=== PATIENT | male | born 1950 | race Caucasian/White ===

== ENCOUNTER → 2018-06-17 08:08 | Outpatient (CLI) | payer MEDICARE, OTHER, SELFPAY ==
[2018-06-17 11:18] LABS: ALB/GLOB Ratio 0.9 RATIO (0.9-2.4); AST(SGOT) 18 U/L (15-37); Alanine Aminotransfer ALT/SGPT 30 U/L (16-61); Albumin, Serum 3.5 g/dL (3.2-5.0); Alkaline Phosphatase 92 U/L (45-117); Anion Gap 6 (5-15); BUN 21 mg/dL (7-18); BUN/Creat Ratio 18.9 RATIO (10-20); Calcium,Total 8.8 mg/dL (8.5-10.1); Chloride 105 mmol/L (98-107); Cholesterol 167 mg/dL (200); Creatinine, Serum 1.11 mg/dL (0.70-1.30); EST Glomerular Filtration Rate 70 mL/min (>60); Est Glom Filt Rate - Afr Amer 85 mL/min (>60); Globulin 3.7 g/dL (2.2-4.2); Glucose 108 mg/dL (74-106); High Density Lipoprotein 43 mg/dL; Potassium 4.5 mmol/L (3.5-5.1); Protein, Total 7.2 g/dL (6.4-8.2); Sodium Level 140 mmol/L (136-145); Triglycerides 164 mg/dL; Very Low Density Lipoprotein 33 mg/dL (5-40)
[2018-06-17 11:19] LABS: Hemoglobin A1c 6.1 % (4.2-6.3)
--- OUTSIDE RECORDS SUMMARY | 2018-08-11 19:01 | XMS RPT_ITS ---
:1950 Author Organization OHIP Care Team Providers Name Role Phone CIRO MENDEZ Attending Unavailable CIRO CAMPOS Attending Unavailable BRYAN QUEEN Attending Unavailable BRYAN QUEEN Referring Unavailable BRYAN QUEEN Primary Care Unavailable PROBLEMS PROBLEMS DATE TYPE CONDITION / CODE ATTENDING STATUS SOURCE 06/17/2018 Unknown E78.5 - BRYAN QUEEN Active [place] Hyperlipidemia, Community unspecified / Hospital E78.5(ICD-10) Repository 06/17/2018 Unknown E11.65 - Type 2 BRYAN QUEEN Active [place] diabetes mellitus [facility] with hyperglycemia Hospital / E11.65(ICD-10) Repository 10/24/2017 Admitting Unknown / Paul MENDEZ [facility] diagnosis UNK(Unknown) CIRO o[facility]ta [facility] Repository PROCEDURES PROCEDURES No Procedure Records FoundRESULTS RESULTS COMPREHENSIVE METABOLIC Collected: 06/17/2018 Status: F Source: LEIGH PROFIL 8:54 AM [facility] HOSPITAL REPOSITORY TYPE CODE TESTS RESULT OUT OF RANGE REFERENCE UNITS LAB L501.0100 74-106 mg/dL High GLU 108 Result Comment: Fasting Glucose result from 100 to 125 mg/dL suggests IMPAIRED HOMEOSTASIS per A.D.A. criteria. Please note revised GLUCOSE reference range effective 2017. LAB L501.1000 7-18 mg/dL High BUN 21 LAB L501.1100 0.70-1.30 mg/dL Normal CREAT,SERUM 1.11 Result Comment: The validity of the calculated GFR AND GFRAA in patients over 70 years has not been determined. Clinical correlation is essential. LAB L501.1110 >60 mL/min Normal EST GFR 70 Result Comment: Non- GFR Calc LAB L501.1115 >60 mL/min Normal EST GFR - AA 85 Result Comment: GFR Calc LAB L501.1300 10-20 RATIO Normal BUN/CRE 18.9 LAB L501.1500 6.4-8.2 g/dL T Normal PROT 7.2 LAB L501.1800 3.2-5.0 g/dL Normal ALB 3.5 LAB L501.1950 2.2-4.2 g/dL Normal GLOB 3.7 LAB L501.2000 0.9-2.4 RATIO Normal A/G 0.9 LAB L501.2200 8.5-10.1 mg/dL CA Normal 8.8 LAB L501.4100 15-37 U/L Normal AST 18 LAB L501.4305 45-117 U/L Normal ALK P 92 LAB L501.4405 16-61 U/L Normal ALT 30 LAB L501.4600 0.20-1.00 mg/dL T Normal BILI 0.30 LAB L501.5300 136-145 mmol/L NA Normal 140 LAB L501.5600 3.5-5.1 mmol/L K Normal 4.5 LAB L501.5900 98-107 mmol/L CL Normal 105 LAB L501.6100 21.0-32.0 mmol/L Normal CO2 29.0 LAB L501.6200 5-15 Normal GAP 6 Performed By: #### L500.4050, L500.4100 #### [facility] [address] [place], [address] LIPID PROFILE Collected: 06/17/2018 Status: F Source: [place]IGHT 8:54 AM [facility] REPOSITORY TYPE CODE TESTS RESULT OUT OF RANGE REFERENCE UNITS LAB L501.4900 200 mg/dL Normal CHOL 167 Result Comment: <200 mg/dL Desirable 200-240 mg/dL Borderline >240 mg/dL High Risk LAB L501.5000 mg/dL Normal TRIG 164 Result Comment: The drugs N-Acetylcysteine and Metamizole may falsely depress this assay. Serum Triglycerides Reference Interval Normal <150 mg/dL Borderline high 150 - 199 mg/dL High 200 - 499 mg/dL Very High > or = 500 mg/dL LAB L501.6400 mg/dL Normal HDL 43 Result Comment: The drugs N-Acetylcysteine and Metamizole may falsely depress this assay. Reference Range HDL <40 mg/dL Low HDL Cholesterol HDL >or= 60 mg/dL High HDL Cholesterol LAB L501.6500 0-130 mg/dL Normal LDL 91 LAB L501.6600 5-40 mg/dL Normal VLDL 33 Performed By: #### L500.4050, L500.4100 #### [facility] [address] [facility] [place], [address] HEMOGLOBIN A1C Collected: 06/17/2018 Status: F Source: AL[place]IGHT 8:54 AM [facility] REPOSITORY TYPE CODE TESTS RESULT OUT OF RANGE REFERENCE UNITS LAB L501.9985 4.2-6.3 % Normal HGB A1C 6.1 Performed By: #### L501.9985 #### [facility] [address] [place], [address] PSA Collected: 11/01/2017 Status: F Source: [facility] 11:27 AM HOSPITAL REPOSITORY TYPE CODE TESTS RESULT OUT OF RANGE REFERENCE UNITS LAB L304.0155 0.0-4.1 ng/mL Normal PSA < 0.1 Result Comment: Limitations: Elevations may also be associated with urethral instrumentation including catheterization of the bladder, TUR, prostatic needle biopsy, urinary retention, or prostatic infarct. Because PSA is also present in para-urethral and anal glands, as well as in breast tissue or with breast cancer, low levels of PSA can also be detected in sera from women. PSA may still be detectable even after radical prostatectomy. Performed By: #### L304.0155 #### [facility] [address] [place] [address] CMP Collected: 10/24/2017 Status: F Source: [facility] 9:48 AM HOSPITAL REPOSITORY TYPE CODE TESTS RESULT OUT OF RANGE REFERENCE UNITS LAB L100.0060 82-115 mg/dL Low GLUCOSE 56 LAB L100.0110 8-23 mg/dL BUN Normal 23 LAB L100.0131 0.70-1.20 mg/dL Normal CREATININE 1.17 LAB L100.0140 8.8-10.2 mg/dL CALCIUM Normal 9.7 LAB L100.0150 135-145 mmol/L SODIUM Normal 141 LAB L100.0160 3.5-5.0 mmol/L Normal POTASSIUM 4.4 LAB L100.0170 98-107 mmol/L CHLORIDE Normal 100 LAB L100.0180 22-29 mmol/L TCO2 Normal 26 LAB L100.0185 15-22 mmol/L ANION Normal GAP 19.4 LAB L100.0200 6.4-8.3 g/dL TOTAL Normal PROTEIN 7.3 LAB L100.0210 3.5-5.2 g/dL ALBUMIN Normal 4.1 LAB L100.0220 0.2-1.2 mg/dL TOTAL Normal BILIRUBIN 0.4 LAB L100.0240 5-40 U/L AST Normal 25 LAB L100.0250 5-41 U/L ALT Normal 31 LAB L100.0260 40-130 U/L ALK. Normal PHOS 89 LAB L100.0262 1.5-4.5 g/dL Normal GLOBULIN,CALC 3.2 LAB L100.0264 1.1-2.5 A:G Normal RATIO 1.28 LAB L100.0274 eGFR Normal nonAFR Kary > 60 ml/Min/1.73m 2 LAB L100.0275 eGFR if Normal AFR KARY > 60 ml/min/1.73m 2 Result Comment: eGFR >= 60 Indicates normal kidney function. * eGFR IS AN ESTIMATE * (AFR KARY = ) (non-AFR AM = NON-) MDRD calculation used in the eGFR should not be used to dose medications. For further limitations of the eGFR please refer to the Physician Website or the National Kidney Disease Education Program website (www.nkdep.nih.gov). Performed By: #### L100.0005, L100.0040 #### [facility] [address] [place] [address] LIPID PANEL Collected: 10/24/2017 Status: F Source: [facility] 9:48 AM HOSPITAL REPOSITORY TYPE CODE TESTS RESULT OUT OF REFERENCE UNITS RANGE LAB L100.0280 130-200 mg/dL CHOLESTEROL Normal 166 LAB L100.0290 mg/dL TRIGLYCERIDE Normal 124 Result Comment: TRIG: DESIRABLE: <150 mg/dL LAB L100.0300 mg/dL Normal HDL 47 Result Comment: HDL: POOR (MEN) BELOW 40 mg/dL POOR (WOMEN) BELOW 50 mg/dL BETTER 50-59 mg/dL BEST 60 mg/dL and above LAB L100.0310 6-40 mg/dL Normal VLDL 25 LAB L100.0320 mg/dL Normal LDL 94 Result Comment: LDL: OPTIMAL FOR PEOPLE AT VERY HIGH RISK <70 OPTIMAL <100 NEAR OPTIMAL 100-129 BORDERLINE HIGH 130-159 HIGH 160-189 VERY HIGH >=190 NOTE: CHANGES MADE TO RECOMMENDED GOALS OF APRIL 2009. Source: 2008 NCEP ATP III, ADA Guidelines LAB L100.0330 Normal LDL/HDL RATIO 2.0 Performed By: #### L100.0005, L100.0040 #### [facility] [address] [place] [address] HGBA1C Collected: 10/24/2017 Status: F Source: [facility] 9:48 AM HOSPITAL REPOSITORY TYPE CODE TESTS RESULT OUT OF RANGE REFERENCE UNITS LAB L200.2000 4.3-6.1 % High HgbA1C 6.2 Result Comment: Estimated Average Glucose: HgbA1C % mg/dL 4.0 68 5.0 97 6.0 125 7.0 154 8.0 183 9.0 212 10.0 240 Source: [place] [employer] web site, 2017. Performed By: #### L200.2000 #### [facility] [address] [place] [address] ALLERGIES ALLERGIES No Allergies Records FoundENCOUNTERS ENCOUNTERS ADMIT/DISCHARGE ACCOUNT ADMITTING ENCOUNTER LOCATION SOURCE NUMBER CLASS 06/17/2018 [id number] Ambulatory [facility]oo [address] [place] [address] Hospital ing:LAB Repository 11/01/2017 [id number] Ambulatory UNIBuilding:L Tracy [address] [facility] Repository 10/24/2017 [id number] Ambulatory UNIBuilding:[address] Repository PAYERS PAYERS ENCOUNTER GUARANTOR PAYER SUBSCRIBER SOURCE 06/17/2018 IRISH NICOLAS26 Insurance:MEDICARE PSYCHIATRICDOB: [facility] [id number]: Repository [id number]: [phone] [id number] [phone] () Date:2018-06-17 06/17/2018 Secondary IRISH D [place] Insurance:[facility] system[facility] NICOLASDOB: [facility] Number: [id number] [id number] Repository Date:[id number], [place] [address]DE: 06/17/2018 Tertiary NOT GIVENUNK [place] Insurance:SELF PAY [facility] Number: Effective Repository Date:2018-06-17 11/01/2017 IRISH D Primary IRISH D [facility]26 Insurance:MEDICAREPol [facility] [address] Number: Repository [place], [place] [id number]: ([phone]) Date:2015-02-15 [phone] () 11/01/2017 Secondary [facility] Insurance:AARP CLAIMS [facility] Repository Number: [id number] Date: 10/24/2017 IRISH D Primary IRISH D [facility]1088 Insurance:MEDICAREPol [facility] [address] icy Number: [facility]ository [facility] [place] [id number]: [phone]) Date:2015-02-15 [phone] () 10/24/2017 Secondary [facility] Insurance:AAR CLAIMS [facility] Repository Number: [id number] Date:
== END ==
DX: E11.65 Type 2 diabetes mellitus with hyperglycemia (principal); E78.5 Hyperlipidemia, unspecified
CPT/HCPCS: 36415; 80053; 80061; 83036

== ENCOUNTER → 2019-08-06 09:14 | Outpatient (CLI) | payer MEDICARE, SELFPAY ==
[2019-08-06 11:16] LABS: Microalbumin,Random Urine 57.3 mg/L (NO RANGE EST.); Microalbumin:Creatinine Ratio 38.2 mg/g CRE (<30 mg/g CRE)
[2019-08-06 11:24] LABS: Hemoglobin A1c 6.6 % (4.2-6.3)
[2019-08-06 11:25] LABS: ALB/GLOB Ratio 0.9 RATIO (0.9-2.4); AST(SGOT) 16 U/L (15-37); Alanine Aminotransfer ALT/SGPT 30 U/L (16-61); Albumin, Serum 3.6 g/dL (3.2-5.0); Alkaline Phosphatase 92 U/L (45-117); Anion Gap 4 (5-15); BUN 19 mg/dL (7-18); BUN/Creat Ratio 14.3 RATIO (10-20); Calcium,Total 9.2 mg/dL (8.5-10.1); Chloride 106 mmol/L (98-107); Cholesterol 143 mg/dL (200); Creatinine, Serum 1.33 mg/dL (0.70-1.30); EST Glomerular Filtration Rate 57 mL/min (>60); Est Glom Filt Rate - Afr Amer 69 mL/min (>60); Glucose 91 mg/dL (74-106); High Density Lipoprotein 39 mg/dL; Potassium 4.1 mmol/L (3.5-5.1); Protein, Total 7.6 g/dL (6.4-8.2); Sodium Level 139 mmol/L (136-145); Triglycerides 153 mg/dL; Very Low Density Lipoprotein 31 mg/dL (5-40)
== END ==
PROVIDERS: PCP Family Medicine; Referring Provider Family Medicine; Visit Provider Family Medicine
DX: E11.9 Type 2 diabetes mellitus without complications (principal); I10 Essential (primary) hypertension; K21.9 Gastro-esophageal reflux disease without esophagitis
CPT/HCPCS: 36415; 80053; 80061; 82043; 82570; 83036

== ENCOUNTER → 2020-08-18 08:28 | Outpatient (CLI) | payer MEDICARE, SELFPAY ==
[2020-08-18 09:11] LABS: Absolute Lymphocyte Count 1.28 X10^3/uL (0.83-4.51); Absolute Neutrophil Count 5.2 X10^3/uL (2.0-7.7); Basophil# 0.05 X10^3/uL; Basophil% 0.7 % (0-1); Eosinophil# 0.22 X10^3/uL; Eosinophils% 2.9 % (0-5); Hematocrit 36.9 % (40-54); Lymphocyte # 1.28 X10^3/ul (4.0); Lymphocyte % 17.1 % (19-41); Mean Corp Hgb Conc 32.5 g/dL (32-36); Mean Corpuscular Hgb 28.8 pg (27.0-32.0); Mean Corpuscular Volume 88.7 fL (80-94); Mean Platelet Vol. 9.6 fl (6.2-12.0); Monocyte# 0.63 X10^3/uL; Monocyte% 8.4 % (0-10); NRBC Flagged by Analyzer 0 % (0-5); Neutrophil # 5.24 X10^3/uL (2.7-7.7); Neutrophil % 70.2 % (47-70); Platelet Count 256 K/mm3 (150-450); RBC Distribution Width CV 13.5 % (11.6-14.6); RBC Distribution Width SD 43.8 fl (35.1-43.9); Red Blood Count 4.16 M/mm3 (4.6-6.2); White Blood Count 7.5 K/mm3 (4.4-11.0)
[2020-08-18 09:40] LABS: AST(SGOT) 22 U/L (15-37); Alanine Aminotransfer ALT/SGPT 31 U/L (16-61); Albumin, Serum 3.8 g/dL (3.2-5.0); Alkaline Phosphatase 100 U/L (45-117); Anion Gap 6 (5-15); BUN 26 mg/dL (7-18); BUN/Creat Ratio 16.8 RATIO (10-20); Calcium,Total 9.5 mg/dL (8.5-10.1); Chloride 102 mmol/L (98-107); Cholesterol 157 mg/dL (200); Creatinine, Serum 1.55 mg/dL (0.70-1.30); EST Glomerular Filtration Rate 47 mL/min (>60); Est Glom Filt Rate - Afr Amer 57 mL/min (>60); Globulin 3.8 g/dL (2.2-4.2); Glucose 117 mg/dL (74-106); High Density Lipoprotein 43 mg/dL; Potassium 4.5 mmol/L (3.5-5.1); Protein, Total 7.6 g/dL (6.4-8.2); Sodium Level 137 mmol/L (136-145); Triglycerides 153 mg/dL; Very Low Density Lipoprotein 31 mg/dL (5-40)
[2020-08-18 10:27] LABS: Microalbumin:Creatinine Ratio 51.7 mg/g CRE (<30 mg/g CRE)
== END ==
PROVIDERS: PCP Family Medicine; Visit Provider Family Medicine
DX: E11.9 Type 2 diabetes mellitus without complications (principal); I10 Essential (primary) hypertension; K21.9 Gastro-esophageal reflux disease without esophagitis
CPT/HCPCS: 36415; 80053; 80061; 82043; 82570; 85025

== ENCOUNTER 2021-04-21 13:43 | Outpatient (CLI) | payer MEDICARE, SELFPAY ==
[2021-04-21 13:55] VITALS: BP 149/56; PULSE 101; RESP 28; TEMP 38.3; O2SAT 88
--- NOTE | 2021-04-21 14:09 | NURSING ---
Pt noted to be tachypneic on arrival to unit with O2 sat ranging from 88-89%. Pt observed for approx 10min with sat up to 90% briefly and back to 88-89%. Yuko Banuelos contacted to update on vital signs. Pt no longer appropriate for infusion and transferred to ED for further evaluation. Pt's Rachael present on unit and agreeable to ED visit.
== END 2021-04-21 14:15 | disposition home or self-care (01) ==
LOC: MS3OUT 13:43 → MS3 13:45
PROVIDERS: PCP Family Medicine; Referring Provider Nurse Practitioner Adult Health; Visit Provider Nurse Practitioner Adult Health
DX: Z23 Encounter for immunization (principal); U07.1 COVID-19
CPT/HCPCS: Q0244

== ENCOUNTER 2021-04-21 14:25 | Inpatient (IN) | payer MEDICARE, SELFPAY ==
[2021-04-21] VITALS (15 sets, daily range): BP systolic 103–130; BP diastolic 53–91; PULSE 77–167; RESP 16–45; TEMP 36.1–37.7; O2SAT 85–97; BMI 42.5; BMI 41.9
--- NOTE | 2021-04-21 14:45 | NURSING ---
NO OLD EKGS
--- NOTE | 2021-04-21 15:03 | EKG12_ITS ---
Test Reason : SOB Blood Pressure : / mmHG Vent. Rate : 130 BPM Atrial Rate : 337 BPM P-R Int : 000 ms QRS Dur : 136 ms QT Int : 348 ms P-R-T Axes : 000 010 -42 degrees QTc Int : 512 ms Atrial flutter with variable A-V block Right bundle branch block T wave abnormality, consider inferolateral ischemia Abnormal ECG Confirmed by KRIS HOFF, ANDIE ([id number]), pictures editor ISABELLA PONCE ([id number]) on 04/27/2021 9:45:26 A M Referred By: BERNY Confirmed By:CAROLYNN PONCE MD
[2021-04-21 15:21] LABS: Absolute Lymphocyte Count 0.63 X10^3/uL (0.83-4.51); Absolute Neutrophil Count 3.9 X10^3/uL (2.0-7.7); Basophil# 0.01 X10^3/uL; Basophil% 0.2 % (0-1); Hemoglobin 12.5 g/dL (13.0-16.5); Lymphocyte # 0.63 X10^3/ul (0.83-4.51); Mean Corp Hgb Conc 32.1 g/dL (32-36); Mean Corpuscular Hgb 28.2 pg (27.0-32.0); Mean Corpuscular Volume 87.8 fL (80-94); Mean Platelet Vol. 9.8 fl (6.2-12.0); Monocyte# 0.28 X10^3/uL; Monocyte% 5.8 % (0-10); NRBC Flagged by Analyzer 0 % (0-5); Neutrophil # 3.86 X10^3/uL (2.7-7.7); Neutrophil % 79.8 % (47-70); POSITIVE MORPHOLOGY YES; Platelet Count 204 K/mm3 (150-450); RBC Distribution Width CV 14.5 % (11.6-14.6); RBC Distribution Width SD 46.6 fl (35.1-43.9); Red Blood Count 4.44 M/mm3 (4.6-6.2); White Blood Count 4.8 K/mm3 (4.4-11.0)
[2021-04-21 15:23] LABS: Differential Indicated SCAN CRITERIA MET
[2021-04-21 15:24] LABS: Partial Thromboplast Time 33.1 Seconds (24.1-36.2); Prothrombin Time (Protime)PT. 12.7 SECONDS (11.7-14.9)
[2021-04-21 15:28] LABS: Erythrocyte Sedimentation Rate 15 mm/hr (0-20)
[2021-04-21 15:39] LABS: Anion Gap 10 (5-15); BUN 47 mg/dL (7-18); BUN/Creat Ratio 16.4 RATIO (10-20); Calcium,Total 8.3 mg/dL (8.5-10.1); Chloride 99 mmol/L (98-107); Creatinine, Serum 2.86 mg/dL (0.70-1.30); EST Glomerular Filtration Rate 23 mL/min (>60); Est Glom Filt Rate - Afr Amer 28 mL/min (>60); Estimated Creatinine Clearance 24.46 ml/min; Glucose 250 mg/dL (74-106); LDH 603 U/L (87-241); Lactic Acid 2.8 mmol/L (0.4-1.9); Potassium 5.4 mmol/L (3.5-5.1); Sodium Level 134 mmol/L (136-145); Troponin-I HS 66 pg/mL (3.0-78.0)
[2021-04-21 15:42] LABS: D-Dimer Quantitative (DVT/PE) 1.34 FEU/ug/m (0.27-0.49)
[2021-04-21] MEDS: Metoprolol Tartrate 5 MG/5 ML Vial IV (15:42)
[2021-04-21 15:44] LABS: Differential Comment SCANNED
[2021-04-21 15:53] LABS: BNP,B-Type NATRIURETIC PEPTIDE 253.4 pg/mL (0-100)
--- NOTE | 2021-04-21 16:42 | ED.VIS.DYS ---
HPI History of Present Illness Chief Complaint: Shortness of Breath Informant: patient Narrative Narrative: Patient is a 71-year-old male that was recently diagnosed with COVID-19 infection presenting with hypoxia. Patient had showed up to the infusion center today for monoclonal antibody infusion. His oxygen there was around 88% on room air. He does not wear home oxygen. He was sent to the emergency room for further evaluation. Patient denies any palpitation but was found to be tachycardic. He notes he is been having worsening shortness of breath of the past 3 days. He denies any swelling of his legs. He is continued to have fevers up to 102?F. He denies any other complaints at this time. He has not had his Covid vaccine. [facility] Medical History Diabetes High cholesterol Hypertension Home Medications aspirin 81 mg chewable tablet 81 mg PO DAILY 04/20/21 [History Last Taken Unknown] atorvastatin 20 mg tablet 20 mg PO DAILY 04/20/21 [History Last Taken Unknown] calcium carbonate 600 mg(1,500 mg)-vitamin D3 800 unit chewable tablet 1 tab PO DAILY 04/20/21 [History Last Taken Unknown] glimepiride 4 mg tablet 4 mg PO DAILY 04/20/21 [History Last Taken Unknown] lisinopril 40 mg tablet 40 mg PO DAILY 04/20/21 [History Last Taken Unknown] loratadine 10 mg tablet 10 mg PO DAILY 04/20/21 [History Last Taken Unknown] metformin 500 mg tablet 1,000 mg PO BID 04/20/21 [History Last Taken Unknown] nlymlxoq-uyg-jryic acid 300 mcg-lycopene 600 mcg-lutein 300 mcg tablet 1 tab PO DAILY 04/20/21 [History Last Taken Unknown] pantoprazole 20 mg tablet,delayed release 20 mg PO DAILY 04/20/21 [History Last Taken Unknown] pioglitazone 45 mg tablet 45 mg PO DAILY 04/20/21 [History Last Taken Unknown] Allergy/AdvReac Type Severity Reaction Status Date / Time No Known Allergies Allergy Unverified 04/20/21 13:19 Social History Smoking Status: Never smoker ROS ROS ED Constitutional Constitutional ED: Reports chills and fever(s) Eyes Eyes: Denies change in vision ENT ENT ED: Reports rhinorrhea; Denies ear pain Cardiovascular Cardiovascular: Denies chest pain, palpitations or racing heartbeat Respiratory/Chest Respiratory/Chest: Reports cough, dyspnea, dyspnea on exertion and sputum Gastrointestinal Gastrointestinal: Denies abdominal pain, nausea or vomiting Genitourinary Genitourinary ED: Denies dysuria Musculoskeletal Musculoskeletal: Reports myalgias; Denies arthralgias Integumentary Denies rash Neurologic Neurologic: Denies weakness Psychiatric Psychiatric: Denies anxiety or depression EXAM Physical Exam Const Vital Signs: 04/21/21 14:26 04/21/21 14:29 04/21/21 14:43 Temperature 97.3 F L 97.3 F L Temperature Source Temporal Temporal Pulse Rate 77 167 H 167 H Respiratory Rate 20 H 45 H 45 H Blood Pressure 130/74 H 129/91 H 129/91 H Blood Pressure Mean 92 103 103 Pulse Ox 85 97 97 Oxygen Delivery Method Nasal Cannula Nasal Cannula Oxygen Flow Rate (L/min) 2 2 04/21/21 15:48 04/21/21 16:00 Temperature Temperature Source Pulse Rate 83 81 Respiratory Rate 18 19 H Blood Pressure 103/58 L 114/58 L Blood Pressure Mean 73 76 Pulse Ox 95 95 Oxygen Delivery Method Room Air Room Air Oxygen Flow Rate (L/min) Positive well nourished, well developed and obese General Appearance ED: well developed Nutritional Appearance: obese HEENT Reports moist mucous membranes atraumatic Eyes PERRL and EOMs intact bilaterally Neck supple and no JVD Resp Resp Narrative: Fine crackles in all lung larkin appreciated Auscultation: diminished lung sounds Cardio no murmurs Rate: tachycardic Rhythm: abnormal rhythm GI non-tender and non-distended Palpation: soft Back/Spine normal to inspection Extremity normal to inspection Neuro CN's II-XII intact bilaterally Sensorium / Orientation: alert Motor Exam: Negative for general weakness Psych mental status grossly normal Skin Lesions: no lesions Rashes: no rashes MDM MDM MDM Narrative Medical decision making narrative: Patient evaluated for worsening hypoxia in the setting of COVID-19 infection. He was diagnosed COVID-19 over the weekend. Patient arrives in the ER and is found to be in atrial flutter with rapid ventricular response. He is hemodynamically stable and does not require immediate cardioversion. He is given 5 mg IV metoprolol and has rate control. I suspect his triggers is hypoxia. Patient is requiring submental oxygen is 85% on room air. He does have a lactic acidosis of 2.8 and I suspect this is secondary to his hypoxia. He does have an PIPE with a creatinine of 2.86. His baseline from earlier this year appears to be 1.55. Initially had ordered a CTA for evaluation of PE in the setting of hypoxia however this is canceled due to his acute renal insufficiency. Patient be placed on a heparin drip for anticoagulation associated with his atrial flutter as well as for possible PE. Chest x-ray still pending. He is admitted to the hospital service. He does have a mild elevation of his high sensitive troponin at 66 however I believe this is strain/rate related. Lab Data Attestation: I reviewed the patient's lab results. Labs: Laboratory Results - last 24 hr 04/21/21 04/21/21 04/21/21 14:42 14:42 14:42 WBC 4.8 RBC 4.44 L Hgb 12.5 L Hct 39.0 L MCV 87.8 MCH 28.2 MCHC 32.1 RDW Std Deviation 46.6 H RDW Coeff of Damion 14.5 Plt Count 204 MPV 9.8 Immature Gran % (Auto) 1.200 H Neut % (Auto) 79.8 H Lymph % (Auto) 13.0 L Hoke % (Auto) 5.8 Eos % (Auto) 0.0 Baso % (Auto) 0.2 Absolute Neuts (auto) 3.9 Absolute Lymphs (auto) 0.63 L Nucleated RBC % 0 Differential Comment SCANNED ESR 15 PT INR APTT D-Dimer Quant (PE/DVT) Sodium 134 L Potassium 5.4 H Chloride 99 Carbon Dioxide 25.0 Anion Gap 10 BUN 47 H Creatinine 2.86 H Estim Creat Clear Calc 24.46 Est GFR (MDRD) Af Amer 28 L Est GFR (MDRD) Non-Af 23 L BUN/Creatinine Ratio 16.4 Glucose 250 H Lactic Acid 2.8 H* Calcium 8.3 L Lactate Dehydrogenase 603 H Troponin I High Sens 66 C-React Prot Ext Range 72.70 H B-Natriuretic Peptide 04/21/21 04/21/21 14:42 15:10 WBC RBC Hgb Hct MCV MCH MCHC RDW Std Deviation RDW Coeff of Damion Plt Count MPV Immature Gran % (Auto) Neut % (Auto) Lymph % (Auto) Hoke % (Auto) Eos % (Auto) Baso % (Auto) Absolute Neuts (auto) Absolute Lymphs (auto) Nucleated RBC % Differential Comment ESR PT 12.7 INR 1.0 APTT 33.1 D-Dimer Quant (PE/DVT) 1.34 H* Sodium Potassium Chloride Carbon Dioxide Anion Gap BUN Creatinine Estim Creat Clear Calc Est GFR (MDRD) Af Amer Est GFR (MDRD) Non-Af BUN/Creatinine Ratio Glucose Lactic Acid Calcium Lactate Dehydrogenase Troponin I High Sens C-React Prot Ext Range B-Natriuretic Peptide 253.4 H Rhythm Strip Rhythm Strip: A-fib Rate: 130 Ectopy: None EKG Initial EKG: Attestation: I personally reviewed and interpreted this EKG as follows: Interpretation: Atrial Flutter Comments: Atrial flutter with very variable AV block at a rate of 130 Normal axis Right bundle branch block QRS 136 QTc 512 T wave inversions in inferior as well as precordial leads however I suspect this is strain related Discharge Plan Triage Chief Complaint: Shortness of Breath ED Provider: Aida Lara Dx/Rx/DC Orders Clinical Impression: Acute hypoxemic respiratory failure due to COVID-19, Atrial flutter with rapid ventricular response, Acute kidney insufficiency Prescriptions: No Action Caltrate 600 plus D 600 mg (1,500 mg)-800 unit tablet,chewable 1 tab PO DAILY RF: 0 Centrum Silver Men 300-600-300 mcg tablet 1 tab PO DAILY RF: 0 atorvastatin [Lipitor] 20 mg tablet 20 mg PO DAILY RF: 0 metformin 500 mg tablet 1,000 mg PO BID RF: 0 pioglitazone [Actos] 45 mg tablet 45 mg PO DAILY RF: 0 glimepiride 4 mg tablet 4 mg PO DAILY RF: 0 pantoprazole 20 mg tablet,delayed release (DR/EC) 20 mg PO DAILY RF: 0 loratadine [Allergy Relief (loratadine)] 10 mg tablet 10 mg PO DAILY RF: 0 aspirin [Neto Chewable Aspirin] 81 mg tablet,chewable 81 mg PO DAILY RF: 0 lisinopril 40 mg tablet 40 mg PO DAILY RF: 0 Primary Care Provider: Krissy Jean Baptiste Referrals: Krissy Jean Baptiste MD [Primary Care Provider] - Disposition Disposition: Acute Care [facility]
--- NOTE | 2021-04-21 16:43 | PCM.HP.STD ---
HPI - General General Date of Admission: 04/21/21 Date of Service: 04/21/21 Chief Complaint: COVID +, Dyspnea, Hypoxic, sent from infusion center HPI Narrative The patient is a 71 y/o M w/ PMHx: Chronic anemia, Morbid Obesity, HTN, HLD, Diabetes mellitus type II, FARSHAD on CPAP qHS who presents to the [facility] ED on 04/21/21 with history of unvaccinated Covid status with initial onset of Covid type symptoms starting 04/14/2021 eventually testing positive on 04/20/2021 with planned outpatient monoclonal antibody infusion on day of ED presentation however he upon evaluation was noted to be 85% on room air therefore immediately referred to the ED for evaluation. Patient reported symptoms including fever, chills, headache, mildly loose stools with abdominal cramping, cough and dyspnea as well as body aches, fatigue and malaise. Work-up in the ED included T101, heart rate 149/56, respiratory rate 28, 88% on room air however did decrease to 85% with activity, improved to 97% on 2 L nasal cannula, CBC with WBC 4.8, hemoglobin 12.5, platelet 204 with lymphopenia, coags with D-dimer 1.34 otherwise not marked appearing, CMP with sodium 134, potassium 5.4, BUN/creatinine 47/2.89, glucose 250, lactic acid 2.8, LDH 603, CRP 72.70, BNP 253.4, high-sensitivity cardiac troponin 66, chest x-ray with bilateral pulmonary infiltrates consistent with COVID-19 pneumonia. In the ED patient ministered 6 mg p.o. dexamethasone, normal saline as well as initiated on a heparin drip. [facility] Medical History (Updated 04/21/21 @ 19:[address] Viridiana Gilbert MD) Diabetes High cholesterol History of prostate cancer Hypertension Morbid obesity FARSHAD (obstructive sleep apnea) Home Medications aspirin 81 mg chewable tablet 81 mg PO DAILY 04/20/21 [History Last Taken 04/21/21] atorvastatin 20 mg tablet 20 mg PO DAILY 04/20/21 [History Last Taken 04/21/21] calcium carbonate 600 mg(1,500 mg)-vitamin D3 800 unit chewable tablet 1 tab PO DAILY 04/20/21 [History Last Taken 04/20/21] glimepiride 4 mg tablet 4 mg PO BID 04/20/21 [History Last Taken 04/21/21] lisinopril 40 mg tablet 40 mg PO DAILY 04/20/21 [History Last Taken 04/20/21] loratadine 10 mg tablet 10 mg PO DAILY 04/20/21 [History Last Taken 04/20/21] hwabauqo-eiu-cldkp acid 300 mcg-lycopene 600 mcg-lutein 300 mcg tablet 1 tab PO DAILY 04/20/21 [History Last Taken 04/21/21] pantoprazole 20 mg tablet,delayed release 20 mg PO DAILY 04/20/21 [History Last Taken 04/20/21] pioglitazone 45 mg tablet 45 mg PO DAILY 04/20/21 [History Last Taken 04/21/21] metformin 1,000 mg PO BID 04/21/21 [History Last Taken 04/21/21] Allergy/AdvReac Type Severity Reaction Status Date / Time No Known Allergies Allergy Unverified 04/20/21 13:19 Family History (Updated 04/21/21 @ 19:[address] Viridiana Gilbert MD) Mother CVA (cerebral vascular accident) Diabetes Heart disease Father CVA (cerebral vascular accident) Diabetes Heart disease Surgical History (Updated 04/21/21 @ 19:[address] Viridiana Gilbert MD) S/P cholecystectomy S/P parathyroidectomy S/P prostatectomy Social History (Updated 04/21/21 @ 19:[address] Viridiana Gilbert MD) household members: none Smoking Status: Never smoker alcohol intake: never substance use type: does not use ROS ROS Narrative Admission Review of Systems: CONSTITUTIONAL: No weight loss, + fever, chills, weakness or fatigue. HEENT: Eyes: No visual loss, blurred vision, double vision or yellow sclerae. Ears, Nose, Throat: No hearing loss, sneezing, congestion, runny nose or sore throat. SKIN: No rash or itching, lesions, wounds. CARDIOVASCULAR: No chest pain, chest pressure or chest discomfort, palpitations, edema, orthopnea, syncopal events. RESPIRATORY: + shortness of breath, cough without marked sputum, No wheezing, hemoptysis. GASTROINTESTINAL: + anorexia, nausea without vomiting, diarrhea, abdominal pain, No melena, BRBPR. GENITOURINARY: No dysuria, frequency, urgency or retention. NEUROLOGICAL: + headache, No dizziness, syncope, paralysis, ataxia, numbness or tingling in the extremities, focal weakness, change in bowel or bladder control, seizure. MUSCULOSKELETAL: + muscle, back pain, joint pain or stiffness. HEMATOLOGIC: No anemia, bleeding or bruising. LYMPHATICS: No enlarged nodes. No history of splenectomy. PSYCHIATRIC: No history of depression or anxiety. ENDOCRINOLOGIC: + reports of sweating, cold or heat intolerance. No polyuria or polydipsia. ALLERGIES: No history of asthma, hives, eczema or rhinitis. Vital Signs Vital Signs Vital Signs: 04/21/21 14:26 04/21/21 14:29 04/21/21 14:43 Temperature 97.3 F L 97.3 F L Temperature Source Temporal Temporal Pulse Rate 77 167 H 167 H Respiratory Rate 20 H 45 H 45 H Blood Pressure 130/74 H 129/91 H 129/91 H Blood Pressure Mean 92 103 103 Pulse Ox 85 97 97 Oxygen Delivery Method Nasal Cannula Nasal Cannula Oxygen Flow Rate (L/min) 2 2 04/21/21 15:48 04/21/21 16:00 04/21/21 16:29 Temperature 96.9 F L Temperature Source Temporal Pulse Rate 83 81 83 Respiratory Rate 18 19 H 19 H Blood Pressure 103/58 L 114/58 L 114/53 L Blood Pressure Mean 73 76 73 Pulse Ox 95 95 95 Oxygen Delivery Method Room Air Room Air Room Air Oxygen Flow Rate (L/min) Weight Weight: 296 lb Body Mass Index (BMI) 42.5 Physical Exam Narrative Physical Examination: General: Awake, alert, oriented x 3 and cooperative, seated upright in the ED bed in no apparent distress, fatigued and ill-appearing. Skin: Normal color, normal turgor, no icterus, no cyanosis. HEENT: AT/NC, EOMI, PERRLA, dry MM, no carotid bruits or JVD noted. Lungs: Diffusely diminished, greater bases, mildly decreased effort, mildly increased respiratory rate, no rales, ronchi or wheezing. Heart: Irregular irregular; no gallop, rub audible. Abdomen: Soft, morbidly obese, NTTP, difficulty discerning distention given habitus, distant mildly hyperactive BS, no obvious evidence of HSM; however, habitus makes examination difficult. Extremities: No cyanosis, clubbing, or edema. Neurological: Patient awake, alert, oriented as noted, cognitive function intact; pupils equally reactive to light and accommodation, cranial nerves II-XII grossly normal, moving all 4 extremities, no focal deficits, strength severely globally secondary to acute presentation. Psychiatric: Affect appears fatigued, ill-appearing, no acute evidence of depressive or anxiety feelings. Results Lab / Micro Data Result Diagrams: 04/21/21 14:42 04/21/21 14:42 Labs: Laboratory Results - last 24 hr 04/21/21 14:42: WBC 4.8, RBC 4.44 L, Hgb 12.5 L, Hct 39.0 L, MCV 87.8, MCH 28.2, MCHC 32.1, RDW Std Deviation 46.6 H, RDW Coeff of Damion 14.5, Plt Count 204, MPV 9.8, Immature Gran % (Auto) 1.200 H, Neut % (Auto) 79.8 H, Lymph % (Auto) 13.0 L, [place] % (Auto) 5.8, Eos % (Auto) 0.0, Baso % (Auto) 0.2, Absolute Neuts (auto) 3.9, Absolute Lymphs (auto) 0.63 L, Nucleated RBC % 0, Differential Comment SCANNED, ESR 15 04/21/21 14:42: Sodium 134 L, Potassium 5.4 H, Chloride 99, Carbon Dioxide 25.0, Anion Gap 10, BUN 47 H, Creatinine 2.86 H, Estim Creat Clear Calc 24.46, Est GFR (MDRD) Af Amer 28 L, Est GFR (MDRD) Non-Af 23 L, BUN/Creatinine Ratio 16.4, Glucose 250 H, Calcium 8.3 L, Lactate Dehydrogenase 603 H, Troponin I High Sens 66, C-React Prot Ext Range 72.70 H 04/21/21 14:42: Lactic Acid 2.8 H* 04/21/21 14:42: B-Natriuretic Peptide 253.4 H 04/21/21 15:10: PT 12.7, INR 1.0, APTT 33.1, D-Dimer Quant (PE/DVT) 1.34 H* Assessment & Plan Assessment/Plan (1) Pneumonia due to COVID-19 virus: (2) Hypoxia: PLAN: The patient is a 71 y/o M w/ PMHx: Chronic anemia, Morbid Obesity, HTN, HLD, Diabetes mellitus type II, FARSHAD on CPAP qHS who presents to the [facility] ED on 04/21/21 with history of unvaccinated Covid status with initial onset of Covid type symptoms starting 04/14/2021 eventually testing positive on 04/20/2021 with planned outpatient monoclonal antibody infusion on day of ED presentation however he upon evaluation was noted to be 85% on room air therefore immediately referred to the ED for evaluation. 1. Acute Hypoxia secondary to Bilateral Pneumonia secondary to Acute Viral Syndrome, COVID-19 with associated lactic acidosis likely secondary to hypoxemia: Acute Severe Sepsis secondary to Acute Pneumonia secondary to Acute Viral Syndrome, COVID-19: Will admit to the COVID unit, will maintain on oxygen with wean as tolerated to room air, PRN albuterol, HOB, IS parameters w/ pending sputum cultures, respiratory viral panel and urine antigens, will obtain procalcitonin, Ferritin, continue supportive care including q 2 hour turning including prone given no prone bed availability and judicious hydration, closely monitor for worsening status for ARDS and multiorgan failure, will initiate and continue IV decadron x 10 doses, not candidate for remedesivir given PIPE. Pending BL LE Duplex US given elevated D-dimer, unable to obtain CTPA given PIPE as noted, continued on heparin drip. 2. New onset, Paroxsymal atrial flutter: EKG in ED w/ atrial flutter w/ RVR, noted rate 130-160s in the ED worse with exertion. Patient administered lopressor 5 mg IV x 1 in ED. Will admit to PCU, maintain on telemetry, obtain cardiac enzyme serial set, obtain magnesium level, obtain ECHO, obtain TSH level. CHADs scoring appropriate for anticoagulation start, will continue heparin drip at this time. Will start metoprolol oral regimen BID given success with IV lopressor. 3. Acute kidney injury on CKD stage III, unclear subtype: Secondary to acute presentation as noted #1. Admission BUN/Cr 47/2.86, prior baseline creatinine noted to be 1.55. Will hydrate judiciously given #1, hold nephrotoxic medications and repeat chemistry in AM. If no improvement would plan FeNa and renal ultrasound assessment. 4. Diabetes mellitus type II: Hold oral home regimen, ADA diet, accu checks w/ ISS. 5. Hypertension: Holding lisinopril given PIPE as noted, starting metoprolol as noted above with hold parameters as needed, PRN hydralazine. 6. Hyperlipidemia: Continue home statin regimen. 7. Morbid Obesity: Weight loss and lifestyle changes encouraged. 8. Chronic normocytic anemia: Admission hemoglobin 12.5, prior similar, continue to trend. 9. FARSHAD: CPAP nightly. 10. DVT prophylaxis: SCDs, continue heparin drip as noted above. 11. CODE status: Patient HCPOA and living will is not in place. Given acute presentation with bilateral Covid pneumonia with hypoxia, discussed CODE status at length including difference between FULL code, DNR-CCA and DNR-CC status. Following discussions about the differences in these status, requested Full Code status. Amenable to airvo and BIPAP if needed. Advanced Care Planning Face to Face Time: 16 minutes. Charges/Coding Visit Charges Inpatient E&M: 11509 Init Hosp L3 Procedures Hospitalists Procedures: 51137 Advncd Care Plan 30 Min
--- NOTE | 2021-04-21 16:50 | RAD_ITS ---
STUDY: X-RAY CHEST REASON FOR EXAM: Male, 71 years old. Hypoxia. Code 285% on room air. Tested COVID positive yesterday. Symptoms began April 14. Patient was to have antibody infusion today. TECHNIQUE: Single AP portable view of the chest. COMPARISON: None. FINDINGS: The lungs are hypoexpanded. There is patchy infiltrates at the left lung base. There is density along the horizontal fissure right lung base. There is no demonstrated pleural abnormality. Normal size heart. Normal mediastinum and bill. Normal visualized pulmonary arteries. Normal visualized aortic arch and descending thoracic aorta. There are diffuse degenerative changes of the visualized thoracic spine. Normal visualized ribs, clavicles, and shoulders. There is no demonstrated abnormality of the visualized soft tissue structures of the upper abdomen. RAD/Chest 1 View (Portable) IMPRESSION: Bibasilar pulmonary infiltrates consistent with but not diagnostic of COVID 19 pneumonia. Electronically Signed: Cesar Orta DO at 17:19 EDT Tel [phone], Service support ,
--- NOTE | 2021-04-21 16:53 | NURSING ---
DR HENNING FOR DR MISHRA
--- NOTE | 2021-04-21 16:59 | NURSING ---
PCU WHITE HYPOXIA, COVID 19, NEW ONSET AFIB
[2021-04-21] MEDS: dexAMETHasone 4 MG Tablet 6 MG PO (17:05)
[2021-04-21] MEDS: Heparin Injection (Vial) 5,000 UNIT/ML VIAL 10500 UNIT IV (17:05)
[2021-04-21] MEDS: 0.9% Normal Saline 1,000 ML 150 ML IV (17:07)
[2021-04-21] MEDS: HEPARIN/D5w 25,000 UNITS 25,000 UNITS/250 ML IV.SOLN. 17 UNITS IV (17:08)
--- NOTE | 2021-04-21 17:32 | ECHOD_ITS ---
Reason For Study: PAF Procedure This was a 2D Doppler, Color Flow transthoracic echocardiogram. Exam performed portable in patient room. The exam was abbreviated due to the COVID 19 protocol. Left Ventricle Normal LV size. Left ventricular systolic function is normal. The estimated ejection fraction is 55 %. No regional wall motion abnormalities noted. Right Ventricle Normal RV size. Normal systolic function. Atria Normal left atrium. Normal right atrium. Mitral Valve Normal mitral valve. Tricuspid Valve Normal tricuspid valve. Aortic Valve Trisinus/trileaflet aortic valve. Great Vessels Normal aortic root. The pulmonary artery is normal size. Normal inferior vena cava. Pericardium/Pleural No pericardial effusion. MMode/2D Measurements & Calculations LVIDd: 4.2 cm IVSd: 1.1 cm Ao root diam: 3.7 cm LVIDs: 2.1 cm LVPWd: 1.1 cm FS: 49.1 % LA dimension(2D): 3.2 cm Doppler Measurements & Calculations MV E max mauro: 97.0 cm/sec Ao V2 max: 120.8 cm/sec LV V1 max: 96.4 cm/sec Ao max P.8 mmHg LV V1 max P.7 mmHg ECHO/Echo Complete Interpretation Summary Normal LV size. Left ventricular systolic function is normal. The estimated ejection fraction is 55 %. Structurally normal valves. Ordering Physician: Viridiana Gilbert Referring Physician: Krissy Jean Baptiste Performed By: Chelsie Carmichael RDCS
[2021-04-21 17:55] LABS: Ferritin 906 ng/mL (26-388); Procalcitonin 0.25 ng/mL (0.00-0.09)
[2021-04-21] MEDS: 0.9% Normal Saline 1,000 ML 125 ML IV (18:00)
[2021-04-21 18:48] LABS: Troponin-I HS 71 pg/mL (3.0-78.0)
[2021-04-21] MEDS: Metoprolol Tartrate 25 MG Tablet PO (18:56)
[2021-04-21 19:14] LABS: Reflex Lactate? Y
[2021-04-21 19:37] LABS: Lactic Acid 3.1 mmol/L (0.4-1.9)
--- NOTE | 2021-04-21 19:56 | PCS.PANDOC ---
PANDEMIC DOCUMENTATION INITIATED: Date: 03/02/2021 Time: 190
[2021-04-21 21:01] LABS: Troponin-I HS 59 pg/mL (3.0-78.0)
[2021-04-21] MEDS: Insulin Lispro 100 UNIT/ML INSULN.PEN SC (21:39)
[2021-04-21 22:50] LABS: Bedside Glucose 226 mg/dL (70-110)
[2021-04-21 23:36] LABS: Partial Thromboplast Time > 250.0 Seconds (24.1-36.2)
[2021-04-22] VITALS (17 sets, daily range): BP systolic 110–156; BP diastolic 68–107; PULSE 66–133; RESP 16–32; TEMP 36.6–37.2; O2SAT 90–98
[2021-04-22] MEDS: 0.9% Normal Saline 1,000 ML 125 ML IV (02:15)
[2021-04-22] MEDS: Insulin Lispro 100 UNIT/ML INSULN.PEN SC ×4 (06:46→22:18)
[2021-04-22 07:01] LABS: Bedside Glucose 217 mg/dL (70-110)
[2021-04-22 07:32] LABS: Absolute Neutrophil Count 3.2 X10^3/uL (2.0-7.7); Basophil# 0.03 X10^3/uL; Basophil% 0.7 % (0-1); Hematocrit 39.8 % (40-54); Hemoglobin 12.1 g/dL (13.0-16.5); Lymphocyte % 17.9 % (19-41); Mean Corp Hgb Conc 30.4 g/dL (32-36); Mean Corpuscular Hgb 27.8 pg (27.0-32.0); Mean Corpuscular Volume 91.5 fL (80-94); Mean Platelet Vol. 9.6 fl (6.2-12.0); Monocyte# 0.33 X10^3/uL; Monocyte% 7.4 % (0-10); NRBC Flagged by Analyzer 0 % (0-5); Neutrophil # 3.23 X10^3/uL (2.7-7.7); POSITIVE MORPHOLOGY YES; Platelet Count 184 K/mm3 (150-450); RBC Distribution Width CV 14.7 % (11.6-14.6); RBC Distribution Width SD 49.7 fl (35.1-43.9); Red Blood Count 4.35 M/mm3 (4.6-6.2); White Blood Count 4.5 K/mm3 (4.4-11.0)
[2021-04-22 08:06] LABS: Differential Indicated SCAN CRITERIA MET
[2021-04-22 08:18] LABS: Hypochromasia RARE; Platelet Estimate ADEQUATE (ADEQ)
[2021-04-22 08:22] LABS: ALB/GLOB Ratio 0.5 RATIO (0.9-2.4); AST(SGOT) 127 U/L (15-37); Alanine Aminotransfer ALT/SGPT 89 U/L (16-61); Albumin, Serum 2.5 g/dL (3.2-5.0); Alkaline Phosphatase 72 U/L (45-117); Anion Gap 6 (5-15); BUN 52 mg/dL (7-18); BUN/Creat Ratio 25.6 RATIO (10-20); Chloride 108 mmol/L (98-107); Cholesterol 96 mg/dL (200); Creatinine, Serum 2.03 mg/dL (0.70-1.30); EST Glomerular Filtration Rate 35 mL/min (>60); Est Glom Filt Rate - Afr Amer 42 mL/min (>60); Estimated Creatinine Clearance 34.46 ml/min; Globulin 4.9 g/dL (2.2-4.2); Glucose 235 mg/dL (74-106); High Density Lipoprotein 49 mg/dL; Potassium 5.7 mmol/L (3.5-5.1); Protein, Total 7.4 g/dL (6.4-8.2); Sodium Level 134 mmol/L (136-145); Thyroid Stim Hormone (TSH) 0.66 uIU/mL (0.358-3.74); Triglycerides 104 mg/dL; Very Low Density Lipoprotein 21 mg/dL (5-40)
[2021-04-22 08:33] LABS: Partial Thromboplast Time 198.9 Seconds (24.1-36.2)
[2021-04-22] MEDS: Pantoprazole Sodium 20 MG Tablet PO (08:57)
[2021-04-22] MEDS: dexAMETHasone 4 MG/ML Vial 6 MG IV (08:57)
[2021-04-22] MEDS: Metoprolol Tartrate 25 MG Tablet PO ×2 (08:57→19:00)
[2021-04-22] MEDS: Aspirin 81 MG TAB.CHEW PO (08:58)
[2021-04-22] MEDS: Loratadine 10 MG Tablet PO (08:58)
[2021-04-22] MEDS: Atorvastatin Calcium 20 MG Tablet PO (08:58)
--- NOTE | 2021-04-22 09:08 | CASEMGMT ---
SURENDRA GRANT assessment: Initial transition planning/care coordination assessment. RN RUDY introduced self and role at [facility], pt voices understanding and consents to assessment. Pt is currently on 9L nc and speaks in full sentences. Pt is A/O x4 and answers all questions appropriately. Pt states also tested positive and is at home with no concerns. Pt states tested positive at [facility] clinic on 04/20/21. Pt states no concerns getting resources once home and states they do not currently have a pulse ox at home. Pt states he is not vaccinated for COVID. Care providers, pharmacy, and demographics verified. Presentation: Pt was sent over from OP infusion(where he was to get monoclonal antibodies) d/t pulse ox of 85% Admitting dx: Hypoxia, COVID, new onset flutter PCP: [facility] Specialists: Pt states no current specialists. Preferred Pharmacy: [facility] Insurance: [facility] Prescription Benefit: [employer] Living Will/HPOA: Pt states does not have LW/HPOA. LNOK: Rachael Elizabeth, Living Arrangements: Pt states lives with in 1 story home and states no concerns at home. Pt is independent with ADL's. Transportation: Pt states drives self and states no transportation concerns. DME/HHC: Pt states has a cpap at home thru [employer] and would like [employer] for DME company,if qualifies for home oxygen. Pt will need order for O2 bleed in for cpap if qualifies for continuous home oxygen. Pt states no need for any further DME. Pt states no hx of HHC or SNF. Pt states no concerns with going home at time of discharge. Pt is retired. Pt states does not smoke cigarettes or drink ETOH. Pt voices no further concerns/needs. CM to follow for home oxygen testing and any further discharge planning/needs. Advised pt to ask for CM if any further questions/concerns/needs arise, voices understanding. Pt Goal: Home Plan: Home, pending home oxygen qualification. [place] SURENDRA GRANT
--- NOTE | 2021-04-22 10:20 | PN.HOSP_ITS ---
Subjective Subjective Patient is a 71-year-old gentleman with multiple comorbidities unvaccinated against COVID-19 who presented with progressive shortness of breath. Patient symptoms started almost a week prior to his admission. His Covid diagnosis was on 04/20/2021. He did receive monoclonal antibody therapy as outpatient however due to progressive and worsening symptoms he presented to the emergency department Objective Data Objective Data Vital Signs: Vital Signs Temp Pulse Resp BP Pulse Ox 98.3 F 114 H 28 H 115/68 93 04/22/21 09:02 04/22/21 09:02 04/22/21 09:02 04/22/21 09:02 04/22/21 09:02 Oxygen Flow Rate (L/min) 9 Oxygen Delivery Method Nasal Cannula Weight: 133 kg Body Mass Index (BMI) 41.9 Intake & Output: Intake and Output for Last 24 Hours 04/20/21 04/21/21 04/22/21 23:59 23:59 23:59 Intake Total 864.73 / 864.73 2066.43 / 2066.43 Balance 864.73 / 864.73 2066.43 / 2065.43 Lab / Micro Data Result Diagrams: 04/22/21 06:58 04/22/21 06:58 Labs: Laboratory Results - last 24 hr 04/21/21 14:42: WBC 4.8, RBC 4.44 L, Hgb 12.5 L, Hct 39.0 L, MCV 87.8, MCH 28.2, MCHC 32.1, RDW Std Deviation 46.6 H, RDW Coeff of Damion 14.5, Plt Count 204, MPV 9.8, Immature Gran % (Auto) 1.200 H, Neut % (Auto) 79.8 H, Lymph % (Auto) 13.0 L , [place] % (Auto) 5.8, Eos % (Auto) 0.0, Baso % (Auto) 0.2, Absolute Neuts (auto) 3.9, Absolute Lymphs (auto) 0.63 L, Nucleated RBC % 0, Differential Comment SCANNED, ESR 15 04/21/21 14:42: Sodium 134 L, Potassium 5.4 H, Chloride 99, Carbon Dioxide 25.0, Anion Gap 10, BUN 47 H, Creatinine 2.86 H, Estim Creat Clear Calc 24.46, Est GFR (MDRD) Af Amer 28 L, Est GFR (MDRD) Non-Af 23 L, BUN/Creatinine Ratio 16.4, Glucose 250 H, Calcium 8.3 L, Lactate Dehydrogenase 603 H, Troponin I High Sens 66, C-React Prot Ext Range 72.70 H 04/21/21 14:42: Lactic Acid 2.8 H* 04/21/21 14:42: B-Natriuretic Peptide 253.4 H 04/21/21 14:42: Ferritin 906 H, C-React Prot Ext Range 72.20 H 04/21/21 14:42: Procalcitonin 0.25 H 04/21/21 15:10: PT 12.7, INR 1.0, APTT 33.1, D-Dimer Quant (PE/DVT) 1.34 H* 04/21/21 18:19: Troponin I High Sens 71 04/21/21 18:19: Lactic Acid 3.1 H* 04/21/21 20:30: Troponin I High Sens 59 04/21/21 21:30: POC Glucose 226 H 04/21/21 22:50: APTT > 250.0 H* 04/22/21 06:45: POC Glucose 217 H 04/22/21 06:58: WBC 4.5, RBC 4.35 L, Hgb 12.1 L, Hct 39.8 L, MCV 91.5, MCH 27.8, MCHC 30.4 L D, RDW Std Deviation 49.7 H, RDW Coeff of [place]ion 14.7 H, Plt Count 184, MPV 9.6, Immature Gran % (Auto) 2.000 H, Neut % (Auto) 72.0 H, Lymph % (Auto) 17.9 L, [place] % (Auto) 7.4, Eos % (Auto) 0.0, Baso % (Auto) 0.7, Absolute Neuts (auto) 3.2, Absolute Lymphs (auto) 0.80 L, Nucleated RBC % 0, Platelet Estimate ADEQUATE, Hypochromasia RARE 04/22/21 06:58: Sodium 134 L, Potassium 5.7 H, Chloride 108 H, Carbon Dioxide 20.0 L, Anion Gap 6, BUN 52 H, Creatinine 2.03 H, Estim Creat Clear Calc 34.46, Est GFR (MDRD) Af Amer 42 L, Est GFR (MDRD) Non-Af 35 L, BUN/Creatinine Ratio 25.6 H, Glucose 235 H, Calcium 8.0 L, Total Bilirubin 0.40, AST 127 H, ALT 89 H, Alkaline Phosphatase 72, Total Protein 7.4, Albumin 2.5 L, Globulin 4.9 H, Al bumin/Globulin Ratio 0.5 L, Triglycerides 104, Cholesterol 96, LDL Cholesterol 26, VLDL Cholesterol 21, HDL Cholesterol 49, TSH 0.66 04/22/21 06:58: APTT 198.9 H* Micro: Microbiology 04/21/21 19:51 Mucosa - Nasopharyngeal Respiratory Panel (PCR) - Final 04/21/21 19:05 Urine, Clean Catch Legionella Antigen - Final Radiography Diagnostic Testing: Radiology Impression Chest X-Ray 04/21/21 16:50 IMPRESSION: Bibasilar pulmonary infiltrates consistent with but not diagnostic of COVID 19 pneumonia. Electronically Signed: Cesar Orta DO at 17:19 EDT Tel [phone], Service support , Rhythm Strip Rhythm Strip: A-fib Rate: 130 Ectopy: None Physical Exam Narrative GENERAL: cooperative but appears ill looking HEENT: Atraumatic; EYES; Anicteric, Normal Conjunctiva NECK; supple, normal thyroid, RESPIRATORY: Diminished to auscultation CARDIOVASCULAR: Regular S1 S2, GI: soft, normoactive bowel sounds, : No Renal angle tenderness; EXTREMITIES: No edema, no clubbing, MUSCULOSKELETAL: no muscle waisting NEURO: Awake; no lateralizing signs. SKIN: No Rash PSYCH; Flat affect Assessment & Plan Assessment/Plan (1) Pneumonia due to COVID-19 virus: (2) Hypoxia: PLAN: Patient is a 71-year-old gentleman with multiple comorbidities unva ccinated against COVID-19 who presented with progressive shortness of breath. Patient symptoms started almost a week prior to his admission. His Covid diagnosis was on 04/20/2021. He did receive monoclonal antibody therapy as outpatient however due to progressive and worsening symptoms he presented to the emergency department 1. Acute hypoxic respiratory failure ?Secondary to SARS-CoV-2 pneumonia checks x-ray obtained on admission demonstrated bibasilar infiltrate consistent with COVID-19 pneumonia. Patient admitted to monitored bed started on supplemental oxygen in addition to Decadron. Patient was not started on remdesivir due to his impaired kidney function 2. Hyperkalemia ?Secondary to impaired kidney function. An order was given for Kayexalate repeat potassium ordered 3. Dyslipidemia -Patient is on statin therapy, continued at home dose 4. Morbid obesity with BMI of 42.1 ?Weight loss advised 5. Diabetes mellitus type 2 ?Held patient oral hypoglycemic agent placed on long-acting insulin in addition to Accu-Cheks before meals and at bedtime with sliding scale coverage 6. Essential hypertension ?Patient is on lisinopril held in view of his impaired kidney function 7. GERD ?On PPI 8. New onset A. fib/flutter ?Rate currently controlled 9. Obstructive sleep apnea ?Patient is on CPAP at night 10. DVT prophylaxis ?Patient is on heparin Charges/Coding Visit Charges Inpatient E&M: 75676 Subs Hosp L3
[2021-04-22 11:50] LABS: Bedside Glucose 267 mg/dL (70-110)
[2021-04-22] MEDS: HEPARIN/D5w 25,000 UNITS 25,000 UNITS/250 ML IV.SOLN. 11 UNITS IV (14:40)
[2021-04-22] MEDS: Sodium Polystyrene Sulfonate 15 GM/60 ML UDC 30 GM PO (17:18)
[2021-04-22 17:41] LABS: Bedside Glucose 295 mg/dL (70-110)
--- NOTE | 2021-04-22 20:01 | NURSING ---
pt's updated on POC
[2021-04-22 21:12] LABS: Anion Gap 10 (5-15); BUN 52 mg/dL (7-18); Calcium,Total 7.9 mg/dL (8.5-10.1); Chloride 107 mmol/L (98-107); EST Glomerular Filtration Rate 35 mL/min (>60); Est Glom Filt Rate - Afr Amer 43 mL/min (>60); Estimated Creatinine Clearance 34.98 ml/min; Glucose 344 mg/dL (74-106); Potassium 5.2 mmol/L (3.5-5.1); Sodium Level 137 mmol/L (136-145)
[2021-04-22] MEDS: Acetaminophen 325 MG Tablet 650 MG PO (21:33)
[2021-04-22] MEDS: guaiFENesin 10 ML UDC (200MG/10ML) 20 ML PO (21:35)
[2021-04-22 22:41] LABS: Bedside Glucose 305 mg/dL (70-110)
--- NOTE | 2021-04-22 23:02 | PCM.HOSP.N ---
Hospitalist Note Notified by Varsha AGOSTO patient continues to have heart rates in the 120s to 130s. Patient was unable to be given any IV medications due to lack of IV access. Patient now has midline placed. Cardizem bolus x1 ordered. Patient also receiving metoprolol p.o. Discussed with Dr. Wild who is in agreement with plan of care.
[2021-04-22 23:04] LABS: Partial Thromboplast Time 28.1 Seconds (24.1-36.2)
[2021-04-22] MEDS: dilTIAZem 25 MG/5 ML Vial 20 MG IV BOLUS (23:51)
[2021-04-23] VITALS (27 sets, daily range): BP systolic 112–142; BP diastolic 68–110; PULSE 69–137; RESP 12–29; TEMP 36.6–36.9; O2SAT 87–96
[2021-04-23] MEDS: Heparin Injection (Vial) 5,000 UNIT/ML VIAL IV (00:08)
--- NOTE | 2021-04-23 00:11 | NURSING ---
cardizem given slow push, after giving 10 mg of the ordered 20 mg dose the pts hr dropped to 84, the remaining 10 mg held.
[2021-04-23 06:33] LABS: Absolute Lymphocyte Count 0.73 X10^3/uL (0.83-4.51); Absolute Neutrophil Count 7.1 X10^3/uL (2.0-7.7); Basophil# 0.01 X10^3/uL; Basophil% 0.1 % (0-1); Hemoglobin 11.6 g/dL (13.0-16.5); Lymphocyte # 0.73 X10^3/ul (0.83-4.51); Lymphocyte % 8.5 % (19-41); Mean Corp Hgb Conc 32.2 g/dL (32-36); Mean Corpuscular Volume 86.7 fL (80-94); Mean Platelet Vol. 9.7 fl (6.2-12.0); Monocyte# 0.53 X10^3/uL; Monocyte% 6.2 % (0-10); NRBC Flagged by Analyzer 0 % (0-5); Neutrophil # 7.12 X10^3/uL (2.7-7.7); Platelet Count 246 K/mm3 (150-450); RBC Distribution Width CV 14.6 % (11.6-14.6); RBC Distribution Width SD 47.1 fl (35.1-43.9); Red Blood Count 4.15 M/mm3 (4.6-6.2); White Blood Count 8.6 K/mm3 (4.4-11.0)
[2021-04-23 06:48] LABS: Partial Thromboplast Time 114.7 Seconds (24.1-36.2)
[2021-04-23 07:21] LABS: ALB/GLOB Ratio 0.5 RATIO (0.9-2.4); AST(SGOT) 135 U/L (15-37); Alanine Aminotransfer ALT/SGPT 123 U/L (16-61); Albumin, Serum 2.5 g/dL (3.2-5.0); Alkaline Phosphatase 83 U/L (45-117); Anion Gap 8 (5-15); BUN 50 mg/dL (7-18); Calcium,Total 7.9 mg/dL (8.5-10.1); Chloride 106 mmol/L (98-107); Creatinine, Serum 1.92 mg/dL (0.70-1.30); EST Glomerular Filtration Rate 37 mL/min (>60); Est Glom Filt Rate - Afr Amer 45 mL/min (>60); Estimated Creatinine Clearance 36.44 ml/min; Globulin 4.6 g/dL (2.2-4.2); Glucose 283 mg/dL (74-106); Magnesium 2.3 mg/dL (1.6-2.6); Potassium 4.6 mmol/L (3.5-5.1); Protein, Total 7.1 g/dL (6.4-8.2); Sodium Level 138 mmol/L (136-145)
[2021-04-23] MEDS: Insulin Lispro 100 UNIT/ML INSULN.PEN SC ×4 (07:22→21:39)
[2021-04-23] MEDS: Acetaminophen 325 MG Tablet 650 MG PO (07:24)
[2021-04-23] MEDS: guaiFENesin 10 ML UDC (200MG/10ML) 20 ML PO (07:24)
[2021-04-23 07:40] LABS: Bedside Glucose 260 mg/dL (70-110)
--- NOTE | 2021-04-23 07:57 | PN.HOSP_ITS ---
Subjective Subjective Patient seen still requiring high flow oxygen currently at 15 L and saturating in the high 80s. Did encourage the patient on the use of incentive spirometry and flutter valve Objective Data Objective Data Vital Signs: Vital Signs Temp Pulse Resp BP Pulse Ox 98.3 F 83 17 112/70 90 04/23/21 06:00 04/23/21 06:00 04/23/21 06:00 04/23/21 06:00 04/23/21 06:00 Oxygen Flow Rate (L/min) 15 Oxygen Delivery Method Nasal Cannula Weight: 133 kg Body Mass Index (BMI) 41.9 Intake & Output: Intake and Output for Last 24 Hours 04/21/21 04/22/21 04/23/21 23:59 23:59 23:59 Intake Total 864.73 / 864.73 3105.43 / 3105.43 97.93 / 97.93 Balance 864.73 / 864.73 3105.43 / 3105.43 97.93 / 97.93 Lab / Micro Data Result Diagrams: 04/23/21 06:00 04/23/21 06:00 Labs: Laboratory Results - last 24 hr 04/22/21 06:58: WBC 4.5, RBC 4.35 L, Hgb 12.1 L, Hct 39.8 L, MCV 91.5, MCH 27.8, MCHC 30.4 L D, RDW Std Deviation 49.7 H, RDW Coeff of Damion 14.7 H, Plt Count 184, MPV 9.6, Immature Gran % (Auto) 2.000 H, Neut % (Auto) 72.0 H, Lymph % (Auto) 17.9 L, [place] % (Auto) 7.4, Eos % (Auto) 0.0, Baso % (Auto) 0.7, Absolute Neuts (auto) 3.2, Absolute Lymphs (auto) 0.80 L, Nucleated RBC % 0, Platelet Estimate ADEQUATE, Hypochromasia RARE 04/22/21 06:58: Sodium 134 L, Potassium 5.7 H, Chloride 108 H, Carbon Dioxide 20.0 L, Anion Gap 6, BUN 52 H, Creatinine 2.03 H, Estim Creat Clear Calc 34.46, Est GFR (MDRD) Af Amer 42 L, Est GFR (MDRD) Non-Af 35 L, BUN/Creatinine Ratio 25.6 H, Glucose 235 H, Calcium 8.0 L, Total Bilirubin 0.40, AST 127 H, ALT 89 H, Alkaline Phosphatase 72, Total Protein 7.4, Albumin 2.5 L, Globulin 4.9 H, Albumin/Globulin Ratio 0.5 L, Triglycerides 104, Cholesterol 96, LDL Cholesterol 26, VLDL Cholesterol 21, HDL Cholesterol 49, TSH 0.66 04/22/21 06:58: APTT 198.9 H* 04/22/21 11:34: POC Glucose 267 H 04/22/21 17:06: POC Glucose 295 H 04/22/21 20:25: Sodium 137, Potassium 5.2 H, Chloride 107, Carbon Dioxide 20.0 L , Anion Gap 10, BUN 52 H, Creatinine 2.00 H, Estim Creat Clear Calc 34.98, Est GFR (MDRD) Af Amer 43 L, Est GFR (MDRD) Non-Af 35 L, BUN/Creatinine Ratio 26.0 H , Glucose 344 H, Calcium 7.9 L 04/22/21 22:16: POC Glucose 305 H 04/22/21 22:30: APTT 28.1 04/23/21 06:00: WBC 8.6, RBC 4.15 L, Hgb 11.6 L, Hct 36.0 L, MCV 86.7 D, MCH 28.0, MCHC 32.2 D, RDW Std Deviation 47.1 H, RDW Coeff of Damion 14.6, Plt Count 246, MPV 9.7, Immature Gran % (Auto) 2.200 H, Neut % (Auto) 83.0 H, Lymph % (Auto) 8.5 L, [place] % (Auto) 6.2, Eos % (Auto) 0.0, Baso % (Auto) 0.1, Absolute Neuts (auto) 7.1, Absolute Lymphs (auto) 0.73 L, Nucleated RBC % 0 04/23/21 06:00: Sodium 138, Potassium 4.6, Chloride 106, Carbon Dioxide 24.0, Anion Gap 8, BUN 50 H, Creatinine 1.92 H, Estim Creat Clear Calc 36.44, Est GFR (MDRD) Af Amer 45 L, Est GFR (MDRD) Non-Af 37 L, BUN/Creatinine Ratio 26.0 H, Glucose 283 H, Calcium 7.9 L, Magnesium 2.3, Total Bilirubin 0.30, AST 135 H, ALT 123 H, Alkaline Phosphatase 83, Total Protein 7.1, Albumin 2.5 L, Globulin 4.6 H, Albumin/Globulin Ratio 0.5 L 04/23/21 06:00: APTT 114.7 H* 04/23/21 07:21: POC Glucose 260 H Micro: Microbiology 04/21/21 16:35 Sputum, Expectorated/Coughed Gram Stain - Final 04/21/21 19:51 Mucosa - Nasopharyngeal Respiratory Panel (PCR) - Final 04/21/21 19:05 Urine, Clean Catch Legionella Antigen - Final Radiography Diagnostic Testing: Radiology Impression Echocardiogram 04/21/21 17:32 Interpretation Summary Normal LV size. Left ventricular systolic function is normal. The estimated ejection fraction is 55 %. Structurally normal valves. _ Ordering Physician: Viridiana Gilbert Referring Physician: Krissy Jean Baptiste Performed By: Chelsie Carmichael RDCS Rhythm Strip Rhythm Strip: A-fib Rate: 130 Ectopy: None Physical Exam Narrative GENERAL: cooperative but appears ill looking HEENT: Atraumatic; EYES; Anicteric, Normal Conjunctiva NECK; supple, normal thyroid, RESPIRATORY: Diminished to auscultation CARDIOVASCULAR: Regular S1 S2, GI: soft, normoactive bowel sounds, : No Renal angle tenderness; EXTREMITIES: No edema, no clubbing, MUSCULOSKELETAL: no muscle waisting NEURO: Awake; no lateralizing signs. SKIN: No Rash PSYCH; Flat affect Assessment & Plan Assessment/Plan (1) Pneumonia due to COVID-19 virus: (2) Hypoxia: PLAN: Patient is a 71-year-old gentleman with multiple comorbidities unvaccinated against COVID-19 who presented with progressive shortness of breath. Patient symptoms started almost a week prior to his admission. His Covid diagnosis was on 04/20/2021. He did receive monoclonal antibody therapy as outpatient however due to progressive and worsening symptoms he presented to the emergency department 1. Acute hypoxic respiratory failure ?Secondary to SARS-CoV-2 pneumonia checks x-ray obtained on admission demonstrated bibasilar infiltrate consistent with COVID-19 pneumonia. Patient admitted to monitored bed started on supplemental oxygen in addition to Decadron. Patient was not started on remdesivir due to his impaired kidney function -04/23/2021 Patient seen still requiring high flow oxygen currently at 15 L and saturating in the high 80s. Did encourage the patient on the use of incentive spirometry and flutter valve 2. Hyperkalemia ?Secondary to impaired kidney function. An order was given for Kayexalate repeat potassium ordered 3. Dyslipidemia -Patient is on statin therapy, continued at home dose 4. Morbid obesity with BMI of 42.1 ?Weight loss advised 5. Diabetes mellitus type 2 ?Held patient oral hypoglycemic agent placed on long-acting insulin in addition to Accu-Cheks before meals and at bedtime with sliding scale coverage 6. Essential hypertension ?Patient is on lisinopril held in view of his impaired kidney function 7. GERD ?On PPI 8. New onset A. fib/flutter ?Rate currently controlled 9. Obstructive sleep apnea ?Patient is on CPAP at night 10. DVT prophylaxis ?Patient is on heparin Charges/Coding Visit Charges Inpatient E&M: 19638 [facility] Hosp L3
[2021-04-23] MEDS: 0.9% Saline Lock 10 ML Syringe IV (08:05)
[2021-04-23] MEDS: Loratadine 10 MG Tablet PO (08:06)
[2021-04-23] MEDS: Aspirin 81 MG TAB.CHEW PO (08:06)
[2021-04-23] MEDS: Pantoprazole Sodium 20 MG Tablet PO (08:06)
[2021-04-23] MEDS: Metoprolol Tartrate 25 MG Tablet PO ×2 (08:06→19:49)
[2021-04-23] MEDS: Atorvastatin Calcium 20 MG Tablet PO (08:06)
[2021-04-23] MEDS: dexAMETHasone 4 MG/ML Vial 6 MG IV (08:07)
[2021-04-23] MEDS: Menthol/Lanolin/Calamine/Znox 113 GM Tube 1 APPLIC TOPICAL ×2 (10:39→19:53)
[2021-04-23 11:50] LABS: Bedside Glucose 321 mg/dL (70-110)
[2021-04-23 17:00] LABS: Bedside Glucose 367 mg/dL (70-110)
[2021-04-23 18:48] LABS: Partial Thromboplast Time 69.3 Seconds (24.1-36.2)
[2021-04-23 21:50] LABS: Bedside Glucose 338 mg/dL (70-110)
[2021-04-24] VITALS (33 sets, daily range): BP systolic 132–165; BP diastolic 71–100; PULSE 76–135; RESP 14–36; TEMP 36.4–36.9; O2SAT 88–96
[2021-04-24 02:20] LABS: Partial Thromboplast Time 80.6 Seconds (24.1-36.2)
[2021-04-24] MEDS: HEPARIN/D5w 25,000 UNITS 25,000 UNITS/250 ML IV.SOLN. 9 UNITS IV (02:27)
[2021-04-24] MEDS: Insulin Lispro 100 UNIT/ML INSULN.PEN SC ×4 (06:55→19:48)
[2021-04-24 07:06] LABS: Bedside Glucose 286 mg/dL (70-110)
--- NOTE | 2021-04-24 07:41 | PCM.PN.HOSP ---
Subjective Subjective Patient oxygen requirements increased respiratory status deteriorated resulting in patient being placed on noninvasive ventilation BiPAP. Still remains significantly tachypneic at rest. Decision was made to transfer patient to the intensive care unit. Also remains in A. fib with RVR Objective Data Objective Data Vital Signs: Vital Signs Temp Pulse Resp BP Pulse Ox 97.6 F L 128 H 21 H 139/100 H 94 04/24/21 05:18 04/24/21 05:21 04/24/21 05:21 04/24/21 05:18 04/24/21 05:21 Oxygen Flow Rate (L/min) 15 Oxygen Delivery Method Bi-pap Weight: 130.1 kg Body Mass Index (BMI) 41.9 Intake & Output: Intake and Output for Last 24 Hours 04/22/21 04/23/21 04/24/21 23:59 23:59 23:59 Intake Total 3105.43 / 3105.43 937.93 / 937.93 152.07 / 152.07 Output Total 775 / 775 Balance 3105.43 / 3105.43 937.93 / 637.93 -622.93 / -622.93 Lab / Micro Data Result Diagrams: 04/24/21 09:03 04/24/21 09:03 Labs: Laboratory Results - last 24 hr 04/23/21 11:41: POC Glucose 321 H 04/23/21 16:42: POC Glucose 367 H 04/23/21 18:30: APTT 69.3 H 04/23/21 21:38: POC Glucose 338 H 04/24/21 01:10: APTT 80.6 H 04/24/21 06:53: POC Glucose 286 H Micro: Microbiology 04/21/21 16:35 Sputum, Expectorated/Coughed Gram Stain - Final 04/21/21 16:35 Sputum, Expectorated/Coughed Respiratory Culture - Preliminary Appears to be normal respiratory kae. Further studies to follow. 04/21/21 19:51 Mucosa - Nasopharyngeal Respiratory Panel (PCR) - Final 04/21/21 19:05 Urine, Clean Catch Legionella Antigen - Final Rhythm Strip Rhythm Strip: A-fib Rate: 130 Ectopy: None Physical Exam Narrative GENERAL: cooperative but appears ill looking HEENT: Atraumatic; EYES; Anicteric, Normal Conjunctiva NECK; supple, normal thyroid, RESPIRATORY: Diminished to auscultation CARDIOVASCULAR: Regular S1 S2, GI: soft, normoactive bowel sounds, : No Renal angle tenderness; EXTREMITIES: No edema, no clubbing, MUSCULOSKELETAL: no muscle waisting NEURO: Awake; no lateralizing signs. SKIN: No Rash PSYCH; Flat affect Assessment & Plan Assessment/Plan (1) Pneumonia due to COVID-19 virus: (2) Hypoxia: PLAN: Patient is a 71-year-old gentleman with multiple comorbidities unvaccinated against COVID-19 who presented with progressive shortness of breath. Patient symptoms started almost a week prior to his admission. His Covid diagnosis was on 04/20/2021. He did receive monoclonal antibody therapy as outpatient however due to progressive and worsening symptoms he presented to the emergency department 1. Acute hypoxic respiratory failure ?Secondary to SARS-CoV-2 pneumonia checks x-ray obtained on admission demonstrated bibasilar infiltrate consistent with COVID-19 pneumonia. Patient admitted to monitored bed started on supplemental oxygen in addition to Decadron. Patient was not started on remdesivir due to his impaired kidney function -04/23/2021 Patient seen still requiring high flow oxygen currently at 15 L and saturating in the high 80s. Did encourage the patient on the use of incentive spirometry and flutter valve -04/24/2021;Patient oxygen requirements increased respiratory status deteriorated resulting in patient being placed on noninvasive ventilation BiPAP. Still remains significantly tachypneic at rest. Decision was made to transfer patient to the intensive care unit. 2. Hyperkalemia ?Secondary to impaired kidney function. An order was given for Kayexalate repeat potassium ordered -04/24/2021; potassium down to 4.9 3. Dyslipidemia -Patient is on statin therapy, continued at home dose 4. Morbid obesity with BMI of 42.1 ?Weight loss advised 5. Diabetes mellitus type 2 ?Held patient oral hypoglycemic agent placed on long-acting insulin in addition to Accu-Cheks before meals and at bedtime with sliding scale coverage 6. Essential hypertension ?Patient is on lisinopril held in view of his impaired kidney function 7. GERD ?On PPI 8. New onset A. fib/flutter ?Rate currently controlled -04/24/2021; patient rates has remained labile. Remains on systemic anticoagulation with heparin 9. Obstructive sleep apnea ?Patient is on CPAP at night 10. DVT prophylaxis ?Patient is on heparin 11. Acute kidney injury superimposed on chronic kidney disease stage III 8 ?04/24/2021; Baseline creatinine was 1.33 as of 08/06/2019. Creatinine on admission was 2.86. Was rehydrated creatinine down to 1.49 Charges/Coding Visit Charges Inpatient E&M: 37178 [facility] Hosp L3
[2021-04-24] MEDS: 0.9% Saline Lock 10 ML Syringe IV (08:21)
[2021-04-24] MEDS: Pantoprazole Sodium 20 MG Tablet PO (08:22)
[2021-04-24] MEDS: Metoprolol Tartrate 25 MG Tablet PO ×2 (08:22→19:47)
[2021-04-24] MEDS: Aspirin 81 MG TAB.CHEW PO (08:23)
[2021-04-24] MEDS: Atorvastatin Calcium 20 MG Tablet PO (08:23)
[2021-04-24] MEDS: Loratadine 10 MG Tablet PO (08:23)
[2021-04-24] MEDS: dexAMETHasone 4 MG/ML Vial 6 MG IV (08:24)
[2021-04-24] MEDS: Menthol/Lanolin/Calamine/Znox 113 GM Tube 1 APPLIC TOPICAL ×2 (08:24→19:53)
[2021-04-24 09:16] LABS: Hematocrit 39.3 % (40-54); Hemoglobin 12.8 g/dL (13.0-16.5); Mean Corp Hgb Conc 32.6 g/dL (32-36); Mean Corpuscular Hgb 27.7 pg (27.0-32.0); Mean Corpuscular Volume 85.1 fL (80-94); Mean Platelet Vol. 9.4 fl (6.2-12.0); POSITIVE COUNT YES; POSITIVE MORPHOLOGY YES; Platelet Count 262 K/mm3 (150-450); RBC Distribution Width CV 14.6 % (11.6-14.6); RBC Distribution Width SD 44.7 fl (35.1-43.9); Red Blood Count 4.62 M/mm3 (4.6-6.2); White Blood Count 11.1 K/mm3 (4.4-11.0)
[2021-04-24 09:18] LABS: Differential Indicated MANUAL DIFF
[2021-04-24 09:27] LABS: Partial Thromboplast Time 57.6 Seconds (24.1-36.2)
[2021-04-24 09:54] LABS: ALB/GLOB Ratio 0.7 RATIO (0.9-2.4); AST(SGOT) 142 U/L (15-37); Alanine Aminotransfer ALT/SGPT 136 U/L (16-61); Albumin, Serum 2.8 g/dL (3.2-5.0); Alkaline Phosphatase 104 U/L (45-117); Anion Gap 8 (5-15); BUN 41 mg/dL (7-18); BUN/Creat Ratio 27.5 RATIO (10-20); Calcium,Total 8.1 mg/dL (8.5-10.1); Chloride 107 mmol/L (98-107); Creatinine, Serum 1.49 mg/dL (0.70-1.30); EST Glomerular Filtration Rate 49 mL/min (>60); Est Glom Filt Rate - Afr Amer 60 mL/min (>60); Estimated Creatinine Clearance 46.95 ml/min; Globulin 4.3 g/dL (2.2-4.2); Glucose 282 mg/dL (74-106); Potassium 4.9 mmol/L (3.5-5.1); Protein, Total 7.1 g/dL (6.4-8.2); Sodium Level 139 mmol/L (136-145)
[2021-04-24 10:04] LABS: Lymphocyte 5 % (19-41); Metamyelocyte 2 % (0-1); Monocyte 2 % (0-10); Neutrophil-Band 5 % (0-5); Neutrophil-Segmented 86 % (47-70); Nucleated Red Bld Cells,Manual 1 % (0-5); Platelet Estimate ADEQUATE (ADEQ); Red Cell Morphology NORM C+C NORMAL (NORM C&C); Total Cells Counted 100 (MANUAL DIFF)
[2021-04-24 10:05] LABS: Absolute Lymphocyte Count 0.55 X10^3/uL (0.83-4.51); Absolute Neutrophil Count 10.1 X10^3/uL (2.0-7.7); Lymphocyte # 0.55 X10^3/ul (0.83-4.51)
--- NOTE | 2021-04-24 13:17 | NURSING ---
mill operator helper called at this time for PICC placement
--- NOTE | 2021-04-24 13:50 | EX.PCM.CONCC ---
Assessment & Plan Assessment/Plan (1) Hypoxia: (2) Pneumonia due to COVID-19 virus: PLAN: RECOMMENDATIONS: 1. Continue BiPAP and wean FiO2 to maintain saturations at or above 90%. 2. Continue Decadron to complete 10-day treatment course. 3. Start empiric antimicrobials, while awaiting sputum culture results. Check strep antigen. 4. Patient to remain n.p.o. for now. 5. Continue heparin infusion for now. 6. Infectious diseases consultation is pending. IMPRESSIONS: 1. Acute hypoxemic respiratory failure secondary to COVID-19 pneumonia The patient has had worsening in his oxygenation status following admission to the hospital on April 21. The patient ultimately had to be transferred to the medical intensive care unit on April 24 and is currently requiring BiPAP with an FiO2 requirement of 100%. The patient was deemed to be outside of the window for remdesivir. He has been initiated on Decadron. The patient did have a mildly elevated D-dimer. However, CTA chest was unable to be completed. Therefore, the patient was started on a continuous heparin infusion, which will be continued. While awaiting sputum culture results, will place the patient empirically on antimicrobials. Infectious diseases consultation is pending as well. Underlying renal dysfunction would preclude the use of diuretics at this time. Patient will be continued on BiPAP for now. FiO2 will be weaned for saturations greater than 90%. The patient is at high risk for the need for intubation in the next 24 hours. 2. Paroxysmal atrial flutter Echocardiogram was unremarkable. Continue current medical management. 3. Acute on chronic kidney disease Likely prerenal in etiology and related to acute presentation. Creatinine is slowly improving. We will continue to monitor urine output. No current indication for renal replacement therapy. 4. Morbid obesity/history of FARSHAD/diabetes mellitus/hypertension/hyperlipidemia Complicates care, management, recovery and prognosis. Continue home medications as indicated. TIME: 37 minutes of critical care time, independent of procedures, was spent addressing the patient's acute hypoxemic respiratory failure secondary to COVID-19 pneumonia, paroxysmal atrial flutter, acute on chronic kidney disease, review of all data and collaboration with the care team. ([id number]) HPI Consult Data Date of Consult: 04/24/21 HPI Narrative Reason for Consultation: Acute hypoxemic respiratory failure secondary to COVID-19 pneumonia HPI Narrative: The patient is a 71-year-old male, with a history as outlined below, who presented to the emergency department on April 21 with shortness of breath and hypoxemia. The patient has been referred for monoclonal antibody infusion. However, upon arrival to receive the therapy, the patient was noted to be hypoxemic, saturating 88% on room air. The patient's is also ill with coronavirus as well. The patient is unvaccinated. On presentation to the emergency department, the patient was noted to be febrile and tachypneic. Initial laboratory evaluation revealed no evidence of a leukocytosis. Coagulation profile revealed a D-dimer of 1.34. Lactate was elevated at 3.1. Chemistry profile was notable for a sodium of 134, potassium of 5.7, bicarbonate of 20 and creatinine of 2.03. Chest x-ray demonstrated bilateral pulmonary infiltrates. The patient was started on a heparin drip and Decadron. The patient was subsequently admitted to the hospital for further management. Over the course of his hospitalization, the patient's oxygenation status has worsened precipitously. Ultimately, the patient required transfer to the medical intensive care unit on April 24 after he was initiated on continuous BiPAP support with an FiO2 requirement of 100%. [facility] Medical History (Updated 04/21/21 @ 19:[address] Viridiana Gilbert MD) Diabetes High cholesterol History of prostate cancer Hypertension Morbid obesity FARSHAD (obstructive sleep apnea) Home Medications aspirin 81 mg chewable tablet 81 mg PO DAILY 04/20/21 [History Last Taken 04/21/21] atorvastatin 20 mg tablet 20 mg PO DAILY 04/20/21 [History Last Taken 04/21/21] calcium carbonate 600 mg(1,500 mg)-vitamin D3 800 unit chewable tablet 1 tab PO DAILY 04/20/21 [History Last Taken 04/20/21] glimepiride 4 mg tablet 4 mg PO BID 04/20/21 [History Last Taken 04/21/21] lisinopril 40 mg tablet 40 mg PO DAILY 04/20/21 [History Last Taken 04/20/21] loratadine 10 mg tablet 10 mg PO DAILY 04/20/21 [History Last Taken 04/20/21] xurtszwn-wjn-kyqri acid 300 mcg-lycopene 600 mcg-lutein 300 mcg tablet 1 tab PO DAILY 04/20/21 [History Last Taken 04/21/21] pantoprazole 20 mg tablet,delayed release 20 mg PO DAILY 04/20/21 [History Last Taken 04/20/21] pioglitazone 45 mg tablet 45 mg PO DAILY 04/20/21 [History Last Taken 04/21/21] metformin 1,000 mg PO BID 04/21/21 [History Last Taken 04/21/21] Allergy/AdvReac Type Severity Reaction Status Date / Time No Known Allergies Allergy Unverified 04/20/21 13:19 Family History (Updated 04/21/21 @ 19:[address] Viridiana Gilbert MD) Mother CVA (cerebral vascular accident) Diabetes Heart disease Father CVA (cerebral vascular accident) Diabetes Heart disease Surgical History (Updated 04/21/21 @ 19:[address] Viridiana Gilbert MD) S/P cholecystectomy S/P parathyroidectomy S/P prostatectomy Social History (Updated 04/21/21 @ 19:[address] Viridiana Gilbert MD) household members: none Smoking Status: Never smoker alcohol intake: never substance use type: does not use ROS Constitutional Constitutional: Reports fatigue, fever(s), malaise and weakness Eyes Eyes: Denies blurry vision or change in vision ENT HEENT: Denies dizziness, dysphagia or nasal congestion Cardiovascular Cardiovascular: Reports dyspnea; Denies chest pain Respiratory/Chest Respiratory/Chest: Reports cough and dyspnea Gastrointestinal Gastrointestinal: Reports abdominal pain Genitourinary Genitourinary: Denies difficulty urinating or dysuria Musculoskeletal Musculoskeletal: Reports myalgias; Denies arthralgias Integumentary Integumentary: Denies lesions, rash or skin ulcer Neurologic Neurologic: Denies abnormal gait or abnormal speech Psychiatric Psychiatric: Denies anxiety or depression Endocrine Endocrinology: Reports fatigue Hematologic/Lymphatic Hematologic/Lymphatic: Denies easy bleeding or easy bruising Physical Exam Const alert General Appearance: cooperative, ill appearing and on BiPAP Nutritional Appearance: morbidly obese HEENT normocephalic and head/scalp atraumatic Eyes PERRL, EOMs intact bilaterally and conjunctivae normal Neck supple General: trachea midline Chest inspection of chest normal Resp Effort and Inspection: tachypneic Auscultation: diminished lung sounds; Negative for rales, rhonchi or wheezes Cardio S1 normal heart sound and S2 normal heart sound Cardio Narrative: IRIR Rate: tachycardic GI normal to inspection, nondistended, normoactive bowel sounds Extremity no clubbing, cyanosis or edema Skin no rashes or lesions noted Neuro CN's II-XII intact bilaterally, moves all extremities and no focal motor deficits Psych cooperative and affect normal Lab / Micro Data Result Diagrams: 04/24/21 09:03 04/24/21 09:03 Labs: Laboratory Results - last 24 hr 04/23/21 16:42: POC Glucose 367 H 04/23/21 18:30: APTT 69.3 H 04/23/21 21:38: POC Glucose 338 H 04/24/21 01:10: APTT 80.6 H 04/24/21 06:53: POC Glucose 286 H 04/24/21 09:03: WBC 11.1 H, RBC 4.62, Hgb 12.8 L, Hct 39.3 L, MCV 85.1, MCH 27.7, MCHC 32.6, RDW Std Deviation 44.7 H, RDW Coeff of Damion 14.6, Plt Count 262, MPV 9.4, Neut % (Auto) Not Reportable, Absolute Neuts (auto) 10.1 H, Absolute Lymphs (auto) 0.55 L, Total Counted 100, Neutrophils % (Manual) 86 H, Band Neutrophils % 5, Lymphocytes % (Manual) 5 L, Monocytes % (Manual) 2, Metamyelocytes % 2 H, Nucleated RBCs/100 WBC 1, Diff Path Review November, Platelet Estimate ADEQUATE, RBC Morphology NORM C+C 04/24/21 09:03: Sodium 139, Potassium 4.9, Chloride 107, Carbon Dioxide 24.0, Anion Gap 8, BUN 41 H, Creatinine 1.49 H, Estim Creat Clear Calc 46.95, Est GFR (MDRD) Af Amer 60, Est GFR (MDRD) Non-Af 49 L, BUN/Creatinine Ratio 27.5 H, Glucose 282 H, Calcium 8.1 L, Total Bilirubin 0.60, AST 142 H, ALT 136 H, Alkaline Phosphatase 104, Total Protein 7.1, Albumin 2.8 L, Globulin 4.3 H, Albumin/Globulin Ratio 0.7 L 04/24/21 09:03: APTT 57.6 H Micro: Microbiology 04/21/21 16:35 Sputum, Expectorated/Coughed Gram Stain - Final 04/21/21 16:35 Sputum, Expectorated/Coughed Respiratory Culture - Final Rhythm Strip Rhythm Strip: A-fib Rate: 130 Ectopy: None Charges/Coding Procedures Hospitalists Procedures: [id number] Critial Care 1st Hr
--- NOTE | 2021-04-24 14:14 | CASEMGMT ---
Pt's had asked RN about POA for healthcare. Pt is currently on bipapp so SW cannot complete POA papers w/pt at this time. SW called to explain this, message left to call SW. FAUSTO Triplett
[2021-04-24 14:26] LABS: Bedside Glucose 302 mg/dL (70-110)
--- NOTE | 2021-04-24 16:01 | PCM.CONS.GEN ---
Assessment & Plan Assessment/Plan (1) Pneumonia due to COVID-19 virus: PLAN: Sx started 04/14. Unvaccinated. Got monoclonal Ab 04/22. Recommend isolation for 20 days from 04/14. Recommend vaccine once out of iso. On dex. Reviewed EUA and risk/benefit baricitinib with him and his family, will start. PIPE improved. Will follow, thank you (2) Hypoxia: HPI Consult Data Date of Consult: 04/24/21 HPI Narrative HPI Narrative: IRISH NICOLAS, is a 71 M who presented with sx starting 04/14/21. Unvaccinated. C/o headache, cough, aches, dyspnea, diarrhea. No change in taste/smell. also sick, recovering. Both got monoclonal Abs on 04/22. Came to ED, now on dex, hep gtt, in icu on 100% bipap. Feeling a little better. Full ROS performed and neg except as noted above. [facility] Medical History Diabetes High cholesterol History of prostate cancer Hypertension Morbid obesity FARSHAD (obstructive sleep apnea) Home Medications aspirin 81 mg chewable tablet 81 mg PO DAILY 04/20/21 [History Last Taken 04/21/21] atorvastatin 20 mg tablet 20 mg PO DAILY 04/20/21 [History Last Taken 04/21/21] calcium carbonate 600 mg(1,500 mg)-vitamin D3 800 unit chewable tablet 1 tab PO DAILY 04/20/21 [History Last Taken 04/20/21] glimepiride 4 mg tablet 4 mg PO BID 04/20/21 [History Last Taken 04/21/21] lisinopril 40 mg tablet 40 mg PO DAILY 04/20/21 [History Last Taken 04/20/21] loratadine 10 mg tablet 10 mg PO DAILY 04/20/21 [History Last Taken 04/20/21] ufxmwxni-dgq-wauyt acid 300 mcg-lycopene 600 mcg-lutein 300 mcg tablet 1 tab PO DAILY 04/20/21 [History Last Taken 04/21/21] pantoprazole 20 mg tablet,delayed release 20 mg PO DAILY 04/20/21 [History Last Taken 04/20/21] pioglitazone 45 mg tablet 45 mg PO DAILY 04/20/21 [History Last Taken 04/21/21] metformin 1,000 mg PO BID 04/21/21 [History Last Taken 04/21/21] Allergy/AdvReac Type Severity Reaction Status Date / Time No Known Allergies Allergy Unverified 04/20/21 13:19 Family History (Updated 04/21/21 @ 19:[address] Viridiana Gilbert MD) Mother CVA (cerebral vascular accident) Diabetes Heart disease Father CVA (cerebral vascular accident) Diabetes Heart disease Surgical History (Updated 04/21/21 @ 19:[address] Viridiana Gilbert MD) S/P cholecystectomy S/P parathyroidectomy S/P prostatectomy Social History (Updated 04/21/21 @ 19:[address] Viridiana Gilbert MD) household members: none Smoking Status: Never smoker alcohol intake: never substance use type: does not use Physical Exam Const alert General Appearance: cooperative Exam Limitations: no limitations HEENT normocephalic and head/scalp atraumatic Eyes PERRL and EOMs intact bilaterally Neck supple and No nodes Resp Auscultation: diminished lung sounds Cardio regular rate and regular rhythm GI normal to inspection, nondistended, normoactive bowel sounds Extremity no clubbing, cyanosis or edema Skin no rashes or lesions noted Neuro CN's II-XII intact bilaterally Lab / Micro Data Result Diagrams: 04/24/21 09:03 04/24/21 09:03 Labs: Laboratory Results - last 24 hr 04/23/21 16:42: POC Glucose 367 H 04/23/21 18:30: APTT 69.3 H 04/23/21 21:38: POC Glucose 338 H 04/24/21 01:10: APTT 80.6 H 04/24/21 06:53: POC Glucose 286 H 04/24/21 09:03: WBC 11.1 H, RBC 4.62, Hgb 12.8 L, Hct 39.3 L, MCV 85.1, MCH 27.7, MCHC 32.6, RDW Std Deviation 44.7 H, RDW Coeff of Damion 14.6, Plt Count 262, MPV 9.4, Neut % (Auto) Not Reportable, Absolute Neuts (auto) 10.1 H, Absolute Lymphs (auto) 0.55 L, Total Counted 100, Neutrophils % (Manual) 86 H, Band Neutrophils % 5, Lymphocytes % (Manual) 5 L, Monocytes % (Manual) 2, Metamyelocytes % 2 H, Nucleated RBCs/100 WBC 1, Diff Path Review May foll, Platelet Estimate ADEQUATE, RBC Morphology NORM C+C 04/24/21 09:03: Sodium 139, Potassium 4.9, Chloride 107, Carbon Dioxide 24.0, Anion Gap 8, BUN 41 H, Creatinine 1.49 H, Estim Creat Clear Calc 46.95, Est GFR (MDRD) Af Amer 60, Est GFR (MDRD) Non-Af 49 L, BUN/Creatinine Ratio 27.5 H, Glucose 282 H, Calcium 8.1 L, Total Bilirubin 0.60, AST 142 H, ALT 136 H, Alkaline Phosphatase 104, Total Protein 7.1, Albumin 2.8 L, Globulin 4.3 H, Albumin/Globulin Ratio 0.7 L 04/24/21 09:03: APTT 57.6 H 04/24/21 12:21: POC Glucose 302 H Micro: Microbiology 04/21/21 16:35 Sputum, Expectorated/Coughed Gram Stain - Final 04/21/21 16:35 Sputum, Expectorated/Coughed Respiratory Culture - Final Rhythm Strip Rhythm Strip: A-fib Rate: 130 Ectopy: None
[2021-04-24 16:34] LABS: M R Staph aureus DNA By PCR Negative (Negative); Probe Check PASS; Specimen Processing Control PASS
[2021-04-24 17:35] LABS: Partial Thromboplast Time 57.7 Seconds (24.1-36.2)
--- NOTE | 2021-04-24 22:45 | RAD_ITS ---
EXAM: XR Chest, 1 View CLINICAL INDICATION: 71 years old, Male; PICC placement TECHNIQUE: Frontal view of the chest. This report was created using Divided report generation technology. COMPARISON: None. FINDINGS: Lungs and pleural spaces: Stable infiltrates in the mid and lower lungs. No pneumothorax. No effusion. Heart: Unremarkable. Cardiac silhouette not enlarged. Mediastinum: Central airways and mediastinal contour are unremarkable. Bones/joints: Unremarkable. Soft tissues: Unremarkable. Tubes, lines and devices: Right peripherally inserted central catheter (PICC) tip in the upper superior vena cava. RAD/CXR for Line Placement IMPRESSION: 1. Right peripherally inserted central catheter (PICC) tip in the upper superior vena cava. 2. Stable infiltrates in the mid and lower lungs. ASSESSMENT: ABNORMAL report - There are abnormal findings in this report which may be related or unrelated to the reason for the exam. Electronically Signed: Gaurav Falcon MD at 23:20 EDT Tel , Service support ,
[2021-04-24 23:26] LABS: Bedside Glucose 303 mg/dL (70-110)
[2021-04-24 23:26] LABS: Bedside Glucose 317 mg/dL (70-110)
[2021-04-25] VITALS (43 sets, daily range): BP systolic 114–160; BP diastolic 69–114; PULSE 83–139; RESP 11–35; TEMP 35.8–36.9; O2SAT 88–99
[2021-04-25 04:38] LABS: ALB/GLOB Ratio 0.5 RATIO (0.9-2.4); AST(SGOT) 100 U/L (15-37); Alanine Aminotransfer ALT/SGPT 107 U/L (16-61); Albumin, Serum 2.5 g/dL (3.2-5.0); Alkaline Phosphatase 98 U/L (45-117); Anion Gap 6 (5-15); BUN 42 mg/dL (7-18); BUN/Creat Ratio 26.1 RATIO (10-20); Calcium,Total 8.4 mg/dL (8.5-10.1); Chloride 109 mmol/L (98-107); Creatinine, Serum 1.61 mg/dL (0.70-1.30); EST Glomerular Filtration Rate 45 mL/min (>60); Est Glom Filt Rate - Afr Amer 55 mL/min (>60); Estimated Creatinine Clearance 43.45 ml/min; Globulin 4.6 g/dL (2.2-4.2); Glucose 297 mg/dL (74-106); Potassium 4.5 mmol/L (3.5-5.1); Protein, Total 7.1 g/dL (6.4-8.2); Sodium Level 143 mmol/L (136-145)
[2021-04-25 04:53] LABS: Partial Thromboplast Time 47.5 Seconds (24.1-36.2)
[2021-04-25] MEDS: HEPARIN/D5w 25,000 UNITS 25,000 UNITS/250 ML IV.SOLN. 10 UNITS IV ×2 (05:41→07:32)
--- NOTE | 2021-04-25 06:40 | PN.CC_ITS ---
Assessment & Plan Assessment/Plan (1) Hypoxia: (2) Pneumonia due to COVID-19 virus: PLAN: RECOMMENDATIONS: 1. Continue BiPAP and wean FiO2 to maintain saturations at or above 90%. Attempt Airvo if tolerated. 2. Continue Decadron to complete 10-day treatment course. 3. Continue empiric antimicrobials. 4. Continue baricitinib per ID recommendations. 5. Patient to remain n.p.o. for now. 6. Continue heparin infusion for now. IMPRESSIONS: 1. Acute hypoxemic respiratory failure secondary to COVID-19 pneumonia The patient has had worsening in his oxygenation status following admission to the hospital on April 21. The patient ultimately had to be transferred to the medical intensive care unit on April 24 and is currently requiring BiPAP with an FiO2 requirement of 100%. The patient was deemed to be outside of the window for remdesivir. He has been initiated on Decadron. The patient did have a mildly elevated D-dimer. However, CTA chest was unable to be completed. Therefore, the patient was started on a continuous heparin infusion, which will be continued. While awaiting sputum culture results, will place the patient empirically on antimicrobials. Underlying renal dysfunction would preclude the use of diuretics at this time. Patient will be continued on BiPAP for now. FiO2 will be weaned for saturations greater than 90%. The patient will remain on Decadron and baricitinib as ordered. 2. Paroxysmal atrial flutter Echocardiogram was unremarkable. Continue current medical management. 3. Acute on chronic kidney disease Likely prerenal in etiology and related to acute presentation. Creatinine is stable. We will continue to monitor urine output. No current indication for renal replacement therapy. 4. Morbid obesity/history of FARSHAD/diabetes mellitus/hypertension/hyperlipidemia Complicates care, management, recovery and prognosis. Continue home medications as indicated. TIME: 34 minutes of critical care time, independent of procedures, was spent addressing the patient's acute hypoxemic respiratory failure secondary to COVID- 19 pneumonia, paroxysmal atrial flutter, acute on chronic kidney disease, review of all data and collaboration with the care team. ([id number]) Subjective Subjective The patient was seen and examined at the bedside this morning. Events from the last 24 hours have been reviewed. The patient is currently afebrile, hemodynamically stable and maintaining appropriate oxygen saturations on BiPAP with a pressure support of 16/10 centimeters of water and an FiO2 of 90%. The patient remains in atrial fibrillation/flutter. He is currently documented to be overall net +3.4 L for the hospital admission. The patient remains on a continuous heparin infusion along with empiric antimicrobials, Decadron and baricitinib. Creatinine was noted be 1.6 this morning. Objective Data Objective Data The patient's most recent lab work, culture data and imaging studies have all been personally reviewed. Surface echocardiogram dated April 22 revealed an ejection fraction of 55%. Respiratory viral panel was negative. Strep and urine Legionella antigens were negative. Sputum culture dated April 21 appears to be mixed normal respiratory kae. Vital Signs: Vital Signs Temp Pulse Resp BP Pulse Ox 98.4 F 98 24 H 139/80 H 94 04/25/21 00:00 04/25/21 06:00 04/25/21 06:00 04/25/21 06:00 04/25/21 06:00 Oxygen Flow Rate (L/min) 15 Oxygen Delivery Method Bi-pap Weight: 130.1 kg Body Mass Index (BMI) 41.9 Intake & Output: Intake and Output for Last 24 Hours 04/23/21 04/24/21 04/25/21 23:59 23:59 23:59 Intake Total 937.93 / 937.93 339.47 / 339.47 207.7 / 207.7 Output Total 1775 / 1775 200 / 200 Balance 937.93 / 637.93 -1435.53 / -1435.53 7.7 / 7.7 Lab / Micro Data Attestation: I reviewed the patient's lab results. Result Diagrams: 04/24/21 09:03 04/25/21 03:55 Labs: Laboratory Results - last 24 hr 04/24/21 06:53: POC Glucose 286 H 04/24/21 09:03: WBC 11.1 H, RBC 4.62, Hgb 12.8 L, Hct 39.3 L, MCV 85.1, MCH 27.7, MCHC 32.6, RDW Std Deviation 44.7 H, RDW Coeff of Damion 14.6, Plt Count 262, MPV 9.4, Neut % (Auto) Not Reportable, Absolute Neuts (auto) 10.1 H, Absolute Lymphs (auto) 0.55 L, Total Counted 100, Neutrophils % (Manual) 86 H, Band Neutrophils % 5, Lymphocytes % (Manual) 5 L, Monocytes % (Manual) 2, Metamyelocytes % 2 H, Nucleated RBCs/100 WBC 1, Diff Path Review November, Platelet Estimate ADEQUATE, RBC Morphology NORM C+C 04/24/21 09:03: Sodium 139, Potassium 4.9, Chloride 107, Carbon Dioxide 24.0, Anion Gap 8, BUN 41 H, Creatinine 1.49 H, Estim Creat Clear Calc 46.95, Est GFR (MDRD) Af Amer 60, Est GFR (MDRD) Non-Af 49 L, BUN/Creatinine Ratio 27.5 H, Glucose 282 H, Calcium 8.1 L, Total Bilirubin 0.60, AST 142 H, ALT 136 H, Alkaline Phosphatase 104, Total Protein 7.1, Albumin 2.8 L, Globulin 4.3 H, Albumin/Globulin Ratio 0.7 L 04/24/21 09:03: APTT 57.6 H 04/24/21 12:21: POC Glucose 302 H 04/24/21 15:00: MRSA (PCR) Negative 04/24/21 16:56: POC Glucose 317 H 04/24/21 17:15: APTT 57.7 H 04/24/21 19:46: POC Glucose 303 H 04/25/21 03:55: Sodium 143, Potassium 4.5, Chloride 109 H, Carbon Dioxide 28.0, Anion Gap 6, BUN 42 H, Creatinine 1.61 H, Estim Creat Clear Calc 43.45, Est GFR (MDRD) Af Amer 55 L, Est GFR (MDRD) Non-Af 45 L, BUN/Creatinine Ratio 26.1 H, Glucose 297 H, Calcium 8.4 L, Total Bilirubin 0.50, AST 100 H, ALT 107 H, Alkaline Phosphatase 98, Total Protein 7.1, Albumin 2.5 L, Globulin 4.6 H, Albumin/Globulin Ratio 0.5 L 04/25/21 03:55: APTT 47.5 H Micro: Microbiology 04/24/21 16:00 Urine, Random Streptococcus pneumoniae Antigen (M - Final 04/21/21 16:35 Sputum, Expectorated/Coughed Gram Stain - Final 04/21/21 16:35 Sputum, Expectorated/Coughed Respiratory Culture - Final 04/21/21 19:51 Mucosa - Nasopharyngeal Respiratory Panel (PCR) - Final 04/21/21 19:05 Urine, Clean Catch Legionella Antigen - Final Radiography Diagnostic Testing: Radiology Impression Chest X-Ray 04/24/21 22:45 IMPRESSION: 1. Right peripherally inserted central catheter (PICC) tip in the upper superior vena cava. 2. Stable infiltrates in the mid and lower lungs. ASSESSMENT: ABNORMAL report - There are abnormal findings in this report which may be related or unrelated to the reason for the exam. Electronically Signed: Gaurav Falcon MD at 23:20 EDT Tel , Service support , Rhythm Strip Rhythm Strip: A-fib Rate: 130 Ectopy: None Physical Exam Const alert General Appearance: cooperative and on BiPAP Nutritional Appearance: morbidly obese HEENT normocephalic and head/scalp atraumatic Eyes PERRL, EOMs intact bilaterally and conjunctivae normal Neck supple General: trachea midline Chest inspection of chest normal Resp Effort and Inspection: tachypneic Auscultation: rales and diminished lung sounds; Negative for rhonchi or wheezes Cardio S1 normal heart sound and S2 normal heart sound Cardio Narrative: IRIR Rate: tachycardic GI normal to inspection, nondistended, normoactive bowel sounds Extremity no clubbing, cyanosis or edema Skin no rashes or lesions noted Neuro CN's II-XII intact bilaterally, moves all extremities and no focal motor deficits Psych cooperative and affect normal Charges/Coding Procedures Hospitalists Procedures: 99998 Critial Care 1st Hr
[2021-04-25] MEDS: Insulin Lispro 100 UNIT/ML INSULN.PEN SC ×4 (07:32→21:00)
--- NOTE | 2021-04-25 07:50 | PN.HOSP_ITS ---
Subjective Subjective Patient was transferred to the intensive care unit due to increasing oxygen demands. Currently on noninvasive ventilation BiPAP Objective Data Objective Data Vital Signs: Vital Signs Temp Pulse Resp BP Pulse Ox 98.4 F 111 H 25 H 145/84 H 94 04/25/21 00:00 04/25/21 07:14 04/25/21 07:14 04/25/21 07:00 04/25/21 07:14 Oxygen Flow Rate (L/min) 15 Oxygen Delivery Method Bi-pap Weight: 130.1 kg Body Mass Index (BMI) 41.9 Intake & Output: Intake and Output for Last 24 Hours 04/23/21 04/24/21 04/25/21 23:59 23:59 23:59 Intake Total 937.93 / 937.93 339.47 / 339.47 226.2 / 226.2 Output Total 1775 / 1775 200 / 200 Balance 937.93 / 637.93 -1435.53 / -1435.53 26.2 / 26.2 Lab / Micro Data Result Diagrams: 04/24/21 09:03 04/25/21 03:55 Labs: Laboratory Results - last 24 hr 04/24/21 09:03: WBC 11.1 H, RBC 4.62, Hgb 12.8 L, Hct 39.3 L, MCV 85.1, MCH 27.7, MCHC 32.6, RDW Std Deviation 44.7 H, RDW Coeff of Damion 14.6, Plt Count 262, MPV 9.4, Neut % (Auto) Not Reportable, Absolute Neuts (auto) 10.1 H, Absolute Lymphs (auto) 0.55 L, Total Counted 100, Neutrophils % (Manual) 86 H, Band Neutrophils % 5, Lymphocytes % (Manual) 5 L, Monocytes % (Manual) 2, Metamyelocytes % 2 H, Nucleated RBCs/100 WBC 1, Diff Path Review November, Platelet Estimate ADEQUATE, RBC Morphology NORM C+C 04/24/21 09:03: Sodium 139, Potassium 4.9, Chloride 107, Carbon Dioxide 24.0, Anion Gap 8, BUN 41 H, Creatinine 1.49 H, Estim Creat Clear Calc 46.95, Est GFR (MDRD) Af Amer 60, Est GFR (MDRD) Non-Af 49 L, BUN/Creatinine Ratio 27.5 H, Glucose 282 H, Calcium 8.1 L, Total Bilirubin 0.60, AST 142 H, ALT 136 H, Alkaline Phosphatase 104, Total Protein 7.1, Albumin 2.8 L, Globulin 4.3 H, Albumin/Globulin Ratio 0.7 L 04/24/21 09:03: APTT 57.6 H 04/24/21 12:21: POC Glucose 302 H 04/24/21 15:00: MRSA (PCR) Negative 04/24/21 16:56: POC Glucose 317 H 04/24/21 17:15: APTT 57.7 H 04/24/21 19:46: POC Glucose 303 H 04/25/21 03:55: Sodium 143, Potassium 4.5, Chloride 109 H, Carbon Dioxide 28.0, Anion Gap 6, BUN 42 H, Creatinine 1.61 H, Estim Creat Clear Calc 43.45, Est GFR (MDRD) Af Amer 55 L, Est GFR (MDRD) Non-Af 45 L, BUN/Creatinine Ratio 26.1 H, Glucose 297 H, Calcium 8.4 L, Total Bilirubin 0.50, AST 100 H, ALT 107 H, Silvana line Phosphatase 98, Total Protein 7.1, Albumin 2.5 L, Globulin 4.6 H, Albumin/Globulin Ratio 0.5 L 04/25/21 03:55: APTT 47.5 H Micro: Microbiology 04/24/21 16:00 Urine, Random Streptococcus pneumoniae Antigen (M - Final 04/21/21 16:35 Sputum, Expectorated/Coughed Gram Stain - Final 04/21/21 16:35 Sputum, Expectorated/Coughed Respiratory Culture - Final 04/21/21 19:51 Mucosa - Nasopharyngeal Respiratory Panel (PCR) - Final 04/21/21 19:05 Urine, Clean Catch Legionella Antigen - Final Radiography Diagnostic Testing: Radiology Impression Chest X-Ray 04/24/21 22:45 IMPRESSION: 1. Right peripherally inserted central catheter (PICC) tip in the upper superior vena cava. 2. Stable infiltrates in the mid and lower lungs. ASSESSMENT: ABNORMAL report - There are abnormal findings in this report which may be related or unrelated to the reason for the exam. Electronically Signed: Gaurav Falcon MD at 23:20 EDT Tel , Service support , Rhythm Strip Rhythm Strip: A-fib Rate: 130 Ectopy: None Physical Exam Narrative GENERAL: cooperative but appears ill looking HEENT: Atraumatic; EYES; Anicteric, Normal Conjunctiva NECK; supple, normal thyroid, RESPIRATORY: Diminished to auscultation CARDIOVASCULAR: Regular S1 S2, GI: soft, normoactive bowel sounds, : No Renal angle tenderness; EXTREMITIES: No edema, no clubbing, MUSCULOSKELETAL: no muscle waisting NEURO: Awake; no lateralizing signs. SKIN: No Rash PSYCH; Flat affect Assessment & Plan Assessment/Plan (1) Pneumonia due to COVID-19 virus: (2) Hypoxia: PLAN: Patient is a 71-year-old gentleman with multiple comorbidities unvac cinated against COVID-19 who presented with progressive shortness of breath. Patient symptoms started almost a week prior to his admission. His Covid diagnosis was on 04/20/2021. He did receive monoclonal antibody therapy as outpatient however due to progressive and worsening symptoms he presented to the emergency department 1. Acute hypoxic respiratory failure ?Secondary to SARS-CoV-2 pneumonia checks x-ray obtained on admission demonstrated bibasilar infiltrate consistent with COVID-19 pneumonia. Patient admitted to monitored bed started on supplemental oxygen in addition to Decadron. Patient was not started on remdesivir due to his impaired kidney function -04/23/2021 Patient seen still requiring high flow oxygen currently at 15 L and saturating in the high 80s. Did encourage the patient on the use of incentive spirometry and flutter valve -04/24/2021;Patient oxygen requirements increased respiratory status deteriorated resulting in patient being placed on noninvasive ventilation BiPAP. Still remains significantly tachypneic at rest. Decision was made to transfer patient to the intensive care unit. -04/25/2021; Patient was transferred to the intensive care unit due to increasing oxygen demands. Currently on noninvasive ventilation BiPAP 2. Hyperkalemia ?Secondary to impaired kidney function. An order was given for Kayexalate repeat potassium ordered -04/24/2021; potassium down to 4.9 3. Dyslipidemia -Patient is on statin therapy, continued at home dose 4. Morbid obesity with BMI of 42.1 ?Weight loss advised 5. Diabetes mellitus type 2 ?Held patient oral hypoglycemic agent placed on long-acting insulin in addition to Accu-Cheks before meals and at bedtime with sliding scale coverage 6. Essential hypertension ?Patient is on lisinopril held in view of his impaired kidney function 7. GERD ?On PPI 8. New onset A. fib/flutter ?Rate currently controlled -04/24/2021; patient rates has remained labile. Remains on systemic anticoagulation with heparin 9. Obstructive sleep apnea ?Patient is on CPAP at night 10. DVT prophylaxis ?Patient is on heparin 11. Acute kidney injury superimposed on chronic kidney disease stage III 8 ?04/24/2021; Baseline creatinine was 1.33 as of 08/06/2019. Creatinine on admission was 2.86. Was rehydrated creatinine down to 1.49 Charges/Coding Visit Charges Inpatient E&M: 55769 Subs Hosp L3
[2021-04-25 07:55] LABS: Bedside Glucose 290 mg/dL (70-110)
[2021-04-25] MEDS: Loratadine 10 MG Tablet PO (10:40)
[2021-04-25] MEDS: Aspirin 81 MG TAB.CHEW PO (10:40)
[2021-04-25] MEDS: Menthol/Lanolin/Calamine/Znox 113 GM Tube 1 APPLIC TOPICAL ×2 (10:40→21:00)
[2021-04-25] MEDS: Pantoprazole Sodium 20 MG Tablet PO (10:40)
[2021-04-25] MEDS: dilTIAZem 60 MG Tablet PO ×2 (10:40→17:49)
[2021-04-25] MEDS: Metoprolol Tartrate 25 MG Tablet PO ×2 (10:40→20:59)
[2021-04-25] MEDS: Atorvastatin Calcium 20 MG Tablet PO (10:40)
[2021-04-25] MEDS: CHLORHEXIDINE GLUC 2% CLOTH 1 EACH TOWELETTE TOPICAL (10:41)
[2021-04-25] MEDS: dexAMETHasone 4 MG/ML Vial 6 MG IV (12:57)
[2021-04-25 13:11] LABS: Bedside Glucose 392 mg/dL (70-110)
[2021-04-25 13:27] LABS: Partial Thromboplast Time 41.4 Seconds (24.1-36.2)
[2021-04-25] MEDS: Heparin Injection (Vial) 5,000 UNIT/ML VIAL IV ×2 (13:51→21:41)
[2021-04-25] MEDS: guaiFENesin 10 ML UDC (200MG/10ML) 20 ML PO (13:51)
[2021-04-25] MEDS: Acetaminophen 325 MG Tablet 650 MG PO (13:52)
[2021-04-25] MEDS: 0.9% Saline Lock 10 ML Syringe IV ×2 (13:52→20:59)
[2021-04-25 17:46] LABS: Bedside Glucose 335 mg/dL (70-110)
[2021-04-25 21:12] LABS: Hematocrit 35.1 % (40-54); Hemoglobin 11.1 g/dL (13.0-16.5); Mean Corp Hgb Conc 31.6 g/dL (32-36); Mean Corpuscular Hgb 27.7 pg (27.0-32.0); Mean Corpuscular Volume 87.5 fL (80-94); Mean Platelet Vol. 9.8 fl (6.2-12.0); POSITIVE COUNT YES; POSITIVE MORPHOLOGY YES; Platelet Count 251 K/mm3 (150-450); RBC Distribution Width CV 14.5 % (11.6-14.6); RBC Distribution Width SD 46.6 fl (35.1-43.9); Red Blood Count 4.01 M/mm3 (4.6-6.2)
[2021-04-25 21:21] LABS: Differential Indicated MANUAL DIFF; Partial Thromboplast Time 45.5 Seconds (24.1-36.2)
[2021-04-25 21:21] LABS: Bedside Glucose 310 mg/dL (70-110)
[2021-04-25 22:32] LABS: Lymphocyte 14 % (19-41); Metamyelocyte 4 % (0-1); Monocyte 7 % (0-10); Neutrophil-Band 2 % (0-5); Neutrophil-Segmented 73 % (47-70); Total Cells Counted 100 (MANUAL DIFF)
[2021-04-25 22:33] LABS: Absolute Neutrophil Count 7.9 X10^3/uL (2.0-7.7)
[2021-04-25 22:34] LABS: Differential Comment MANUAL DIFF
[2021-04-25 22:35] LABS: Platelet Estimate ADEQUATE (ADEQ); Red Cell Morphology NORM C+C NORMAL (NORM C&C)
[2021-04-26] VITALS (38 sets, daily range): BP systolic 122–174; BP diastolic 56–100; PULSE 72–101; RESP 12–33; TEMP 35.9–37; O2SAT 88–96
[2021-04-26] MEDS: dilTIAZem 60 MG Tablet PO ×4 (04:17→20:03)
[2021-04-26 04:29] LABS: Hematocrit 34.3 % (40-54); Hemoglobin 10.9 g/dL (13.0-16.5); Mean Corp Hgb Conc 31.8 g/dL (32-36); Mean Corpuscular Hgb 27.8 pg (27.0-32.0); Mean Corpuscular Volume 87.5 fL (80-94); Mean Platelet Vol. 9.1 fl (6.2-12.0); POSITIVE COUNT YES; POSITIVE MORPHOLOGY YES; Platelet Count 248 K/mm3 (150-450); RBC Distribution Width CV 14.6 % (11.6-14.6); RBC Distribution Width SD 46.9 fl (35.1-43.9); Red Blood Count 3.92 M/mm3 (4.6-6.2); White Blood Count 9.5 K/mm3 (4.4-11.0)
[2021-04-26 04:45] LABS: ALB/GLOB Ratio 0.5 RATIO (0.9-2.4); AST(SGOT) 68 U/L (15-37); Alanine Aminotransfer ALT/SGPT 90 U/L (16-61); Albumin, Serum 2.3 g/dL (3.2-5.0); Alkaline Phosphatase 103 U/L (45-117); Anion Gap 8 (5-15); BUN 43 mg/dL (7-18); BUN/Creat Ratio 25.7 RATIO (10-20); Calcium,Total 8.2 mg/dL (8.5-10.1); Chloride 105 mmol/L (98-107); Creatinine, Serum 1.67 mg/dL (0.70-1.30); EST Glomerular Filtration Rate 43 mL/min (>60); Est Glom Filt Rate - Afr Amer 52 mL/min (>60); Estimated Creatinine Clearance 41.89 ml/min; Globulin 4.6 g/dL (2.2-4.2); Glucose 323 mg/dL (74-106); Potassium 4.6 mmol/L (3.5-5.1); Protein, Total 6.9 g/dL (6.4-8.2); Sodium Level 140 mmol/L (136-145)
[2021-04-26 05:20] LABS: Partial Thromboplast Time 56.6 Seconds (24.1-36.2)
[2021-04-26 05:33] LABS: Differential Indicated MANUAL DIFF
[2021-04-26] MEDS: HEPARIN/D5w 25,000 UNITS 25,000 UNITS/250 ML IV.SOLN. 12 UNITS IV (06:37)
[2021-04-26] MEDS: Insulin Lispro 100 UNIT/ML INSULN.PEN SC ×4 (06:42→20:01)
--- NOTE | 2021-04-26 07:05 | PCM.PN.INT ---
Assessment & Plan Assessment/Plan (1) Hypoxia: (2) Pneumonia due to COVID-19 virus: PLAN: RECOMMENDATIONS: 1. Continue Airvo and wean FiO2 to maintain saturations at or above 90%. 2. Continue BiPAP, at a minimum, on a nightly basis. 3. Continue Decadron to complete 10-day treatment course. 4. Continue empiric antimicrobials. 5. Continue baricitinib per ID recommendations. 6. Continue heparin infusion for now. IMPRESSIONS: 1. Acute hypoxemic respiratory failure secondary to COVID-19 pneumonia The patient has had worsening in his oxygenation status following admission to the hospital on April 21. The patient ultimately had to be transferred to the medical intensive care unit on April 24 and is currently requiring BiPAP with an FiO2 requirement of 100%. The patient was deemed to be outside of the window for remdesivir. He has been initiated on Decadron. The patient did have a mildly elevated D-dimer. However, CTA chest was unable to be completed. Therefore, the patient was started on a continuous heparin infusion, which will be continued. While awaiting sputum culture results, will place the patient empirically on antimicrobials. Underlying renal dysfunction would preclude the use of diuretics at this time. Patient will be continued on Airvo for now. FiO2 will be weaned for saturations greater than 90%. The patient will remain on Decadron and baricitinib as ordered. 2. Paroxysmal atrial flutter Echocardiogram was unremarkable. Continue current medical management. 3. Acute on chronic kidney disease Likely prerenal in etiology and related to acute presentation. Creatinine is stable. We will continue to monitor urine output. No current indication for renal replacement therapy. 4. Morbid obesity/history of FARSHAD/diabetes mellitus/hypertension/hyperlipidemia Complicates care, management, recovery and prognosis. Continue home medications as indicated. This note was generated with [employer] dictation software. It may contain incorrect words, spelling, and punctuation that were not noted in checking the note before signing. Subjective Subjective The patient was seen and examined at the bedside this morning. Events from the last 24 hours have been reviewed. The patient is currently afebrile, hemodynamically stable and maintaining appropriate oxygen saturations on Airvo heated high flow with an FiO2 requirement of 90% and flow rate of 60 L/min. The patient was tolerant of BiPAP overnight. He is currently documented to be overall net +4.2 L for the hospital admission. The patient remains on a continuous heparin infusion along with empiric antimicrobials, Decadron and baricitinib. Creatinine was again noted be 1.6 this morning. Objective Data Objective Data The patient's most recent lab work, culture data and imaging studies have all been personally reviewed. Surface echocardiogram dated April 22 revealed an ejection fraction of 55%. Respiratory viral panel was negative. Strep and urine Legionella antigens were negative. Sputum culture dated April 21 appears to be mixed normal respiratory kae. Vital Signs: Vital Signs Temp Pulse Resp BP Pulse Ox 97.6 F L 83 16 137/69 H 93 04/26/21 04:00 04/26/21 06:00 04/26/21 06:00 04/26/21 06:00 04/26/21 06:00 Oxygen Flow Rate (L/min) 60 Oxygen Delivery Method Airvo Weight: 130.2 kg Body Mass Index (BMI) 41.9 Intake & Output: Intake and Output for Last 24 Hours 04/24/21 04/25/21 04/26/21 23:59 23:59 23:59 Intake Total 339.47 / 339.47 1274.92 / 1274.92 151.28 / 151.28 Output Total 1775 / 1775 200 / 200 425 / 425 Balance -1435.53 / -1435.53 1074.92 / 1074.92 -273.72 / -273.72 Medical Nutrition Assessment Dietitian: Malnutrition Criteria Met Start: 04/25/21 10:11 Freq: Status: Active Protocol: Document 04/25/21 10:11 (Rec: 04/25/21 10:11 [id number]) Nutrition Malnutrition Evidence of Malnutrition Exists Yes Malnutrition (moderate): Acute Illness/Injury Evidenced By Suboptimal Energy Intake ( Severe),Weight Loss (Moderate) Intake Problem Inadequate Oral Intake Etiology r/t resp. failure, decreased appetite d/t acute illness Signs/Symptoms as evidenced by estimated PO intake meeting <50% of estimated nutritional needs x 5 days Status Active Problem Imbalance of Nutrients Etiology - Signs/Symptoms - Status Inactive Problem Clinical Problem Acute Disease or Injury Related Malnutrition Etiology moderate, acute malnutrition r /t inadequate energy intake d/ t resp. failure, decreased appetite Signs/Symptoms as evidenced by estimated PO intake meeting <50% of estimated nutritional needs x 5 days; unintentional wt loss of 5.5#/1.8% x 4 days Status Active Problem Altered Nutrient-Related Laboratory Values Etiology - Signs/Symptoms - Status Inactive Problem Recommendation Dietitian Recommendations/Changes regular diet, 120mL glucerna ONS w/ meals when PO diet resumed d/t signs/symptoms of acute malnutrition. Lab / Micro Data Attestation: I reviewed the patient's lab results. Result Diagrams: 04/26/21 03:40 04/26/21 03:40 Labs: Laboratory Results - last 24 hr 04/25/21 07:31: POC Glucose 290 H 04/25/21 12:50: APTT 41.4 H 04/25/21 12:56: POC Glucose 392 H 04/25/21 16:53: POC Glucose 335 H 04/25/21 20:40: APTT 45.5 H 04/25/21 20:40: WBC 10.0, RBC 4.01 L, Hgb 11.1 L, Hct 35.1 L, MCV 87.5, MCH 27.7, MCHC 31.6 L, RDW Std Deviation 46.6 H, RDW Coeff of Damion 14.5, Plt Count 251, MPV 9.8, Neut % (Auto) Not Reportable, Absolute Neuts (auto) 7.9 H, Absolute Lymphs (auto) 1.40, Total Counted 100, Neutrophils % (Manual) 73 H, Band Neutrophils % 2, Lymphocytes % (Manual) 14 L, Monocytes % (Manual) 7, Metamyelocytes % 4 H, Differential Comment MANUAL DIFF, Diff Path Review May foll, Platelet Estimate ADEQUATE, RBC Morphology NORM C+C 04/25/21 20:54: POC Glucose 310 H 04/26/21 03:40: WBC 9.5, RBC 3.92 L, Hgb 10.9 L, Hct 34.3 L, MCV 87.5, MCH 27.8, MCHC 31.8 L, RDW Std Deviation 46.9 H, RDW Coeff of Damion 14.6, Plt Count 248, MPV 9.1, Neut % (Auto) Not Reportable 04/26/21 03:40: Sodium 140, Potassium 4.6, Chloride 105, Carbon Dioxide 27.0, Anion Gap 8, BUN 43 H, Creatinine 1.67 H, Estim Creat Clear Calc 41.89, Est GFR (MDRD) Af Amer 52 L, Est GFR (MDRD) Non-Af 43 L, BUN/Creatinine Ratio 25.7 H, Glucose 323 H, Calcium 8.2 L, Total Bilirubin 0.60, AST 68 H, ALT 90 H, Alkaline Phosphatase 103, Total Protein 6.9, Albumin 2.3 L, Globulin 4.6 H, Albumin/Globulin Ratio 0.5 L 04/26/21 03:40: APTT 56.6 H Micro: Microbiology 04/24/21 16:00 Urine, Random Streptococcus pneumoniae Antigen (M - Final 04/21/21 16:35 Sputum, Expectorated/Coughed Gram Stain - Final 04/21/21 16:35 Sputum, Expectorated/Coughed Respiratory Culture - Final 04/21/21 19:51 Mucosa - Nasopharyngeal Respiratory Panel (PCR) - Final 04/21/21 19:05 Urine, Clean Catch Legionella Antigen - Final Rhythm Strip Rhythm Strip: A-fib Rate: 130 Ectopy: None Physical Exam Const alert Constitutional Narrative: Currently tolerating Airvo. General Appearance: cooperative Nutritional Appearance: morbidly obese HEENT normocephalic and head/scalp atraumatic Eyes PERRL, EOMs intact bilaterally and conjunctivae normal Neck supple General: trachea midline Chest inspection of chest normal Resp Auscultation: rales and diminished lung sounds; Negative for rhonchi or wheezes Cardio regular rate, regular rhythm, S1 normal heart sound and S2 normal heart sound Cardio Narrative: IRIR GI normal to inspection, nondistended, normoactive bowel sounds Extremity no clubbing, cyanosis or edema Skin no rashes or lesions noted Neuro CN's II-XII intact bilaterally, moves all extremities and no focal motor deficits Psych cooperative and affect normal Charges/Coding Visit Charges Inpatient E&M: 57861 Subs Hosp L3
[2021-04-26 07:48] LABS: Absolute Lymphocyte Count 0.66 X10^3/uL (0.83-4.51); Absolute Neutrophil Count 7.6 X10^3/uL (2.0-7.7); Metamyelocyte 2 % (0-1); Myelocyte 3 % (0-0); Neutrophil-Band 2 % (0-5); Neutrophil-Segmented 78 % (47-70); Promyelocyte 3 % (0-0)
[2021-04-26 07:49] LABS: Blast 2 % (0-0); Lymphocyte 7 % (19-41); Monocyte 3 % (0-10); Platelet Estimate ADEQUATE (ADEQ); Red Cell Morphology NORM C+C NORMAL (NORM C&C)
--- NOTE | 2021-04-26 07:56 | PN.HOSP_ITS ---
Subjective Subjective Patient seen remains in ICU. Patient desaturated easily with minimal activity. His pulse ox was in the mid 80s while eating. He was on Airvo with 60 L flow at 85% FiO2 Objective Data Objective Data Vital Signs: Vital Signs Temp Pulse Resp BP Pulse Ox 97.6 F L 84 16 126/77 H 92 04/26/21 04:00 04/26/21 07:36 04/26/21 07:36 04/26/21 07:00 04/26/21 07:36 Oxygen Flow Rate (L/min) 60 Oxygen Delivery Method Airvo Weight: 130.2 kg Body Mass Index (BMI) 41.9 Intake & Output: Intake and Output for Last 24 Hours 04/24/21 04/25/21 04/26/21 23:59 23:59 23:59 Intake Total 339.47 / 339.47 1274.92 / 1274.92 151.28 / 151.28 Output Total 1775 / 1775 200 / 200 425 / 425 Balance -1435.53 / -1435.53 1074.92 / 1074.92 -273.72 / -273.72 Medical Nutrition Assessment Dietitian: Malnutrition Criteria Met Start: 04/25/21 10:11 Freq: Status: Active Protocol: Document 04/25/21 10:11 (Rec: 04/25/21 10:11 [id number]) Nutrition Malnutrition Evidence of Malnutrition Exists Yes Malnutrition (moderate): Acute Illness/Injury Evidenced By Suboptimal Energy Intake ( Severe),Weight Loss (Moderate) Intake Problem Inadequate Oral Intake Etiology r/t resp. failure, decreased appetite d/t acute illness Signs/Symptoms as evidenced by estimated PO intake meeting <50% of estimated nutritional needs x 5 days Status Active Problem Imbalance of Nutrients Etiology - Signs/Symptoms - Status Inactive Problem Clinical Problem Acute Disease or Injury Related Malnutrition Etiology moderate, acute malnutrition r /t inadequate energy intake d/ t resp. failure, decreased appetite Signs/Symptoms as evidenced by estimated PO intake meeting <50% of estimated nutritional needs x 5 days; unintentional wt loss of 5.5#/1.8% x 4 days Status Active Problem Altered Nutrient-Related Laboratory Values Etiology - Signs/Symptoms - Status Inactive Problem Recommendation Dietitian Recommendations/Changes regular diet, 120mL glucerna ONS w/ meals when PO diet resumed d/t signs/symptoms of acute malnutrition. Lab / Micro Data Result Diagrams: 04/26/21 03:40 04/26/21 03:40 Labs: Laboratory Results - last 24 hr 04/25/21 12:50: APTT 41.4 H 04/25/21 12:56: POC Glucose 392 H 04/25/21 16:53: POC Glucose 335 H 04/25/21 20:40: APTT 45.5 H 04/25/21 20:40: WBC 10.0, RBC 4.01 L, Hgb 11.1 L, Hct 35.1 L, MCV 87.5, MCH 27.7, MCHC 31.6 L, RDW Std Deviation 46.6 H, RDW Coeff of Damion 14.5, Plt Count 251, MPV 9.8, Neut % (Auto) Not Reportable, Absolute Neuts (auto) 7.9 H, Absolute Lymphs (auto) 1.40, Total Counted 100, Neutrophils % (Manual) 73 H, Band Neutrophils % 2, Lymphocytes % (Manual) 14 L, Monocytes % (Manual) 7, Metamyelocytes % 4 H, Differential Comment MANUAL DIFF, Diff Path Review May kelley, Platelet Estimate ADEQUATE, RBC Morphology NORM C+C 04/25/21 20:54: POC Glucose 310 H 04/26/21 03:40: WBC 9.5, RBC 3.92 L, Hgb 10.9 L, Hct 34.3 L, MCV 87.5, MCH 27.8, MCHC 31.8 L, RDW Std Deviation 46.9 H, RDW Coeff of Damion 14.6, Plt Count 248, MPV 9.1, Neut % (Auto) Not Reportable, Absolute Neuts (auto) 7.6, Absolute Lymphs (auto) 0.66 L, Neutrophils % (Manual) 78 H, Band Neutrophils % 2, Lymphocytes % (Manual) 7 L, Monocytes % (Manual) 3, Metamyelocytes % 2 H, Myelocytes % 3 H, Promyelocytes % 3 H, Blast Cells % 2 H*, Diff Path Review May kelley, Platelet Estimate ADEQUATE, RBC Morphology NORM C+C 04/26/21 03:40: Sodium 140, Potassium 4.6, Chloride 105, Carbon Dioxide 27.0, Anion Gap 8, BUN 43 H, Creatinine 1.67 H, Estim Creat Clear Calc 41.89, Est GFR (MDRD) Af Amer 52 L, Est GFR (MDRD) Non-Af 43 L, BUN/Creatinine Ratio 25.7 H, Glucose 323 H, Calcium 8.2 L, Total Bilirubin 0.60, AST 68 H, ALT 90 H, Alkaline Phosphatase 103, Total Protein 6.9, Albumin 2.3 L, Globulin 4.6 H, Albumin/Globulin Ratio 0.5 L 04/26/21 03:40: APTT 56.6 H Micro: Microbiology 04/24/21 16:00 Urine, Random Streptococcus pneumoniae Antigen (M - Final 04/21/21 16:35 Sputum, Expectorated/Coughed Gram Stain - Final 04/21/21 16:35 Sputum, Expectorated/Coughed Respiratory Culture - Final 04/21/21 19:51 Mucosa - Nasopharyngeal Respiratory Panel (PCR) - Final 04/21/21 19:05 Urine, Clean Catch Legionella Antigen - Final Rhythm Strip Rhythm Strip: A-fib Rate: 130 Ectopy: None Physical Exam Narrative GENERAL: cooperative but appears ill looking HEENT: Atraumatic; EYES; Anicteric, Normal Conjunctiva NECK; supple, normal thyroid, RESPIRATORY: Diminished to auscultation CARDIOVASCULAR: Regular S1 S2, GI: soft, normoactive bowel sounds, : No Renal angle tenderness; EXTREMITIES: No edema, no clubbing, MUSCULOSKELETAL: no muscle waisting NEURO: Awake; no lateralizing signs. SKIN: No Rash PSYCH; Flat affect Assessment & Plan Assessment/Plan (1) Pneumonia due to COVID-19 virus: (2) Hypoxia: PLAN: Patient is a 71-year-old gentleman with multiple comorbidities unvaccinated against COVID-19 who presented with progressive shortness of breath. Patient symptoms started almost a week prior to his admission. His Covid diagnosis was on 04/20/2021. He did receive monoclonal antibody therapy as outpatient however due to progressive and worsening symptoms he presented to the emergency department 1. Acute hypoxic respiratory failure ?Secondary to SARS-CoV-2 pneumonia checks x-ray obtained on admission demonstrated bibasilar infiltrate consistent with COVID-19 pneumonia. Patient admitted to monitored bed started on supplemental oxygen in addition to Decadron. Patient was not started on remdesivir due to his impaired kidney function -04/23/2021 Patient seen still requiring high flow oxygen currently at 15 L and saturating in the high 80s. Did encourage the patient on the use of incentive s pirometry and flutter valve -04/24/2021;Patient oxygen requirements increased respiratory status deteriorated resulting in patient being placed on noninvasive ventilation BiPAP. Still remains significantly tachypneic at rest. Decision was made to transfer patient to the intensive care unit. -04/25/2021; Patient was transferred to the intensive care unit due to increasing oxygen demands. Currently on noninvasive ventilation BiPAP -04/26/2021; Patient seen remains in ICU. Patient desaturated easily with minimal activity. His pulse ox was in the mid 80s while eating. He was on Airvo with 60 L flow at 85% FiO2 2. Hyperkalemia ?Secondary to impaired kidney function. An order was given for Kayexalate repeat potassium ordered -04/24/2021; potassium down to 4.9 3. Dyslipidemia -Patient is on statin therapy, continued at home dose 4. Morbid obesity with BMI of 42.1 ?Weight loss advised 5. Diabetes mellitus type 2 ?Held patient oral hypoglycemic agent placed on long-acting insulin in addition to Accu-Cheks before meals and at bedtime with sliding scale coverage 6. Essential hypertension ?Patient is on lisinopril held in view of his impaired kidney function 7. GERD ?On PPI 8. New onset A. fib/flutter ?Rate currently controlled -04/24/2021; patient rates has remained labile. Remains on systemic anticoagulation with heparin 9. Obstructive sleep apnea ?Patient is on CPAP at night 10. DVT prophylaxis ?Patient is on heparin 11. Acute kidney injury superimposed on chronic kidney disease stage III 8 ?04/24/2021; Baseline creatinine was 1.33 as of 08/06/2019. Creatinine on admission was 2.86. Was rehydrated creatinine down to 1.49 04/26/2021; creatinine slightly up to 1.67 Charges/Coding Visit Charges Inpatient E&M: 21826 Subs Hosp L3
[2021-04-26] MEDS: 0.9% Saline Lock 10 ML Syringe IV (10:15)
[2021-04-26] MEDS: Acetaminophen 325 MG Tablet 650 MG PO ×2 (10:15→17:01)
[2021-04-26] MEDS: Pantoprazole Sodium 20 MG Tablet PO (10:16)
[2021-04-26] MEDS: Loratadine 10 MG Tablet PO (10:16)
[2021-04-26] MEDS: dexAMETHasone 4 MG/ML Vial 6 MG IV (10:16)
[2021-04-26] MEDS: Atorvastatin Calcium 20 MG Tablet PO (10:16)
[2021-04-26] MEDS: Metoprolol Tartrate 25 MG Tablet PO ×2 (10:16→20:03)
[2021-04-26] MEDS: CHLORHEXIDINE GLUC 2% CLOTH 1 EACH TOWELETTE TOPICAL (10:17)
[2021-04-26] MEDS: Menthol/Lanolin/Calamine/Znox 113 GM Tube 1 APPLIC TOPICAL ×2 (10:17→20:01)
[2021-04-26] MEDS: Aspirin 81 MG TAB.CHEW PO (10:17)
[2021-04-26 11:21] LABS: Bedside Glucose 299 mg/dL (70-110)
[2021-04-26 12:40] LABS: Bedside Glucose 351 mg/dL (70-110)
[2021-04-26 12:57] LABS: Partial Thromboplast Time 45.9 Seconds (24.1-36.2)
[2021-04-26] MEDS: Heparin Injection (Vial) 5,000 UNIT/ML VIAL IV ×2 (13:47→21:25)
[2021-04-26] MEDS: guaiFENesin 10 ML UDC (200MG/10ML) 20 ML PO (17:01)
[2021-04-26] MEDS: Furosemide 40 MG/4 ML Vial IV (18:03)
[2021-04-26 18:20] LABS: Bedside Glucose 353 mg/dL (70-110)
[2021-04-26 20:20] LABS: Bedside Glucose 366 mg/dL (70-110)
[2021-04-26 20:34] LABS: Partial Thromboplast Time 53.4 Seconds (24.1-36.2)
[2021-04-27] VITALS (35 sets, daily range): BP systolic 89–206; BP diastolic 60–104; PULSE 76–112; RESP 12–42; TEMP 36.2–36.6; O2SAT 74–96
[2021-04-27 02:41] LABS: Partial Thromboplast Time 55.8 Seconds (24.1-36.2)
[2021-04-27] MEDS: HEPARIN/D5w 25,000 UNITS 25,000 UNITS/250 ML IV.SOLN. 14 UNITS IV (03:06)
[2021-04-27 05:25] LABS: ALB/GLOB Ratio 0.5 RATIO (0.9-2.4); AST(SGOT) 53 U/L (15-37); Alanine Aminotransfer ALT/SGPT 85 U/L (16-61); Albumin, Serum 2.4 g/dL (3.2-5.0); Alkaline Phosphatase 117 U/L (45-117); Anion Gap 9 (5-15); BUN 48 mg/dL (7-18); BUN/Creat Ratio 26.2 RATIO (10-20); Calcium,Total 8.7 mg/dL (8.5-10.1); Chloride 103 mmol/L (98-107); Creatinine, Serum 1.83 mg/dL (0.70-1.30); EST Glomerular Filtration Rate 39 mL/min (>60); Est Glom Filt Rate - Afr Amer 47 mL/min (>60); Estimated Creatinine Clearance 38.23 ml/min; Globulin 4.7 g/dL (2.2-4.2); Glucose 377 mg/dL (74-106); Potassium 4.4 mmol/L (3.5-5.1); Protein, Total 7.1 g/dL (6.4-8.2); Sodium Level 139 mmol/L (136-145)
[2021-04-27] MEDS: dilTIAZem 60 MG Tablet PO (05:27)
[2021-04-27] MEDS: Insulin Lispro 100 UNIT/ML INSULN.PEN SC ×4 (08:17→23:41)
[2021-04-27 08:40] LABS: Bedside Glucose 294 mg/dL (70-110)
[2021-04-27 09:53] LABS: Partial Thromboplast Time 53.7 Seconds (24.1-36.2)
--- NOTE | 2021-04-27 10:04 | PN.HOSP_ITS ---
Subjective Subjective Respiratory status has worsened overnight, overnight he was 90% on 100% FiO2 on BiPAP will likely need intubated later in the morning Objective Data Objective Data Vital Signs: Vital Signs Temp Pulse Resp BP Pulse Ox 97.4 F L 84 24 H 146/74 H 90 04/27/21 00:00 04/27/21 07:49 04/27/21 07:49 04/27/21 07:00 04/27/21 07:49 Oxygen Flow Rate (L/min) 60 Oxygen Delivery Method Airvo Weight: 279 lb 5.211 oz Body Mass Index (BMI) 41.9 Intake & Output: Intake and Output for Last 24 Hours 04/26/21 04/27/21 04/28/21 03:59 03:59 03:59 Intake Total 1324.92 / 1324.92 1101.28 / 1101.28 125 / 125 Output Total 200 / 200 1950 / 1950 750 / 750 Balance 1124.92 / 1124.92 -848.72 / -848.72 -625 / -625 Medical Nutrition Assessment Dietitian: Malnutrition Criteria Met Start: 04/25/21 10:11 Freq: Status: Active Protocol: Document 04/26/21 10:06 BP (Rec: 04/26/21 10:06 BP [id number]) Nutrition Malnutrition Evidence of Malnutrition Exists Yes Malnutrition (moderate): Acute Illness/Injury Evidenced By Suboptimal Energy Intake ( Severe),Weight Loss (Moderate) Intake Problem Inadequate Oral Intake Etiology r/t resp. failure, decreased appetite d/t acute illness Signs/Symptoms as evidenced by estimated PO intake meeting <50% of estimated nutritional needs x 5 days Status Active Problem Imbalance of Nutrients Etiology - Signs/Symptoms - Status Inactive Problem Clinical Problem Acute Disease or Injury Related Malnutrition Etiology moderate, acute malnutrition r /t inadequate energy intake d/ t resp. failure, decreased appetite Signs/Symptoms as evidenced by estimated PO intake meeting <50% of estimated nutritional needs x 5 days; unintentional wt loss of 5.5#/1.8% x 4 days Status Active Problem Altered Nutrient-Related Laboratory Values Etiology - Signs/Symptoms - Status Inactive Problem Recommendation Dietitian Recommendations/Changes Will provide regular diet, 120mL glucerna ONS w/ meals d/ t signs/symptoms of acute malnutrition. Lab / Micro Data Result Diagrams: 04/28/21 04:25 04/28/21 04:25 Labs: Laboratory Results - last 24 hr 04/26/21 06:41: POC Glucose 299 H 04/26/21 10:25: APTT Cancelled 04/26/21 12:18: POC Glucose 351 H 04/26/21 12:35: APTT 45.9 H 04/26/21 16:54: POC Glucose 353 H 04/26/21 19:59: POC Glucose 366 H 04/26/21 20:10: APTT 53.4 H 04/27/21 02:20: APTT 55.8 H 04/27/21 04:15: Sodium 139, Potassium 4.4, Chloride 103, Carbon Dioxide 27.0, A nion Gap 9, BUN 48 H, Creatinine 1.83 H, Estim Creat Clear Calc 38.23, Est GFR (MDRD) Af Amer 47 L, Est GFR (MDRD) Non-Af 39 L, BUN/Creatinine Ratio 26.2 H, Glucose 377 H, Calcium 8.7, Total Bilirubin 0.60, AST 53 H, ALT 85 H, Alkaline Phosphatase 117, Total Protein 7.1, Albumin 2.4 L, Globulin 4.7 H, Albumin/Globulin Ratio 0.5 L 04/27/21 08:10: POC Glucose 294 H 04/27/21 09:25: APTT 53.7 H Micro: Microbiology 04/24/21 16:00 Urine, Random Streptococcus pneumoniae Antigen (M - Final 04/21/21 16:35 Sputum, Expectorated/Coughed Gram Stain - Final 04/21/21 16:35 Sputum, Expectorated/Coughed Respiratory Culture - Final 04/21/21 19:51 Mucosa - Nasopharyngeal Respiratory Panel (PCR) - Final 04/21/21 19:05 Urine, Clean Catch Legionella Antigen - Final Rhythm Strip Rhythm Strip: A-fib Rate: 130 Ectopy: None Physical Exam Const alert and oriented x3 General Appearance: cooperative and ill appearing Positive for acutely HEENT normocephalic Mouth: dry mucous membranes Eyes PERRL, EOMs intact bilaterally and conjunctivae normal Neck supple and no JVD Resp normal respiratory effort, no retractions and no use of accessory muscles Auscultation: diminished lung sounds; Negative for crackles, rales, rhonchi or wheezes Cardio regular rate, regular rhythm, S1 normal heart sound, S2 normal heart sound and no murmurs GI soft to palpation, non-tender and non-distended; Negative for hepatosplenomegaly Extremity no clubbing, cyanosis or edema Skin no rashes or lesions noted Neuro no focal motor deficits and no sensory deficits noted Psych affect normal Appearance: appropriate Assessment & Plan Assessment/Plan (1) Pneumonia due to COVID-19 virus: (2) Hypoxia: PLAN: 1. Acute hypoxic respiratory failure secondary to Covid pneumonia/PIPE on CKD 3 a/FARSHAD -He was started on Decadron on admission but did not qualify for remdesivir secondary to renal function which has worsened -We will monitor and hold off Lasix -He did have decline in respiratory status will likely need to be intubated later this morning as he is on his percent FiO2 on BiPAP and only satting in the low 90s -D-dimer was slightly elevated however CTA could not be performed secondary to renal function therefore we will continue with heparin drip 2. Paroxysmal a flutter/HTN/HLD/morbid obesity -Currently normal sinus and heart rate is controlled -Continue with heparin drip -Continue with statin therapy -Discussed lifestyle modifications, BMI 42.1 3. DM2 -Hold his oral hypoglycemics -We will place on long-acting and short acting insulin -Accu-Cheks AC at bedtime, will adjust as necessary 4. GERD -Stable -Continue PPI DVT: Heparin drip Charges/Coding Visit Charges Inpatient E&M: 82597 Subs Hosp L2
[2021-04-27] MEDS: Etomidate 20 MG/10 ML Vial IV (10:20)
[2021-04-27] MEDS: Propofol 10MG/Ml 1,000 MG/100 ML Bottle 7.6 MG CONT INF (10:22)
[2021-04-27] MEDS: 0.9% Saline Lock 10 ML Syringe IV (10:41)
--- NOTE | 2021-04-27 10:45 | PN.CC_ITS ---
Assessment & Plan Assessment/Plan (1) Hypoxia: (2) Pneumonia due to COVID-19 virus: PLAN: RECOMMENDATIONS: 1. Titrate PEEP and FiO2 to maintain saturations at or above 90%. 2. ABG in 1 hour 3. Continue Decadron to complete 10-day treatment course. 4. Continue empiric antimicrobials. 5. Continue baricitinib per ID recommendations. 6. Continue heparin infusion for now. 7. Increase Lantus IMPRESSIONS: 1. Acute hypoxemic respiratory failure secondary to COVID-19 pneumonia The patient has had worsening in his oxygenation status following admission to the hospital on April 21. The patient ultimately had to be peguero sferred to the medical intensive care unit on April 24 and is currently requiring BiPAP with an FiO2 requirement of 100%. The patient was deemed to be outside of the window for remdesivir and was initiated on Decadron. The patient did have a mildly elevated D-dimer. However, CTA chest was unable to be completed. Therefore, the patient was started on a continuous heparin infusion, which will be continued. Patient subsequently required intubation on 04/27/2021. Underlying renal dysfunction would preclude the use of diuretics at this time. Patient will be continued on Airvo for now. FiO2 will be weaned for saturations greater than 90%. The patient will remain on Decadron and baricitin ib as ordered. 2. Paroxysmal atrial flutter Echocardiogram was unremarkable. Continue current medical management. Fully anticoagulated 3. Acute on chronic kidney disease Likely prerenal in etiology and related to acute presentation. Creatinine is slightly increased. We will continue to monitor urine output. No current indication for renal replacement therapy. 4. Morbid obesity/history of FARSHAD/diabetes mellitus/hyp ertension/hyperlipidemia Complicates care, management, recovery and prognosis. Continue home medications as indicated. TIME: 33 minutes critical care time spent addressing patient's acute hypoxic respiratory failure, acute kidney injury, diabetes mellitus, hypertension, review of all data and collaboration with care team (9:45 AM to 10:45 AM) Subjective Subjective Patient with significant difficulty overnight with saturations. Patient required BiPAP at 100%, but this was discontinued this morning secondary to intolerance and dry mouth. Attempted to delay intubation so the family can arrive, but at approximately 10 AM we were notified that they would not be able to make it. Patient was therefore intubated. Objective Data Objective Data Intubation Indication: Hypoxia Consent was obtained from: Verbal from patient The patient was placed in the appropriate sniffing position. Preoxygenated sedation via 10 AM was provided for a minimum of 3 minutes. The patient had continuous cardiac as well as pulse oximetry monitoring during the procedure. Procedure sedation was provided by the administration of etomidate 20 mg, but patient continued to have clenching of his jaw. Patient was subsequently given 100 of succinylcholine. Direct laryngoscopy was then performed using a number MAC 4 blade, which revealed a grade 1 view. A 8 mm endotracheal tube was visual ized advancing between the cords to the level of 24 cm at the lip. The stylette was then removed and discarded. Tube placement was confirmed by fogging in the tube along with equal and bilateral breath sounds. Colorimetric change was visualized on the CO2 meter. The cuff was then inflated and the tube secured using a commercially available device. A good pulse oximetry waveform was seen on the monitor throughout the procedure. A portable chest x-ray has been ordered to confirm appropriate placement. The patient tolerated the procedure well. Vital Signs: Vital Signs Temp Pulse Resp BP Pulse Ox 36.3 C L 84 24 H 146/74 H 90 04/27/21 00:00 04/27/21 07:49 04/27/21 07:49 04/27/21 07:00 04/27/21 07:49 Oxygen Flow Rate (L/min) 60 Oxygen Delivery Method Airvo Weight: 126.7 kg Body Mass Index (BMI) 41.9 Intake & Output: Intake and Output for Last 24 Hours 04/25/21 04/26/21 04/27/21 23:59 23:59 23:59 Intake Total 1274.92 / 1274.92 436.50 / 1036.50 839.78 / 839.78 Output Total 200 / 200 750 / 1950 1950 / 1950 Balance 1074.92 / 1074.92 -313.50 / -913.50 -1110.22 / -1110.22 Medical Nutrition Assessment Dietitian: Malnutrition Criteria Met Start: 04/25/21 10:11 Freq: Status: Active Protocol: Document 04/26/21 10:06 BP (Rec: 04/26/21 10:06 BP [id number]) Nutrition Malnutrition Evidence of Malnutrition Exists Yes Malnutrition (moderate): Acute Illness/Injury Evidenced By Suboptimal Energy Intake ( Severe),Weight Loss (Moderate) Intake Problem Inadequate Oral Intake Etiology r/t resp. failure, decreased appetite d/t acute illness Signs/Symptoms as evidenced by estimated PO intake meeting <50% of estimated nutritional needs x 5 days Status Active Problem Imbalance of Nutrients Etiology - Signs/Symptoms - Status Inactive Problem Clinical Problem Acute Disease or Injury Related Malnutrition Etiology moderate, acute malnutrition r /t inadequate energy intake d/ t resp. failure, decreased appetite Signs/Symptoms as evidenced by estimated PO intake meeting <50% of estimated nutritional needs x 5 days; unintentional wt loss of 5.5#/1.8% x 4 days Status Active Problem Altered Nutrient-Related Laboratory Values Etiology - Signs/Symptoms - Status Inactive Problem Recommendation Dietitian Recommendations/Changes Will provide regular diet, 120mL glucerna ONS w/ meals d/ t signs/symptoms of acute malnutrition. Lab / Micro Data Result Diagrams: 04/26/21 03:40 04/27/21 04:15 Labs: Laboratory Results - last 24 hr 04/26/21 06:41: POC Glucose 299 H 04/26/21 10:25: APTT Cancelled 04/26/21 12:18: POC Glucose 351 H 04/26/21 12:35: APTT 45.9 H 04/26/21 16:54: POC Glucose 353 H 04/26/21 19:59: POC Glucose 366 H 04/26/21 20:10: APTT 53.4 H 04/27/21 02:20: APTT 55.8 H 04/27/21 04:15: Sodium 139, Potassium 4.4, Chloride 103, Carbon Dioxide 27.0, Anion Gap 9, BUN 48 H, Creatinine 1.83 H, Estim Creat Clear Calc 38.23, Est GFR (MDRD) Af Amer 47 L, Est GFR (MDRD) Non-Af 39 L, BUN/Creatinine Ratio 26.2 H, Glucose 377 H, Calcium 8.7, Total Bilirubin 0.60, AST 53 H, ALT 85 H, Alkaline Phosphatase 117, Total Protein 7.1, Albumin 2.4 L, Globulin 4.7 H, Albumin/Globulin Ratio 0.5 L 04/27/21 08:10: POC Glucose 294 H 04/27/21 09:25: APTT 53.7 H Micro: Microbiology 04/24/21 16:00 Urine, Random Streptococcus pneumoniae Antigen (M - Final 04/21/21 16:35 Sputum, Expectorated/Coughed Gram Stain - Final 04/21/21 16:35 Sputum, Expectorated/Coughed Respiratory Culture - Final 04/21/21 19:51 Mucosa - Nasopharyngeal Respiratory Panel (PCR) - Final 04/21/21 19:05 Urine, Clean Catch Legionella Antigen - Final Rhythm Strip Rhythm Strip: A-fib Rate: 130 Ectopy: None Physical Exam Const Constitutional Narrative: Poor vent synchrony. RASS +1 General Appearance: ill appearing, intubated and patient mechanically ventilated Nutritional Appearance: morbidly obese HEENT normocephalic and head/scalp atraumatic Eyes PERRL, EOMs intact bilaterally and conjunctivae normal Neck supple General: trachea midline Chest inspection of chest normal Chest: symmetrical chest wall rise; Negative for crepitus Resp Auscultation: rales and diminished lung sounds; Negative for rhonchi or wheezes Cardio regular rate, regular rhythm, S1 normal heart sound, S2 normal heart sound, no murmurs, no rub and no gallops GI normal to inspection, nondistended, normoactive bowel sounds Extremity no clubbing, cyanosis or edema Skin no rashes or lesions noted Neuro CN's II-XII intact bilaterally, moves all extremities and no focal motor deficits Sensorium / Orientation: sedated on vent RASS: +1 Psych Psych Narrative: Intubated and sedated Charges/Coding Procedures Hospitalists Procedures: [id number] Critial Care 1st Hr
--- NOTE | 2021-04-27 10:50 | RAD_ITS ---
STUDY: X-RAY CHEST REASON FOR EXAM: Male, 71 years old. Intubation and ng placement TECHNIQUE: Single AP portable view of the chest. COMPARISON: Comparison is made with prior study dated 04/24/2021. FINDINGS: An endotracheal tube is in situ. The tip is at 4.1 cm proximal to the nisreen. EKG electrodes are seen. The tip of the NG tube is seen within the body of the stomach. Persistent bilateral pulmonary infiltrates worse in the left hemithorax. There has been a moderate degree of improvement as compared to prior study. There is no demonstrated pleural abnormality. Normal size heart. Normal mediastinum and bill. Normal visualized pulmonary arteries. Normal visualized aortic arch and descending thoracic aorta. There are diffuse degenerative changes of the visualized thoracic spine. Normal visualized ribs, clavicles, and shoulders. There is no demonstrated abnormality of the visualized soft tissue structures of the upper abdomen. RAD/Chest 1 View (Portable) IMPRESSION: The tip of the endotracheal tube is at 4.1 cm proximal to the nisreen. Persistent bilateral pulmonary infiltrates worse on the left side although there has been a moderate degree of improvement as compared to prior study. Electronically Signed: Jamison Darby MD at 11:05 EDT , Service support ,
[2021-04-27] MEDS: Heparin Injection (Vial) 5,000 UNIT/ML VIAL IV (10:54)
[2021-04-27 11:01] LABS: Allen Test Positive; Base Excess -2 mmol/L (-2 to +2); Bicarbonate 23.6 mmol/L (22-26); Blood Gas Specimen Type ART; FI02 100; Mode AC; O2 Delivery Device Adult Vent; PEEP 14; PO2 50 mmHG (75-100); RR 12; SITE L Radial; SO2 83 % (95-99); Total Carbon Dioxide 25 mmol/L; Vt 450; pCO2 44.2 mmHg (35-45); pH 7.34 (7.35-7.45)
[2021-04-27 11:36] LABS: CPK Total, Creatine Kinase 371 U/L (39-308); Triglycerides 174 mg/dL
[2021-04-27] MEDS: Atorvastatin Calcium 20 MG Tablet GT (12:11)
[2021-04-27] MEDS: Loratadine 10 MG Tablet GT (12:11)
[2021-04-27] MEDS: Aspirin 81 MG TAB.CHEW GT (12:11)
[2021-04-27] MEDS: dexAMETHasone 4 MG/ML Vial 6 MG IV (12:11)
[2021-04-27] MEDS: dilTIAZem 60 MG Tablet GT ×2 (12:11→17:57)
[2021-04-27] MEDS: Menthol/Lanolin/Calamine/Znox 113 GM Tube 1 APPLIC TOPICAL (12:12)
[2021-04-27] MEDS: CHLORHEXIDINE GLUC 2% CLOTH 1 EACH TOWELETTE TOPICAL (12:12)
[2021-04-27] MEDS: Chlorhexidine 15 ML PO ×2 (12:42→21:02)
[2021-04-27 12:51] LABS: Pathologist Review Reviewed
[2021-04-27 12:58] LABS: Pathologist Review Reviewed
[2021-04-27 13:08] LABS: Pathologist Review Reviewed
--- NOTE | 2021-04-27 13:50 | PCM.PN.ID ---
Physical Exam Narrative On vent, no fever Const no apparent distress Resp Effort and Inspection: mechanically ventilated Auscultation: diminished lung sounds Cardio regular rate and regular rhythm GI normal to inspection, nondistended, normoactive bowel sounds Skin no rashes or lesions noted ID ID: Route of nutrition/ use of supplements: [] Nutritional Intake: [] IV Site: [] Bridges Catheter: [] Assessment & Plan Assessment/Plan (1) Pneumonia due to COVID-19 virus: PLAN: Sx started 04/14. Unvaccinated. Got monoclonal Ab 04/22. Recommend isolation for 20 days from 04/14. Recommend vaccine once out of iso. On dex. Cont baricitinib. On vent, on zosyn. Sputum cx pending. PIPE improved. Will follow (2) Hypoxia:
[2021-04-27 14:06] LABS: Bedside Glucose 317 mg/dL (70-110)
[2021-04-27] MEDS: Propofol 10MG/Ml 1,000 MG/100 ML Bottle 30.4 MG CONT INF ×3 (14:12→20:52)
[2021-04-27 15:07] LABS: Partial Thromboplast Time 72.4 Seconds (24.1-36.2)
[2021-04-27] MEDS: Lidocaine Jelly 2% 20 ML Syringe (URO-JET) 20 APPLIC TOPICAL (16:14)
[2021-04-27 17:15] LABS: Allen Test Positive; Base Excess 0 mmol/L (-2 to +2); Bicarbonate 24.9 mmol/L (22-26); Blood Gas Specimen Type ART; FI02 95; Mode BiLevel; O2 Delivery Device Adult Vent; PO2 67 mmHG (75-100); RR 12; SITE L Radial; SO2 93 % (95-99); Total Carbon Dioxide 26 mmol/L; pCO2 41.9 mmHg (35-45); pH 7.38 (7.35-7.45)
[2021-04-27] MEDS: Vital AF 1.2 Cal Liquid 1,000 ML 20 ML GT (17:57)
[2021-04-27 18:20] LABS: Bedside Glucose 298 mg/dL (70-110)
[2021-04-27] MEDS: HEPARIN/D5w 25,000 UNITS 25,000 UNITS/250 ML IV.SOLN. 15 UNITS IV (20:32)
[2021-04-28] VITALS (34 sets, daily range): BP systolic 85–121; BP diastolic 59–75; PULSE 72–105; RESP 12–28; TEMP 35.6–36.2; O2SAT 89–97
[2021-04-28] MEDS: Propofol 10MG/Ml 1,000 MG/100 ML Bottle 30.4 MG CONT INF (00:10)
[2021-04-28 00:14] LABS: Partial Thromboplast Time 96.5 Seconds (24.1-36.2)
[2021-04-28] MEDS: dilTIAZem 60 MG Tablet GT ×4 (01:45→16:58)
[2021-04-28 02:16] LABS: Bedside Glucose 336 mg/dL (70-110)
[2021-04-28] MEDS: Propofol 10MG/Ml 1,000 MG/100 ML Bottle 26.6 MG CONT INF (03:45)
[2021-04-28 04:46] LABS: Hematocrit 30.6 % (40-54); Hemoglobin 9.9 g/dL (13.0-16.5); Mean Corp Hgb Conc 32.4 g/dL (32-36); Mean Corpuscular Hgb 28.3 pg (27.0-32.0); Mean Corpuscular Volume 87.4 fL (80-94); Mean Platelet Vol. 9.9 fl (6.2-12.0); POSITIVE COUNT YES; POSITIVE MORPHOLOGY YES; Platelet Count 297 K/mm3 (150-450); RBC Distribution Width CV 14.1 % (11.6-14.6); RBC Distribution Width SD 45.3 fl (35.1-43.9); White Blood Count 9.1 K/mm3 (4.4-11.0)
[2021-04-28 04:48] LABS: Differential Indicated MANUAL DIFF
[2021-04-28 05:07] LABS: ALB/GLOB Ratio 0.5 RATIO (0.9-2.4); AST(SGOT) 43 U/L (15-37); Alanine Aminotransfer ALT/SGPT 76 U/L (16-61); Albumin, Serum 2.1 g/dL (3.2-5.0); Alkaline Phosphatase 100 U/L (45-117); Anion Gap 13 (5-15); BUN 74 mg/dL (7-18); BUN/Creat Ratio 24.7 RATIO (10-20); Calcium,Total 8.2 mg/dL (8.5-10.1); Chloride 101 mmol/L (98-107); EST Glomerular Filtration Rate 22 mL/min (>60); Est Glom Filt Rate - Afr Amer 27 mL/min (>60); Estimated Creatinine Clearance 23.32 ml/min; Globulin 4.5 g/dL (2.2-4.2); Glucose 353 mg/dL (74-106); Potassium 5.3 mmol/L (3.5-5.1); Protein, Total 6.6 g/dL (6.4-8.2); Sodium Level 138 mmol/L (136-145)
[2021-04-28 05:11] LABS: Lymphocyte 8 % (19-41); Metamyelocyte 4 % (0-1); Monocyte 2 % (0-10); Myelocyte 4 % (0-0); Neutrophil-Band 1 % (0-5); Neutrophil-Segmented 81 % (47-70); Nucleated Red Bld Cells,Manual 1 % (0-5); Platelet Estimate ADEQUATE (ADEQ); Red Cell Morphology NORM C+C NORMAL (NORM C&C); Total Cells Counted 100 (MANUAL DIFF)
[2021-04-28 05:12] LABS: Absolute Lymphocyte Count 0.72 X10^3/uL (0.83-4.51); Absolute Neutrophil Count 7.4 X10^3/uL (2.0-7.7); Lymphocyte # 0.72 X10^3/ul (0.83-4.51); Neutrophil # 7.43 X10^3/uL (2.7-7.7)
[2021-04-28 05:21] LABS: Allen Test Positive; Base Excess -3 mmol/L (-2 to +2); Bicarbonate 23.1 mmol/L (22-26); Blood Gas Specimen Type ART; FI02 100; Mode BiLevel; O2 Delivery Device Adult Vent; PO2 69 mmHG (75-100); RR 12; SITE R Radial; SO2 92 % (95-99); Total Carbon Dioxide 24 mmol/L; pCO2 43.8 mmHg (35-45); pH 7.33 (7.35-7.45)
[2021-04-28] MEDS: Insulin Lispro 100 UNIT/ML INSULN.PEN SC ×3 (06:32→16:58)
[2021-04-28 06:51] LABS: Bedside Glucose 323 mg/dL (70-110)
--- NOTE | 2021-04-28 06:57 | US_ITS ---
STUDY: RENAL ULTRASOUND - COMPLETE REASON FOR EXAM: Male, 71 years old. Dysuria/canales issues TECHNIQUE: Ultrasound evaluation of the kidneys was performed with real-time and static merchant-scale imaging. COMPARISON: None. FINDINGS: RIGHT KIDNEY: Normal location of the right kidney, which is normal in size. The right kidney measures 9.9 cm. There is a normal cortex of the right kidney. The renal cortex measures 1 cm. There is no right renal mass or cyst. There are no right renal calculi. There is no right hydronephrosis. DISTAL RIGHT URETER: There is non-visualization of the distal right ureter. There is no demonstrated right ureterovesical junction calculus. There is no demonstrated right ureteral jet. LEFT KIDNEY: Normal location of the left kidney, which is normal in size. The left kidney measures 10.8 cm. There is a normal cortex of the left kidney. The renal cortex measures 1.4 cm. There is no left renal mass or cyst. There are no left renal calculi. There is no left hydronephrosis. DISTAL LEFT URETER: There is non-visualization of the distal left ureter. There is no demonstrated left ureterovesical junction calculus. There is no demonstrated left ureteral jet. AORTA: There is obscuration of the abdominal aorta by overlying bowel gas I.V.C.: The IVC is obscured. BLADDER: There is a Canales balloon catheter in the urinary bladder. US/Kidney and Bladder IMPRESSION: No acute findings. Electronically Signed: Rasheed Rivera MD at 16:05 EDT , Service support ,
--- NOTE | 2021-04-28 07:52 | PCM.PN.INT ---
Assessment & Plan Assessment/Plan (1) Hypoxia: (2) Pneumonia due to COVID-19 virus: PLAN: RECOMMENDATIONS: 1. Titrate P high and FiO2 to maintain saturations at or above 90%. 2. Hold on Lasix challenge given elevated creatinine 3. Continue Decadron to complete 10-day treatment course. 4. Continue empiric antimicrobials. 5. Continue baricitinib per ID recommendations. 6. Continue heparin infusion for now. 7. Increase Lantus IMPRESSIONS: 1. Acute hypoxemic respiratory failure secondary to COVID-19 pneumonia The patient has had worsening in his oxygenation status following admission to the hospital on April 21. The patient ultimately had to be transferred to the medical intensive care unit on April 24 and is currently requiring BiPAP with an FiO2 requirement of 100%. The patient was deemed to be outside of the window for remdesivir and was initiated on Decadron. The patient did have a mildly elevated D-dimer. However, CTA chest was unable to be completed. Therefore, the patient was started on a continuous heparin infusion, which will be continued. Patient subsequently required intubation on 04/27/2021. Underlying renal dysfunction would preclude the use of diuretics at this time. Patient now on APRV to maintain saturations. Will attempt to wean P high in FiO2 as tolerated. 2. Paroxysmal atrial flutter Echocardiogram was unremarkable. Continue current medical management. Fully anticoagulated 3. Acute on chronic kidney disease Likely prerenal in etiology and related to acute presentation. Creatinine is slightly increased. We will continue to monitor urine output. No current indication for renal replacement therapy. Possibly consult nephrology tomorrow if not improving. Will obtain a renal ultrasound today. 4. Morbid obesity/history of FARSHAD/diabetes mellitus/hypertension/hyperlipidemia Complicates care, management, recovery and prognosis. Continue home medications as indicated. TIME: 35 minutes critical care time spent addressing patient's acute hypoxic respiratory failure, acute kidney injury, diabetes mellitus, hypertension, review of all data and collaboration with care team (6:30 AM to 7:30 AM) Subjective Subjective Patient did okay overnight. Patient did have significant hematuria after Bridges insertion yesterday, but this was improved after it was replaced. Patient has had decreased urine output overnight. Patient's blood sugars are also noted to be elevated. Patient did have some mild blood on suctioning. Hypoxia after intubation required to transition to APRV, but patient has tolerated thus far. Objective Data Objective Data Vital Signs: Vital Signs Temp Pulse Resp BP Pulse Ox 35.9 C L 78 14 105/71 93 04/28/21 00:00 04/28/21 07:11 04/28/21 07:11 04/28/21 07:00 04/28/21 07:11 Oxygen Flow Rate (L/min) 60 Oxygen Delivery Method Mechanical Ventilator Weight: 127.4 kg Body Mass Index (BMI) 41.9 Intake & Output: Intake and Output for Last 24 Hours 04/26/21 04/27/21 04/28/21 23:59 23:59 23:59 Intake Total 436.50 / 1036.50 2054.38 / 2099.78 721.60 / 721.60 Output Total 750 / 1950 2600 / 2600 100 / 100 Balance -313.50 / -913.50 -545.62 / -500.22 621.60 / 621.60 Medical Nutrition Assessment Dietitian: Malnutrition Criteria Met Start: 04/25/21 10:11 Freq: Status: Active Protocol: Document 04/27/21 11:39 [facility] (Rec: 04/27/21 11:39 [facility] [id number]) Nutrition Malnutrition Evidence of Malnutrition Exists Yes Malnutrition (moderate): Acute Illness/Injury Evidenced By Suboptimal Energy Intake ( Severe),Weight Loss (Moderate) Intake Problem Inadequate Oral Intake Etiology r/t resp. failure, decreased appetite d/t acute illness and plans for intubation Signs/Symptoms as evidenced by estimated PO intake meeting <50% of estimated nutritional needs x 5 days Status Active Problem Imbalance of Nutrients Etiology - Signs/Symptoms - Status Inactive Problem Clinical Problem Acute Disease or Injury Related Malnutrition Etiology moderate, acute malnutrition r /t inadequate energy intake d/ t resp. failure, decreased appetite, and plans for intubation Signs/Symptoms as evidenced by estimated PO intake meeting <50% of estimated nutritional needs x 5 days; unintentional wt loss of >2% x < 5 days Status Active Problem Altered Nutrient-Related Laboratory Values Etiology related to endocrine dysfunction and steroid administration Signs/Symptoms as evidenced by gluc 377 Status Active Problem Recommendation Dietitian Recommendations/Changes Change pt to NPO d/t intubation Rec Vital AF 1.2 at goal rate 60 ml/hr with 100 ml free water every 4 hours to provide ~ 1728 sawyer/ 108 gm pro/ 1767 ml free water/day. Would start at 20 ml/hr and increase by 20 ml/hr every 8-10 hrs as pt tolerates until goal rate achieved. Lab / Micro Data Result Diagrams: 04/28/21 04:25 04/28/21 04:25 Labs: Laboratory Results - last 24 hr 04/24/21 09:03: Diff Path Review Reviewed 04/25/21 20:40: Diff Path Review Reviewed 04/26/21 03:40: Diff Path Review Reviewed 04/27/21 04:15: Total Creatine Kinase 371 H, Triglycerides 174 04/27/21 08:10: POC Glucose 294 H 04/27/21 09:25: APTT 53.7 H 04/27/21 12:22: POC Glucose 317 H 04/27/21 14:45: APTT 72.4 H 04/27/21 17:50: POC Glucose 298 H 04/27/21 22:40: APTT 96.5 H* 04/27/21 23:40: POC Glucose 336 H 04/28/21 04:25: WBC 9.1, RBC 3.50 L, Hgb 9.9 L, Hct 30.6 L, MCV 87.4, MCH 28.3, MCHC 32.4, RDW Std Deviation 45.3 H, RDW Coeff of Damion 14.1, Plt Count 297, MPV 9.9, Neut % (Auto) Not Reportable, Absolute Neuts (auto) 7.4, Absolute Lymphs (auto) 0.72 L, Total Counted 100, Neutrophils % (Manual) 81 H, Band Neutrophils % 1, Lymphocytes % (Manual) 8 L, Monocytes % (Manual) 2, Metamyelocytes % 4 H, Myelocytes % 4 H, Nucleated RBCs/100 WBC 1, Diff Path Review May foll, Platelet Estimate ADEQUATE, RBC Morphology NORM C+C 04/28/21 04:25: Sodium 138, Potassium 5.3 H, Chloride 101, Carbon Dioxide 24.0, Anion Gap 13, BUN 74 H, Creatinine 3.00 H, Estim Creat Clear Calc 23.32, Est GFR (MDRD) Af Amer 27 L, Est GFR (MDRD) Non-Af 22 L, BUN/Creatinine Ratio 24.7 H, Glucose 353 H, Calcium 8.2 L, Total Bilirubin 0.50, AST 43 H, ALT 76 H, Alkaline Phosphatase 100, Total Protein 6.6, Albumin 2.1 L, Globulin 4.5 H, Albumin/Globulin Ratio 0.5 L 04/28/21 06:32: POC Glucose 323 H Micro: Microbiology 04/27/21 10:30 Sputum, Induced/Lukens Gram Stain - Final 04/24/21 16:00 Urine, Random Streptococcus pneumoniae Antigen (M - Final 04/21/21 16:35 Sputum, Expectorated/Coughed Gram Stain - Final 04/21/21 16:35 Sputum, Expectorated/Coughed Respiratory Culture - Final 04/21/21 19:51 Mucosa - Nasopharyngeal Respiratory Panel (PCR) - Final 04/21/21 19:05 Urine, Clean Catch Legionella Antigen - Final ABG Data ABG results: ABG 04/27/21 04/27/21 04/28/21 10:53 17:06 05:17 Specimen Type ART ART ART Sample Site L Radial L Radial R Radial pH 7.34 L 7.38 7.33 L Bicarbonate Actual 23.6 24.9 23.1 Total CO2 25 26 24 Base Excess -2 0 -3 L O2 Saturation 83 L 93 L 92 L O2 % 100 95 100 ABG pCO2 44.2 41.9 43.8 ABG pO2 50 L 67 L 69 L Murphy Test Positive Positive Positive Respiration Rate 12 12 12 O2 Delivery Device Adult Vent Adult Vent Adult Vent Vent Mode AC BiLevel BiLevel Tidal Volume 450 POC PEEP 14 Clinical Comments Radiography Diagnostic Testing: Radiology Impression Chest X-Ray 04/27/21 10:50 IMPRESSION: The tip of the endotracheal tube is at 4.1 cm proximal to the nisreen. Persistent bilateral pulmonary infiltrates worse on the left side although there has been a moderate degree of improvement as compared to prior study. Electronically Signed: Jamison Darby MD at 11:05 EDT , Service support , Rhythm Strip Rhythm Strip: A-fib Rate: 130 Ectopy: None Physical Exam Const Constitutional Narrative: Fair vent synchrony. RASS -1 General Appearance: ill appearing, intubated and patient mechanically ventilated Nutritional Appearance: morbidly obese HEENT normocephalic and head/scalp atraumatic Eyes PERRL, EOMs intact bilaterally and conjunctivae normal Neck supple General: trachea midline Chest inspection of chest normal Chest: symmetrical chest wall rise; Negative for crepitus Resp Auscultation: rales and diminished lung sounds; Negative for rhonchi or wheezes Cardio regular rate, regular rhythm, S1 normal heart sound, S2 normal heart sound, no murmurs, no rub and no gallops GI normal to inspection, nondistended, normoactive bowel sounds Extremity no clubbing, cyanosis or edema Skin no rashes or lesions noted Neuro CN's II-XII intact bilaterally, moves all extremities and no focal motor deficits Sensorium / Orientation: sedated on vent RASS: +1 Psych Psych Narrative: Intubated and sedated Charges/Coding Procedures Hospitalists Procedures: 39329 Critial Care 1st Hr
--- NOTE | 2021-04-28 07:53 | PCM.PN.HOSP ---
Subjective Subjective Intubated and sedated Objective Data Objective Data Vital Signs: Vital Signs Temp Pulse Resp BP Pulse Ox 96.6 F L 78 14 105/71 93 04/28/21 00:00 04/28/21 07:11 04/28/21 07:11 04/28/21 07:00 04/28/21 07:11 Oxygen Flow Rate (L/min) 60 Oxygen Delivery Method Mechanical Ventilator Weight: 280 lb 13.903 oz Body Mass Index (BMI) 41.9 Intake & Output: Intake and Output for Last 24 Hours 04/27/21 04/28/21 04/29/21 03:59 03:59 03:59 Intake Total 1101.28 / 1101.28 1643.50 / 1657.90 417.70 / 417.70 Output Total 1950 / 1950 1400 / 1400 100 / 100 Balance -848.72 / -848.72 243.50 / 257.90 317.70 / 317.70 Medical Nutrition Assessment Dietitian: Malnutrition Criteria Met Start: 04/25/21 10:11 Freq: Status: Active Protocol: Document 04/27/21 11:39 [facility] (Rec: 04/27/21 11:39 [facility] [id number]) Nutrition Malnutrition Evidence of Malnutrition Exists Yes Malnutrition (moderate): Acute Illness/Injury Evidenced By Suboptimal Energy Intake ( Severe),Weight Loss (Moderate) Intake Problem Inadequate Oral Intake Etiology r/t resp. failure, decreased appetite d/t acute illness and plans for intubation Signs/Symptoms as evidenced by estimated PO intake meeting <50% of estimated nutritional needs x 5 days Status Active Problem Imbalance of Nutrients Etiology - Signs/Symptoms - Status Inactive Problem Clinical Problem Acute Disease or Injury Related Malnutrition Etiology moderate, acute malnutrition r /t inadequate energy intake d/ t resp. failure, decreased appetite, and plans for intubation Signs/Symptoms as evidenced by estimated PO intake meeting <50% of estimated nutritional needs x 5 days; unintentional wt loss of >2% x < 5 days Status Active Problem Altered Nutrient-Related Laboratory Values Etiology related to endocrine dysfunction and steroid administration Signs/Symptoms as evidenced by gluc 377 Status Active Problem Recommendation Dietitian Recommendations/Changes Change pt to NPO d/t intubation Rec Vital AF 1.2 at goal rate 60 ml/hr with 100 ml free water every 4 hours to provide ~ 1728 sawyer/ 108 gm pro/ 1767 ml free water/day. Would start at 20 ml/hr and increase by 20 ml/hr every 8-10 hrs as pt tolerates until goal rate achieved. Lab / Micro Data Result Diagrams: 04/28/21 04:25 04/28/21 04:25 Labs: Laboratory Results - last 24 hr 04/24/21 09:03: Diff Path Review Reviewed 04/25/21 20:40: Diff Path Review Reviewed 04/26/21 03:40: Diff Path Review Reviewed 04/27/21 04:15: Total Creatine Kinase 371 H, Triglycerides 174 04/27/21 08:10: POC Glucose 294 H 04/27/21 09:25: APTT 53.7 H 04/27/21 12:22: POC Glucose 317 H 04/27/21 14:45: APTT 72.4 H 04/27/21 17:50: POC Glucose 298 H 04/27/21 22:40: APTT 96.5 H* 04/27/21 23:40: POC Glucose 336 H 04/28/21 04:25: WBC 9.1, RBC 3.50 L, Hgb 9.9 L, Hct 30.6 L, MCV 87.4, MCH 28.3, MCHC 32.4, RDW Std Deviation 45.3 H, RDW Coeff of Damion 14.1, Plt Count 297, MPV 9.9, Neut % (Auto) Not Reportable, Absolute Neuts (auto) 7.4, Absolute Lymphs (auto) 0.72 L, Total Counted 100, Neutrophils % (Manual) 81 H, Band Neutrophils % 1, Lymphocytes % (Manual) 8 L, Monocytes % (Manual) 2, Metamyelocytes % 4 H, Myelocytes % 4 H, Nucleated RBCs/100 WBC 1, Diff Path Review May , Platelet Estimate ADEQUATE, RBC Morphology NORM C+C 04/28/21 04:25: Sodium 138, Potassium 5.3 H, Chloride 101, Carbon Dioxide 24.0, Anion Gap 13, BUN 74 H, Creatinine 3.00 H, Estim Creat Clear Calc 23.32, Est GFR (MDRD) Af Amer 27 L, Est GFR (MDRD) Non-Af 22 L, BUN/Creatinine Ratio 24.7 H, Glucose 353 H, Calcium 8.2 L, Total Bilirubin 0.50, AST 43 H, ALT 76 H, Alkaline Phosphatase 100, Total Protein 6.6, Albumin 2.1 L, Globulin 4.5 H, Albumin/Globulin Ratio 0.5 L 04/28/21 06:32: POC Glucose 323 H Micro: Microbiology 04/27/21 10:30 Sputum, Induced/Lukens Gram Stain - Final 04/24/21 16:00 Urine, Random Streptococcus pneumoniae Antigen (M - Final 04/21/21 16:35 Sputum, Expectorated/Coughed Gram Stain - Final 04/21/21 16:35 Sputum, Expectorated/Coughed Respiratory Culture - Final 04/21/21 19:51 Mucosa - Nasopharyngeal Respiratory Panel (PCR) - Final 04/21/21 19:05 Urine, Clean Catch Legionella Antigen - Final ABG Data ABG results: ABG 04/27/21 04/27/21 04/28/21 10:53 17:06 05:17 Specimen Type ART ART ART Sample Site L Radial L Radial R Radial pH 7.34 L 7.38 7.33 L Bicarbonate Actual 23.6 24.9 23.1 Total CO2 25 26 24 Base Excess -2 0 -3 L O2 Saturation 83 L 93 L 92 L O2 % 100 95 100 ABG pCO2 44.2 41.9 43.8 ABG pO2 50 L 67 L 69 L Murphy Test Positive Positive Positive Respiration Rate 12 12 12 O2 Delivery Device Adult Vent Adult Vent Adult Vent Vent Mode AC BiLevel BiLevel Tidal Volume 450 POC PEEP 14 Clinical Comments Radiography Diagnostic Testing: Radiology Impression Chest X-Ray 04/27/21 10:50 IMPRESSION: The tip of the endotracheal tube is at 4.1 cm proximal to the nisreen. Persistent bilateral pulmonary infiltrates worse on the left side although there has been a moderate degree of improvement as compared to prior study. Electronically Signed: Jamison Darby MD at 11:05 EDT , Service support , Rhythm Strip Rhythm Strip: A-fib Rate: 130 Ectopy: None Physical Exam Const General Appearance: intubated and patient mechanically ventilated HEENT normocephalic and moist oral mucous membranes Eyes PERRL and conjunctivae normal Neck supple and no JVD Resp normal respiratory effort, no retractions and no use of accessory muscles Auscultation: diminished lung sounds; Negative for crackles, rales, rhonchi or wheezes Cardio regular rate, regular rhythm, S1 normal heart sound, S2 normal heart sound and no murmurs GI soft to palpation and non-distended; Negative for hepatosplenomegaly Extremity no clubbing, cyanosis or edema Skin no rashes or lesions noted Neuro Sensorium / Orientation: sedated on vent Psych Appearance: intubated Assessment & Plan Assessment/Plan (1) Pneumonia due to COVID-19 virus: (2) Hypoxia: PLAN: 1. Acute hypoxic respiratory failure secondary to Covid pneumonia/PIPE on CKD 3 a/FARSHAD -He was started on Decadron on admission but did not qualify for remdesivir secondary to renal function which has worsened -We will monitor and hold off Lasix -Intubated 04/27/2021 due to declining respiratory status -D-dimer was slightly elevated however CTA could not be performed secondary to renal function therefore we will continue with heparin drip 2. Paroxysmal a flutter/HTN/HLD/morbid obesity -Currently normal sinus and heart rate is controlled -Continue with heparin drip -Continue with statin therapy -Discussed lifestyle modifications, BMI 42.1 3. DM2 -Hold his oral hypoglycemics -We will place on long-acting and short acting insulin -Accu-Cheks AC at bedtime, will adjust as necessary 4. GERD -Stable -Continue PPI DVT: Heparin drip Charges/Coding Visit Charges Inpatient E&M: 01137 Subs Hosp L2
[2021-04-28] MEDS: Propofol 10MG/Ml 1,000 MG/100 ML Bottle 19 MG CONT INF (08:21)
[2021-04-28] MEDS: 0.9% Saline Lock 10 ML Syringe IV ×2 (08:22)
[2021-04-28] MEDS: Atorvastatin Calcium 20 MG Tablet GT (08:24)
[2021-04-28] MEDS: Loratadine 10 MG Tablet GT (08:24)
[2021-04-28] MEDS: Metoprolol Tartrate 25 MG Tablet GT ×2 (08:24→20:39)
[2021-04-28] MEDS: Aspirin 81 MG TAB.CHEW GT (08:24)
[2021-04-28] MEDS: dexAMETHasone 4 MG/ML Vial 6 MG IV (08:25)
[2021-04-28] MEDS: CHLORHEXIDINE GLUC 2% CLOTH 1 EACH TOWELETTE TOPICAL (08:26)
[2021-04-28] MEDS: Menthol/Lanolin/Calamine/Znox 113 GM Tube 1 APPLIC TOPICAL (08:26)
[2021-04-28] MEDS: Chlorhexidine 15 ML PO ×2 (08:27→20:41)
[2021-04-28 09:02] LABS: Partial Thromboplast Time 68.9 Seconds (24.1-36.2)
[2021-04-28] MEDS: Senna/Docusate Sodium 1 Tablet 2 TABLET GT ×2 (10:18→20:41)
--- NOTE | 2021-04-28 10:34 | PCM.PN.ID ---
Physical Exam Narrative On vent, no fever Const Constitutional Narrative: ill appearing Resp Auscultation: diminished lung sounds Cardio regular rate and regular rhythm GI normal to inspection, nondistended, normoactive bowel sounds Skin no rashes or lesions noted ID ID: Route of nutrition/ use of supplements: [] Nutritional Intake: [] IV Site: [] Bridges Catheter: [] Assessment & Plan Assessment/Plan (1) Pneumonia due to COVID-19 virus: PLAN: Sx started 04/14. Unvaccinated. Got monoclonal Ab 04/22. Recommend isolation for 20 days from 04/14. Recommend vaccine once out of iso. On dex. Worsening PIPE, will stop baricitinib. On vent, on zosyn. Decrease zosyn to q12h. Will follow (2) Hypoxia:
[2021-04-28] MEDS: Propofol 10MG/Ml 1,000 MG/100 ML Bottle 15.2 MG CONT INF ×2 (11:10→14:01)
[2021-04-28 12:11] LABS: Bedside Glucose 355 mg/dL (70-110)
[2021-04-28 13:28] LABS: Pathologist Review Reviewed
[2021-04-28 14:27] LABS: Partial Thromboplast Time 58.1 Seconds (24.1-36.2)
[2021-04-28] MEDS: HEPARIN/D5w 25,000 UNITS 25,000 UNITS/250 ML IV.SOLN. 12 UNITS IV (16:54)
[2021-04-28 17:20] LABS: Bedside Glucose 420 mg/dL (70-110)
[2021-04-28] MEDS: Propofol 10MG/Ml 1,000 MG/100 ML Bottle 25 MG CONT INF ×2 (20:00→23:36)
[2021-04-29] VITALS (34 sets, daily range): BP systolic 104–136; BP diastolic 64–85; PULSE 74–118; RESP 13–32; TEMP 36–36.6; O2SAT 90–96
[2021-04-29] MEDS: Menthol/Lanolin/Calamine/Znox 113 GM Tube 1 APPLIC TOPICAL ×2 (00:54→09:43)
[2021-04-29] MEDS: dilTIAZem 60 MG Tablet GT ×5 (00:55→22:21)
[2021-04-29] MEDS: Insulin Lispro 100 UNIT/ML INSULN.PEN 20 UNIT SC (01:11)
[2021-04-29 01:26] LABS: Bedside Glucose > 500 mg/dL (70-110)
[2021-04-29] MEDS: Propofol 10MG/Ml 1,000 MG/100 ML Bottle 25 MG CONT INF (04:00)
[2021-04-29 05:13] LABS: Hematocrit 30.2 % (40-54); Hemoglobin 9.9 g/dL (13.0-16.5); Mean Corp Hgb Conc 32.8 g/dL (32-36); Mean Corpuscular Hgb 28.6 pg (27.0-32.0); Mean Corpuscular Volume 87.3 fL (80-94); Mean Platelet Vol. 10.4 fl (6.2-12.0); POSITIVE COUNT YES; POSITIVE MORPHOLOGY YES; Platelet Count 354 K/mm3 (150-450); RBC Distribution Width CV 14.1 % (11.6-14.6); RBC Distribution Width SD 45.3 fl (35.1-43.9); Red Blood Count 3.46 M/mm3 (4.6-6.2); White Blood Count 11.2 K/mm3 (4.4-11.0)
[2021-04-29 05:26] LABS: Partial Thromboplast Time 54.5 Seconds (24.1-36.2)
[2021-04-29 05:31] LABS: Bedside Glucose > 500 mg/dL (70-110)
[2021-04-29 05:34] LABS: Differential Indicated MANUAL DIFF
[2021-04-29 05:37] LABS: ALB/GLOB Ratio 0.4 RATIO (0.9-2.4); AST(SGOT) 64 U/L (15-37); Alanine Aminotransfer ALT/SGPT 77 U/L (16-61); Alkaline Phosphatase 106 U/L (45-117); Anion Gap 10 (5-15); BUN 108 mg/dL (7-18); Calcium,Total 8.1 mg/dL (8.5-10.1); Chloride 99 mmol/L (98-107); Creatinine, Serum 3.09 mg/dL (0.70-1.30); EST Glomerular Filtration Rate 21 mL/min (>60); Est Glom Filt Rate - Afr Amer 26 mL/min (>60); Estimated Creatinine Clearance 22.64 ml/min; Globulin 4.7 g/dL (2.2-4.2); Glucose 542 mg/dL (74-106); Potassium 5.2 mmol/L (3.5-5.1); Protein, Total 6.7 g/dL (6.4-8.2); Sodium Level 133 mmol/L (136-145)
[2021-04-29 05:40] LABS: Allen Test Positive; Base Excess -5 mmol/L (-2 to +2); Bicarbonate 20.9 mmol/L (22-26); Blood Gas Specimen Type ART; FI02 75; Mode BiLevel; O2 Delivery Device ET Tube; PO2 64 mmHG (75-100); RR 12; SO2 90 % (95-99); Total Carbon Dioxide 22 mmol/L; pCO2 41.7 mmHg (35-45); pH 7.31 (7.35-7.45)
[2021-04-29 05:55] LABS: Lymphocyte 7 % (19-41); Metamyelocyte 5 % (0-1); Monocyte 3 % (0-10); Myelocyte 2 % (0-0); Neutrophil-Band 3 % (0-5); Neutrophil-Segmented 80 % (47-70); Platelet Estimate ADEQUATE (ADEQ); Total Cells Counted 100 (MANUAL DIFF)
[2021-04-29 05:56] LABS: Red Cell Morphology NORM C+C NORMAL (NORM C&C)
[2021-04-29 05:57] LABS: Absolute Lymphocyte Count 0.78 X10^3/uL (0.83-4.51); Absolute Neutrophil Count 9.3 X10^3/uL (2.0-7.7); Lymphocyte # 0.78 X10^3/ul (0.83-4.51)
[2021-04-29] MEDS: Vital AF 1.2 Cal Liquid 1,000 ML 60 ML GT ×2 (06:11→17:44)
[2021-04-29] MEDS: Insulin Lispro 100 UNIT/ML INSULN.PEN 30 UNIT SC ×3 (06:27→13:26)
[2021-04-29] MEDS: Insulin Lispro 100 UNIT/ML INSULN.PEN SC ×5 (06:28→22:22)
[2021-04-29] MEDS: Heparin Injection (Vial) 5,000 UNIT/ML VIAL IV ×2 (06:29→18:45)
--- NOTE | 2021-04-29 07:27 | PN.CC_ITS ---
Assessment & Plan Assessment/Plan (1) Hypoxia: (2) Pneumonia due to COVID-19 virus: PLAN: RECOMMENDATIONS: 1. Titrate down P high and tolerate higher FiO2 FiO2 to maintain saturations at or above 90%. 2. Hold on Lasix challenge given elevated creatinine. Consult nephrology 3. Continue Decadron to complete 10-day treatment course. 4. Continue empiric antimicrobials. 5. Continue baricitinib per ID recommendations. 6. Continue heparin infusion for now. 7. Increase Lantus. Aggressive sliding scale IMPRESSIONS: 1. Acute hypoxemic respiratory failure secondary to COVID-19 pneumonia The patient has had worsening in his oxygenation status following admission to the hospital on April 21. The patient ultimately had to be transferred to the medical intensive care unit on April 24 and is currently requiring BiPAP with an FiO2 requirement of 100%. The patient was deemed to be outside of the window for remdesivir and was initiated on Decadron. The patient did have a mildly elevated D-dimer. However, CTA chest was unable to be completed. Therefore, the patient was started on a continuous heparin infusion, which will be continued. Patient subsequently required intubation on 04/27/2021. Patient developed crepitus overnight, likely secondary to a pneumomediastinum. We will see if nephrology needs a dialysis line, otherwise will obtain a chest x-ray for documentation. Will decrease P high aggressively, tolerating higher FiO2, in an effort to control pneumomediastinum. 2. Paroxysmal atrial flutter Echocardiogram was unremarkable. Continue current medical management. Fully anticoagulated 3. Acute on chronic kidney disease Likely prerenal in etiology and related to acute presentation. Creatinine is not increased, but BUN is increasing. This may be secondary to steroids. We will continue to monitor urine output. No current indication for renal replacement therapy. Consult nephrology. Will obtain a renal ultrasound today. 4. Morbid obesity/history of FARSHAD/diabetes mellitus/hypertension/hyperlipidemia Complicates care, management, recovery and prognosis. Continue home medications as indicated. TIME: 37 minutes critical care time spent addressing patient's acute hypoxic respiratory failure, acute kidney injury, diabetes mellitus, hypertension, revi ew of all data and collaboration with care team (6 AM to 7 AM) Subjective Subjective Patient did okay overnight from a hemodynamic standpoint. Urine is much improved compared to previous. Patient has had significant hyperglycemia despite getting intermittent insulin. Objective Data Objective Data Vital Signs: Vital Signs Temp Pulse Resp BP Pulse Ox 36.0 C L 79 32 H 125/71 H 92 04/29/21 00:00 04/29/21 06:59 04/29/21 06:59 04/29/21 05:00 04/29/21 06:59 Oxygen Flow Rate (L/min) 60 Oxygen Delivery Method Mechanical Ventilator Weight: 128.9 kg Body Mass Index (BMI) 41.9 Intake & Output: Intake and Output for Last 24 Hours 04/27/21 04/28/21 04/29/21 23:59 23:59 23:59 Intake Total 2054.38 / 2099.78 2589.05 / 3154.05 1151.07 / 1151.07 Output Total 2600 / 2600 725 / 1125 750 / 750 Balance -545.62 / -500.22 1864.05 / 2029.05 401.07 / 401.07 Medical Nutrition Assessment Dietitian: Malnutrition Criteria Met Start: 04/25/21 10:11 Freq: Status: Active Protocol: Document 04/28/21 12:33 (Rec: 04/28/21 12:33 [id number]) Nutrition Malnutrition Evidence of Malnutrition Exists Yes Malnutrition (severe): Acute Illness/Injury Evidenced By Suboptimal Energy Intake ( Severe),Weight Loss (Severe) Intake Problem Inadequate Oral Intake Etiology r/t decreased appetite d/t acute illness, resp. failure requiring mechanical intubation Signs/Symptoms as evidenced by estimated PO intake meeting <50% of estimated nutritional needs> 5 days Status Active Problem Clinical Problem Acute Disease or Injury Related Malnutrition Etiology severe, acute malnutrition r/t inadequate energy intake d/t resp. failure, decreased appetite Signs/Symptoms as evidenced by estimated PO intake meeting <50% of estimated nutritional needs > 5 days; unintentional wt loss of 5.2kg/4% since admission Status Active Problem Altered Nutrient-Related Laboratory Values Etiology related to hx of endocrine dysfunction w/ steroid administration Signs/Symptoms as evidenced by gluc 353 Status Active Problem Recommendation Dietitian Recommendations/Changes NPO; Continue Vital AF 1.2 as ordered. Lab / Micro Data Result Diagrams: 04/29/21 04:50 04/29/21 04:50 Labs: Laboratory Results - last 24 hr 04/28/21 04:25: Diff Path Review Reviewed 04/28/21 08:30: APTT 68.9 H 04/28/21 11:55: POC Glucose 355 H 04/28/21 14:10: APTT 58.1 H 04/28/21 16:52: POC Glucose 420 H 04/29/21 00:51: POC Glucose > 500 H* 04/29/21 04:50: APTT 54.5 H 04/29/21 04:50: WBC 11.2 H, RBC 3.46 L, Hgb 9.9 L, Hct 30.2 L, MCV 87.3, MCH 28.6, MCHC 32.8, RDW Std Deviation 45.3 H, RDW Coeff of Damion 14.1, Plt Count 354, MPV 10.4, Neut % (Auto) Not Reportable, Absolute Neuts (auto) 9.3 H, Absolute Lymphs (auto) 0.78 L, Total Counted 100, Neutrophils % (Manual) 80 H, Band Neutrophils % 3, Lymphocytes % (Manual) 7 L, Monocytes % (Manual) 3, Me tamyelocytes % 5 H, Myelocytes % 2 H, Diff Path Review May , Platelet Estimate ADEQUATE, RBC Morphology NORM C+C 04/29/21 04:50: Sodium 133 L, Potassium 5.2 H, Chloride 99, Carbon Dioxide 24.0, Anion Gap 10, BUN 108 H*, Creatinine 3.09 H, Estim Creat Clear Calc 22.64, Est GFR (MDRD) Af Amer 26 L, Est GFR (MDRD) Non-Af 21 L, BUN/Creatinine Ratio 35.0 H , Glucose 542 H*, Calcium 8.1 L, Total Bilirubin 0.30, AST 64 H, ALT 77 H, Alkaline Phosphatase 106, Total Protein 6.7, Albumin 2.0 L, Globulin 4.7 H, Albumin/Globulin Ratio 0.4 L 04/29/21 05:05: POC Glucose > 500 H* Micro: Microbiology 04/27/21 10:30 Sputum, Induced/Lukens Gram Stain - Final 04/27/21 10:30 Sputum, Induced/Lukens Respiratory Culture - Preliminary Staphylococcus aureus 04/24/21 16:00 Urine, Random Streptococcus pneumoniae Antigen (M - Final 04/21/21 16:35 Sputum, Expectorated/Coughed Gram Stain - Final 04/21/21 16:35 Sputum, Expectorated/Coughed Respiratory Culture - Final 04/21/21 19:51 Mucosa - Nasopharyngeal Respiratory Panel (PCR) - Final 04/21/21 19:05 Urine, Clean Catch Legionella Antigen - Final ABG Data ABG results: ABG 04/29/21 05:36 Specimen Type ART pH 7.31 L Bicarbonate Actual 20.9 L Total CO2 22 Base Excess -5 L O2 Saturation 90 L O2 % 75 ABG pCO2 41.7 ABG pO2 64 L Murphy Test Positive Respiration Rate 12 O2 Delivery Device ET Tube Vent Mode BiLevel Radiography Diagnostic Testing: Radiology Impression Renal Ultrasound 04/28/21 06:57 IMPRESSION: No acute findings. Electronically Signed: Rasheed Rivera MD at 16:05 EDT , Service support , Rhythm Strip Rhythm Strip: A-fib Rate: 130 Ectopy: None Physical Exam Const Constitutional Narrative: Fair vent synchrony. RASS -2 General Appearance: ill appearing, intubated and patient mechanically ventilated Nutritional Appearance: morbidly obese HEENT normocephalic and head/scalp atraumatic Eyes PERRL, EOMs intact bilaterally and conjunctivae normal Neck supple General: trachea midline Chest inspection of chest normal Chest: symmetrical chest wall rise and crepitus clavicle and sternum Resp Auscultation: rales and diminished lung sounds; Negative for rhonchi or wheezes Cardio regular rate, regular rhythm, S1 normal heart sound, S2 normal heart sound, no murmurs, no rub and no gallops GI normal to inspection, nondistended, normoactive bowel sounds Extremity no clubbing, cyanosis or edema Skin no rashes or lesions noted Neuro CN's II-XII intact bilaterally, moves all extremities and no focal motor deficits Sensorium / Orientation: sedated on vent RASS: +1 Psych Psych Narrative: Intubated and sedated Charges/Coding Procedures Hospitalists Procedures: [id number] Critial Care 1st Hr
[2021-04-29] MEDS: Propofol 10MG/Ml 1,000 MG/100 ML Bottle 19 MG CONT INF ×4 (08:00→19:56)
--- NOTE | 2021-04-29 08:31 | RAD_ITS ---
STUDY: X-RAY CHEST REASON FOR EXAM: Male, 71 years old. Crepitus TECHNIQUE: Single AP portable view of the chest. COMPARISON: Comparison is made with prior examination dated 04/27/2021. FINDINGS: An endotracheal tube is in situ. The tip is at 4.2 cm proximal to the nisreen. An orogastric tube is seen with the tip at the region of the gastroesophageal junction. EKG electrodes are seen. Streaky air densities are seen overlying the left lung base. This may represent subcutaneous emphysema overlying the lower anterior left chest wall. Stable elevation of the right hemidiaphragm. Worsening of the pulmonary infiltrates in the left hemithorax. Stable right pulmonary infiltrates. There is no demonstrated pleural abnormality. Normal size heart. Normal mediastinum and bill. Normal visualized pulmonary arteries. Normal visualized aortic arch and descending thoracic aorta. There are diffuse degenerative changes of the visualized thoracic spine. Normal visualized ribs, clavicles, and shoulders. There is no demonstrated abnormality of the visualized soft tissue structures of the upper abdomen. RAD/Chest 1 View (Portable) IMPRESSION: Progressive infiltration in the left lung. Streaky air densities seen overlying the left lung base suggestive of possible subcutaneous emphysema along the lower left anterior chest wall. Electronically Signed: Jamison Darby MD at 13:02 EDT , Service support ,
--- NOTE | 2021-04-29 08:52 | PN.HOSP_ITS ---
Subjective Subjective No issues overnight, his blood sugars have been challenging to control and aggressive adjustments have been made Objective Data Objective Data Vital Signs: Vital Signs Temp Pulse Resp BP Pulse Ox 96.8 F L 79 32 H 125/71 H 92 04/29/21 00:00 04/29/21 06:59 04/29/21 06:59 04/29/21 05:00 04/29/21 06:59 Oxygen Flow Rate (L/min) 60 Oxygen Delivery Method Mechanical Ventilator Weight: 284 lb 2.813 oz Body Mass Index (BMI) 41.9 Intake & Output: Intake and Output for Last 24 Hours 04/28/21 04/29/21 04/30/21 03:59 03:59 03:59 Intake Total 1643.50 / 1657.90 2951.02 / 2976.02 529.2 / 529.2 Output Total 1400 / 1400 1125 / 1125 350 / 350 Balance 243.50 / 257.90 1826.02 / 1851.02 179.2 / 179.2 Medical Nutrition Assessment Dietitian: Malnutrition Criteria Met Start: 04/25/21 10:11 Freq: Status: Active Protocol: Document 04/28/21 12:33 AG (Rec: 04/28/21 12:33 [id number]) Nutrition Malnutrition Evidence of Malnutrition Exists Yes Malnutrition (severe): Acute Illness/Injury Evidenced By Suboptimal Energy Intake ( Severe),Weight Loss (Severe) Intake Problem Inadequate Oral Intake Etiology r/t decreased appetite d/t acute illness, resp. failure requiring mechanical intubation Signs/Symptoms as evidenced by estimated PO intake meeting <50% of estimated nutritional needs> 5 days Status Active Problem Clinical Problem Acute Disease or Injury Related Malnutrition Etiology severe, acute malnutrition r/t inadequate energy intake d/t resp. failure, decreased appetite Signs/Symptoms as evidenced by estimated PO intake meeting <50% of estimated nutritional needs > 5 days; unintentional wt loss of 5.2kg/4% since admission Status Active Problem Altered Nutrient-Related Laboratory Values Etiology related to hx of endocrine dysfunction w/ steroid administration Signs/Symptoms as evidenced by gluc 353 Status Active Problem Recommendation Dietitian Recommendations/Changes NPO; Continue Vital AF 1.2 as ordered. Lab / Micro Data Result Diagrams: 04/29/21 04:50 04/29/21 04:50 Labs: Laboratory Results - last 24 hr 04/28/21 04:25: Diff Path Review Reviewed 04/28/21 08:30: APTT 68.9 H 04/28/21 11:55: POC Glucose 355 H 04/28/21 14:10: APTT 58.1 H 04/28/21 16:52: POC Glucose 420 H 04/29/21 00:51: POC Glucose > 500 H* 04/29/21 04:50: APTT 54.5 H 04/29/21 04:50: WBC 11.2 H, RBC 3.46 L, Hgb 9.9 L, Hct 30.2 L, MCV 87.3, MCH 28.6, MCHC 32.8, RDW Std Deviation 45.3 H, RDW Coeff of Damion 14.1, Plt Count 354, MPV 10.4, Neut % (Auto) Not Reportable, Absolute Neuts (auto) 9.3 H, Absolute Lymphs (auto) 0.78 L, Total Counted 100, Neutrophils % (Manual) 80 H, Band Neutrophils % 3, Lymphocytes % (Manual) 7 L, Monocytes % (Manual) 3, Metamyelocytes % 5 H, Myelocytes % 2 H, Diff Path Review May foll, Platelet Estimate ADEQUATE, RBC Morphology NORM C+C 04/29/21 04:50: Sodium 133 L, Potassium 5.2 H, Chloride 99, Carbon Dioxide 24.0, Anion Gap 10, BUN 108 H*, Creatinine 3.09 H, Estim Creat Clear Calc 22.64, Est GFR (MDRD) Af Amer 26 L, Est GFR (MDRD) Non-Af 21 L, BUN/Creatinine Ratio 35.0 H , Glucose 542 H*, Calcium 8.1 L, Total Bilirubin 0.30, AST 64 H, ALT 77 H, Alkaline Phosphatase 106, Total Protein 6.7, Albumin 2.0 L, Globulin 4.7 H, Albumin/Globulin Ratio 0.4 L 04/29/21 05:05: POC Glucose > 500 H* Micro: Microbiology 04/27/21 10:30 Sputum, Induced/Lukens Gram Stain - Final 04/27/21 10:30 Sputum, Induced/Lukens Respiratory Culture - Final Staphylococcus aureus 04/24/21 16:00 Urine, Random Streptococcus pneumoniae Antigen (M - Final 04/21/21 16:35 Sputum, Expectorated/Coughed Gram Stain - Final 04/21/21 16:35 Sputum, Expectorated/Coughed Respiratory Culture - Final 04/21/21 19:51 Mucosa - Nasopharyngeal Respiratory Panel (PCR) - Final 04/21/21 19:05 Urine, Clean Catch Legionella Antigen - Final ABG Data ABG results: ABG 04/29/21 05:36 Specimen Type ART pH 7.31 L Bicarbonate Actual 20.9 L Total CO2 22 Base Excess -5 L O2 Saturation 90 L O2 % 75 ABG pCO2 41.7 ABG pO2 64 L Murphy Test Positive Respiration Rate 12 O2 Delivery Device ET Tube Vent Mode BiLevel Radiography Diagnostic Testing: Radiology Impression Renal Ultrasound 04/28/21 06:57 IMPRESSION: No acute findings. Electronically Signed: Rasheed Rivera MD at 16:05 EDT , Service support , Rhythm Strip Rhythm Strip: A-fib Rate: 130 Ectopy: None Physical Exam Const General Appearance: intubated and patient mechanically ventilated HEENT normocephalic and moist oral mucous membranes Eyes PERRL and conjunctivae normal Neck supple and no JVD Chest Chest: crepitus Resp normal respiratory effort, no retractions and no use of accessory muscles Auscultation: diminished lung sounds; Negative for crackles, rales, rhonchi or wheezes Cardio regular rate, regular rhythm, S1 normal heart sound, S2 normal heart sound and no murmurs GI soft to palpation and non-distended; Negative for hepatosplenomegaly Extremity no clubbing, cyanosis or edema Skin no rashes or lesions noted Neuro Sensorium / Orientation: sedated on vent Psych Appearance: intubated Assessment & Plan Assessment/Plan (1) Pneumonia due to COVID-19 virus: (2) Hypoxia: PLAN: 1. Acute hypoxic respiratory failure secondary to Covid pneumonia/PIPE on CKD 3 a/FARSHAD -He was started on Decadron on admission but did not qualify for remdesivir secondary to renal function which has worsened -We will monitor and hold off Lasix -Intubated 04/27/2021 due to declining respiratory status -D-dimer was slightly elevated however CTA could not be performed secondary to renal function therefore we will continue with heparin drip -He has developed some subcu emphysema secondary to crepitus on exam -We will discuss with nephrology whether or not he needs dialysis, and if so can place a dialysis catheter and obtain a chest x-ray at that time to evaluate both placement of catheter as well as subcu emphysema. 2. Paroxysmal a flutter/HTN/HLD/morbid obesity -Currently normal sinus and heart rate is controlled -Continue with heparin drip -Continue with statin therapy -Discussed lifestyle modifications, BMI 42.1 3. DM2 -Hold his oral hypoglycemics -We will place on long-acting and short acting insulin -Accu-Cheks AC at bedtime, will adjust as necessary 4. GERD -Stable -Continue PPI DVT: Heparin drip Charges/Coding Visit Charges Inpatient E&M: 77280 Subs Hosp L2
[2021-04-29] MEDS: Loratadine 10 MG Tablet GT (09:42)
[2021-04-29] MEDS: Metoprolol Tartrate 25 MG Tablet GT ×2 (09:42→22:20)
[2021-04-29] MEDS: Atorvastatin Calcium 20 MG Tablet GT (09:42)
[2021-04-29] MEDS: Senna/Docusate Sodium 1 Tablet 2 TABLET GT ×2 (09:42→22:19)
[2021-04-29] MEDS: Aspirin 81 MG TAB.CHEW GT (09:42)
[2021-04-29] MEDS: CHLORHEXIDINE GLUC 2% CLOTH 1 EACH TOWELETTE TOPICAL (09:43)
[2021-04-29] MEDS: dexAMETHasone 4 MG/ML Vial 6 MG IV (09:49)
[2021-04-29] MEDS: Chlorhexidine 15 ML PO ×2 (11:47→20:10)
[2021-04-29] MEDS: HEPARIN/D5w 25,000 UNITS 25,000 UNITS/250 ML IV.SOLN. 13 UNITS IV (11:49)
[2021-04-29 12:11] LABS: Bedside Glucose 478 mg/dL (70-110)
[2021-04-29 12:20] LABS: Partial Thromboplast Time 56.6 Seconds (24.1-36.2)
[2021-04-29 13:41] LABS: Bedside Glucose 442 mg/dL (70-110)
--- NOTE | 2021-04-29 13:51 | CON.PCM.RE_ITS ---
Assessment & Plan Assessment/Plan (1) PIPE (acute kidney injury): (2) CKD stage 3 due to type 1 diabetes mellitus: (3) Hyperkalemia: (4) Pneumonia due to COVID-19 virus: (5) Hypoxia: PLAN: baseline Cr 1.55 mg/dl PIPE is likely from ATN related to COVID-19 infection Cr is up to 3.0 mg/dl.BUN > 100 Non oliguric Ok to diurese the patient No uregent need for HD . 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 might give kayexalate if worse rest of management as per ICU thank you HPI Consult Data Date of Consult: 04/29/21 HPI Narrative HPI Narrative: IRISH NICOLAS, is a 71 M who presents with acute hypoxic RF from covid-19 pneumonia patient was intubaedon 06/05 On decardrone. Not candidate for remdesivir due to PIPE/CKD Renal is consulted for PIPE on CKD baseline Cr ~ 1.55 mg/dl. Cr at presentation was 2.8 mg/dl and improved to 1.6 mg/dl on 04/25. Cr has been increasing since then Cr is 3.0 this am stable from yesterday and BUN > 100 ros. unobtainable due to patient condition [facility] Medical History Diabetes High cholesterol History of prostate cancer Hypertension Morbid obesity FARSHAD (obstructive sleep apnea) Home Medications aspirin 81 mg chewable tablet 81 mg PO DAILY 04/20/21 [History Last Taken 04/21/21] atorvastatin 20 mg tablet 20 mg PO DAILY 04/20/21 [History Last Taken 04/21/21] calcium carbonate 600 mg(1,500 mg)-vitamin D3 800 unit chewable tablet 1 tab PO DAILY 04/20/21 [History Last Taken 04/20/21] glimepiride 4 mg tablet 4 mg PO BID 04/20/21 [History Last Taken 04/21/21] lisinopril 40 mg tablet 40 mg PO DAILY 04/20/21 [History Last Taken 04/20/21] loratadine 10 mg tablet 10 mg PO DAILY 04/20/21 [History Last Taken 04/20/21] gzbjgsoy-qut-ekavs acid 300 mcg-lycopene 600 mcg-lutein 300 mcg tablet 1 tab PO DAILY 04/20/21 [History Last Taken 04/21/21] pantoprazole 20 mg tablet,delayed release 20 mg PO DAILY 04/20/21 [History Last Taken 04/20/21] pioglitazone 45 mg tablet 45 mg PO DAILY 04/20/21 [History Last Taken 04/21/21] metformin 1,000 mg PO BID 04/21/21 [History Last Taken 04/21/21] Allergy/AdvReac Type Severity Reaction Status Date / Time No Known Allergies Allergy Unverified 04/20/21 13:19 Family History (Updated 04/21/21 @ 19:[address] Viridiana Gilbert MD) Mother CVA (cerebral vascular accident) Diabetes Heart disease Father CVA (cerebral vascular accident) Diabetes Heart disease Surgical History (Updated 04/21/21 @ 19:[address] Viridiana Gilbert MD) S/P cholecystectomy S/P parathyroidectomy S/P prostatectomy Social History (Updated 04/21/21 @ 19:[address] Viridiana Gilbert MD) household members: none Smoking Status: Never smoker alcohol intake: never substance use type: does not use Physical Exam Narrative No physical exam was performed due to active COVID-19 infection and to preserve PPE vs Reviewed. Lorna was seen from OUTSIDE ICU room Medical Records Data Medical Nutrition Assessment Dietitian: Malnutrition Criteria Met Start: 04/25/21 10:11 Freq: Status: Active Protocol: Document 04/28/21 12:33 AG (Rec: 04/28/21 12:33 [id number]) Nutrition Malnutrition Evidence of Malnutrition Exists Yes Malnutrition (severe): Acute Illness/Injury Evidenced By Suboptimal Energy Intake ( Severe),Weight Loss (Severe) Intake Problem Inadequate Oral Intake Etiology r/t decreased appetite d/t acute illness, resp. failure requiring mechanical intubation Signs/Symptoms as evidenced by estimated PO intake meeting <50% of estimated nutritional needs> 5 days Status Active Problem Clinical Problem Acute Disease or Injury Related Malnutrition Etiology severe, acute malnutrition r/t inadequate energy intake d/t resp. failure, decreased appetite Signs/Symptoms as evidenced by estimated PO intake meeting <50% of estimated nutritional needs > 5 days; unintentional wt loss of 5.2kg/4% since admission Status Active Problem Altered Nutrient-Related Laboratory Values Etiology related to hx of endocrine dysfunction w/ steroid administration Signs/Symptoms as evidenced by gluc 353 Status Active Problem Recommendation Dietitian Recommendations/Changes NPO; Continue Vital AF 1.2 as ordered. Lab / Micro Data Result Diagrams: 04/29/21 04:50 04/29/21 04:50 Labs: Laboratory Results - last 24 hr 04/28/21 14:10: APTT 58.1 H 04/28/21 16:52: POC Glucose 420 H 04/29/21 00:51: POC Glucose > 500 H* 04/29/21 04:50: APTT 54.5 H 04/29/21 04:50: WBC 11.2 H, RBC 3.46 L, Hgb 9.9 L, Hct 30.2 L, MCV 87.3, MCH 28.6, MCHC 32.8, RDW Std Deviation 45.3 H, RDW Coeff of Dmaion 14.1, Plt Count 354, MPV 10.4, Neut % (Auto) Not Reportable, Absolute Neuts (auto) 9.3 H, Absolute Lymphs (auto) 0.78 L, Total Counted 100, Neutrophils % (Manual) 80 H, Band Neutrophils % 3, Lymphocytes % (Manual) 7 L, Monocytes % (Manual) 3, Metamyelocytes % 5 H, Myelocytes % 2 H, Diff Path Review May foll, Platelet Estimate ADEQUATE, RBC Morphology NORM C+C 04/29/21 04:50: Sodium 133 L, Potassium 5.2 H, Chloride 99, Carbon Dioxide 24.0, Anion Gap 10, BUN 108 H*, Creatinine 3.09 H, Estim Creat Clear Calc 22.64, Est GFR (MDRD) Af Amer 26 L, Est GFR (MDRD) Non-Af 21 L, BUN/Creatinine Ratio 35.0 H , Glucose 542 H*, Calcium 8.1 L, Total Bilirubin 0.30, AST 64 H, ALT 77 H, Alkaline Phosphatase 106, Total Protein 6.7, Albumin 2.0 L, Globulin 4.7 H, Albumin/Globulin Ratio 0.4 L 04/29/21 05:05: POC Glucose > 500 H* 04/29/21 09:32: POC Glucose 478 H* 04/29/21 12:00: APTT 56.6 H 04/29/21 13:19: POC Glucose 442 H Micro: Microbiology 04/27/21 10:30 Sputum, Induced/Lukens Gram Stain - Final 04/27/21 10:30 Sputum, Induced/Lukens Respiratory Culture - Final Staphylococcus aureus ABG Data ABG results: ABG 04/29/21 05:36 Specimen Type ART pH 7.31 L Bicarbonate Actual 20.9 L Total CO2 22 Base Excess -5 L O2 Saturation 90 L O2 % 75 ABG pCO2 41.7 ABG pO2 64 L Murphy Test Positive Respiration Rate 12 O2 Delivery Device ET Tube Vent Mode BiLevel Rhythm Strip Rhythm Strip: A-fib Rate: 130 Ectopy: None Radiology Impression Renal Ultrasound 04/28/21 06:57 IMPRESSION: No acute findings. Electronically Signed: Rasheed Rivera MD at 16:05 EDT , Service support , Chest X-Ray 04/29/21 08:31 IMPRESSION: Progressive infiltration in the left lung. Streaky air densities seen overlying the left lung base suggestive of possible subcutaneous emphysema along the lower left anterior chest wall. Electronically Signed: Jamison Darby MD at 13:02 EDT , Service support ,
--- NOTE | 2021-04-29 15:09 | CM.UR ---
SW participated in ICU rounds this morning. SW called to offer support, she states she is doing fine. She plans to come in to the hospital around 4 to see pt, she is just waiting for her son to get there. SW let know that SW is here for support as needed. FAUSTO Triplett
[2021-04-29 18:17] LABS: Partial Thromboplast Time 54.9 Seconds (24.1-36.2)
[2021-04-29 18:20] LABS: Bedside Glucose 372 mg/dL (70-110)
--- NOTE | 2021-04-29 23:14 | NURSING ---
Fentanyl drip: MAR is reading Infused on titrations even though there was more medication in the bag. Bag was fully infused and changed at 2313.
[2021-04-29 23:16] LABS: Bedside Glucose 378 mg/dL (70-110)
[2021-04-30] VITALS (35 sets, daily range): BP systolic 94–160; BP diastolic 55–84; PULSE 77–155; RESP 2–45; TEMP 37–37.5; O2SAT 81–93
[2021-04-30] MEDS: Propofol 10MG/Ml 1,000 MG/100 ML Bottle 19 MG CONT INF ×5 (00:46→22:46)
[2021-04-30 01:34] LABS: Hematocrit 31.1 % (40-54); Hemoglobin 10.1 g/dL (13.0-16.5); Mean Corp Hgb Conc 32.5 g/dL (32-36); Mean Corpuscular Hgb 28.1 pg (27.0-32.0); Mean Corpuscular Volume 86.4 fL (80-94); Mean Platelet Vol. 10.3 fl (6.2-12.0); POSITIVE COUNT YES; POSITIVE DIFFERENTIAL YES; POSITIVE MORPHOLOGY YES; Platelet Count 366 K/mm3 (150-450); RBC Distribution Width CV 14.4 % (11.6-14.6); RBC Distribution Width SD 45.2 fl (35.1-43.9); White Blood Count 13.5 K/mm3 (4.4-11.0)
[2021-04-30 01:37] LABS: Differential Indicated MANUAL DIFF
[2021-04-30 01:58] LABS: ALB/GLOB Ratio 0.4 RATIO (0.9-2.4); AST(SGOT) 53 U/L (15-37); Alanine Aminotransfer ALT/SGPT 68 U/L (16-61); Albumin, Serum 1.9 g/dL (3.2-5.0); Alkaline Phosphatase 100 U/L (45-117); Anion Gap 9 (5-15); BUN 103 mg/dL (7-18); Calcium,Total 7.8 mg/dL (8.5-10.1); Chloride 107 mmol/L (98-107); Creatinine, Serum 2.34 mg/dL (0.70-1.30); EST Glomerular Filtration Rate 29 mL/min (>60); Est Glom Filt Rate - Afr Amer 36 mL/min (>60); Globulin 4.9 g/dL (2.2-4.2); Glucose 365 mg/dL (74-106); Protein, Total 6.8 g/dL (6.4-8.2); Sodium Level 137 mmol/L (136-145)
[2021-04-30 02:51] LABS: Lymphocyte 1 % (19-41); Metamyelocyte 2 % (0-1); Monocyte 3 % (0-10); Myelocyte 5 % (0-0); Neutrophil-Band 5 % (0-5); Neutrophil-Segmented 84 % (47-70); Platelet Estimate ADEQUATE (ADEQ); Red Cell Morphology NORM C+C NORMAL (NORM C&C); Total Cells Counted 100 (MANUAL DIFF)
[2021-04-30 02:52] LABS: Neutrophil # 12.03 X10^3/uL (2.7-7.7)
[2021-04-30 02:53] LABS: Absolute Lymphocyte Count 0.14 X10^3/uL (0.83-4.51); Lymphocyte # 0.14 X10^3/ul (0.83-4.51)
[2021-04-30] MEDS: Insulin Lispro 100 UNIT/ML INSULN.PEN SC ×6 (03:06→22:10)
[2021-04-30 03:16] LABS: Bedside Glucose 343 mg/dL (70-110)
[2021-04-30 05:36] LABS: Base Excess -3 mmol/L (-2 to +2); Bicarbonate 22.2 mmol/L (22-26); Blood Gas Specimen Type ART; FI02 85; Mode APRV; O2 Delivery Device Adult Vent; PO2 60 mmHG (75-100); RR 12; SITE L Radial; SO2 90 % (95-99); Total Carbon Dioxide 23 mmol/L; pCO2 37.8 mmHg (35-45); pH 7.38 (7.35-7.45)
[2021-04-30] MEDS: HEPARIN/D5w 25,000 UNITS 25,000 UNITS/250 ML IV.SOLN. 14 UNITS IV ×2 (06:11→22:08)
[2021-04-30] MEDS: dilTIAZem 60 MG Tablet GT ×3 (06:27→16:44)
[2021-04-30 06:50] LABS: Bedside Glucose 363 mg/dL (70-110)
--- NOTE | 2021-04-30 07:58 | PN.CC_ITS ---
Assessment & Plan Assessment/Plan (1) Hypoxia: (2) Pneumonia due to COVID-19 virus: PLAN: RECOMMENDATIONS: 1. Titrate down P high as able and tolerate higher FiO2. FiO2 to maintain saturations at or above 90%. 2. Hold on Lasix challenge given elevated creatinine. Appreciate nephrology input 3. Continue Decadron to complete 10-day treatment course. 4. Continue empiric antimicrobials. 5. Off baricitinib secondary to renal function 6. Continue heparin infusion for now. 7. Increase Lantus. Aggressive sliding scale IMPRESSIONS: 1. Acute hypoxemic respiratory failure secondary to COVID-19 pneumonia The patient has had worsening in his oxygenation status following admission to the hospital on April 21. The patient ultimately had to be transferred to the medical intensive care unit on April 24 and is currently requiring BiPAP with an FiO2 requirement of 100%. The patient was deemed to be outside of the window for remdesivir and was initiated on Decadron. The patient did have a mildly elevated D-dimer. However, CTA chest was unable to be completed. Therefore, the patient was started on a continuous heparin infusion, which will be continued. Patient subsequently required intubation on 04/27/2021. Patient developed crepitus overnight on 04/28/2021, likely secondary to a pneumomediastinum. Will attempt to use higher FiO2 to allow for lower pressures in an effort to address pneumomediastinum. 2. Paroxysmal atrial flutter Echocardiogram was unremarkable. Continue current medical management. Fully anticoagulated. Rate relatively controlled. 3. Acute on chronic kidney disease Likely prerenal in etiology and related to acute presentation. Significant improvement in urine output and renal function today. We will continue to monitor urine output. No current indication for renal replacement therapy. Consulted nephrology. Await recommendations 4. Morbid obesity/history of FARSHAD/diabetes mellitus/hypertensio n/hyperlipidemia Complicates care, management, recovery and prognosis. Continue home medications as indicated. TIME: 34 minutes critical care time spent addressing patient's acute hypoxic respiratory failure, acute kidney injury, diabetes mellitus, hypertension, review of all data and collaboration with care team (6:15 AM to 7:15 AM) Subjective Subjective Patient did okay overnight. Patient has remained in a flutter/A. fib, but otherwise hemodynamically stable. Patient's urine output has improved. Patient continues to have crepitus, but it does not appear to be expanding. Objective Data Objective Data Vital Signs: Vital Signs Temp Pulse Resp BP Pulse Ox 37.0 C 113 H 36 H 147/79 H 91 04/30/21 04:00 04/30/21 07:05 04/30/21 07:05 04/30/21 07:00 04/30/21 07:05 Oxygen Flow Rate (L/min) 60 Oxygen Delivery Method Mechanical Ventilator Weight: 130.2 kg Body Mass Index (BMI) 41.9 Intake & Output: Intake and Output for Last 24 Hours 04/28/21 04/29/21 04/30/21 23:59 23:59 23:59 Intake Total 2589.05 / 3154.05 3890.29 / 3898.12 689.64 / 689.64 Output Total 725 / 1125 2575 / 2575 800 / 800 Balance 1864.05 / 2028.05 1315.29 / 1323.12 -110.36 / -110.36 Medical Nutrition Assessment Dietitian: Malnutrition Criteria Met Start: 04/25/21 10:11 Freq: Status: Active Protocol: Document 04/28/21 12:33 AG (Rec: 04/28/21 12:33 [id number]) Nutrition Malnutrition Evidence of Malnutrition Exists Yes Malnutrition (severe): Acute Illness/Injury Evidenced By Suboptimal Energy Intake ( Severe),Weight Loss (Severe) Intake Problem Inadequate Oral Intake Etiology r/t decreased appetite d/t acute illness, resp. failure requiring mechanical intubation Signs/Symptoms as evidenced by estimated PO intake meeting <50% of estimated nutritional needs> 5 days Status Active Problem Clinical Problem Acute Disease or Injury Related Malnutrition Etiology severe, acute malnutrition r/t inadequate energy intake d/t resp. failure, decreased appetite Signs/Symptoms as evidenced by estimated PO intake meeting <50% of estimated nutritional needs > 5 days; unintentional wt loss of 5.2kg/4% since admission Status Active Problem Altered Nutrient-Related Laboratory Values Etiology related to hx of endocrine dysfunction w/ steroid administration Signs/Symptoms as evidenced by gluc 353 Status Active Problem Recommendation Dietitian Recommendations/Changes NPO; Continue Vital AF 1.2 as ordered. Lab / Micro Data Result Diagrams: 04/30/21 01:25 04/30/21 01:25 Labs: Laboratory Results - last 24 hr 04/29/21 09:32: POC Glucose 478 H* 04/29/21 12:00: APTT 56.6 H 04/29/21 13:19: POC Glucose 442 H 04/29/21 17:38: POC Glucose 372 H 04/29/21 17:45: APTT 54.9 H 04/29/21 22:18: POC Glucose 378 H 04/30/21 01:25: APTT 57.0 H 04/30/21 01:25: WBC 13.5 H, RBC 3.60 L, Hgb 10.1 L, Hct 31.1 L, MCV 86.4, MCH 28.1, MCHC 32.5, RDW Std Deviation 45.2 H, RDW Coeff of Damion 14.4, Plt Count 366, MPV 10.3, Neut % (Auto) Not Reportable, Absolute Neuts (auto) 12.0 H, Absolute Lymphs (auto) 0.14 L, Total Counted 100, Neutrophils % (Manual) 84 H, Band Neutrophils % 5, Lymphocytes % (Manual) 1 L, Monocytes % (Manual) 3, Metamyelocytes % 2 H, Myelocytes % 5 H, Diff Path Review November, Platelet Estimate ADEQUATE, RBC Morphology NORM C+C 04/30/21 01:25: Sodium 137, Potassium 5.0, Chloride 107, Carbon Dioxide 21.0, Anion Gap 9, BUN 103 H*, Creatinine 2.34 H, Estim Creat Clear Calc 29.90, Est GFR (MDRD) Af Amer 36 L, Est GFR (MDRD) Non-Af 29 L, BUN/Creatinine Ratio 44.0 H , Glucose 365 H, Calcium 7.8 L, Total Bilirubin 0.40, AST 53 H, ALT 68 H, Alkaline Phosphatase 100, Total Protein 6.8, Albumin 1.9 L, Globulin 4.9 H, Albumin/Globulin Ratio 0.4 L 04/30/21 03:06: POC Glucose 343 H 04/30/21 06:26: POC Glucose 363 H Micro: Microbiology 04/27/21 10:30 Sputum, Induced/Lukens Gram Stain - Final 04/27/21 10:30 Sputum, Induced/Lukens Respiratory Culture - Final Staphylococcus aureus 04/24/21 16:00 Urine, Random Streptococcus pneumoniae Antigen (M - Final 04/21/21 16:35 Sputum, Expectorated/Coughed Gram Stain - Final 04/21/21 16:35 Sputum, Expectorated/Coughed Respiratory Culture - Final 04/21/21 19:51 Mucosa - Nasopharyngeal Respiratory Panel (PCR) - Final 04/21/21 19:05 Urine, Clean Catch Legionella Antigen - Final ABG Data ABG results: ABG 04/30/21 05:30 Specimen Type ART Sample Site L Radial pH 7.38 Bicarbonate Actual 22.2 Total CO2 23 Base Excess -3 L O2 Saturation 90 L O2 % 85 ABG pCO2 37.8 ABG pO2 60 L Murphy Test N/A Respiration Rate 12 O2 Delivery Device Adult Vent Vent Mode APRV Clinical Comments THIGH4.5 [id number] Radiography Diagnostic Testing: Radiology Impression Chest X-Ray 04/29/21 08:31 IMPRESSION: Progressive infiltration in the left lung. Streaky air densities seen overlying the left lung base suggestive of possible subcutaneous emphysema along the lower left anterior chest wall. Electronically Signed: Jamison Darby MD at 13:02 EDT , Service support , Rhythm Strip Rhythm Strip: A-fib Rate: 130 Ectopy: None Physical Exam Const Constitutional Narrative: Fair vent synchrony. RASS -2 General Appearance: ill appearing, intubated and patient mechanically ventilated Nutritional Appearance: morbidly obese HEENT normocephalic and head/scalp atraumatic Eyes PERRL, EOMs intact bilaterally and conjunctivae normal Neck supple General: trachea midline Chest inspection of chest normal Chest: symmetrical chest wall rise and crepitus clavicle and sternum Resp Auscultation: rales and diminished lung sounds; Negative for rhonchi or wheezes Cardio regular rate, regular rhythm, S1 normal heart sound, S2 normal heart sound, no murmurs, no rub and no gallops GI normal to inspection, nondistended, normoactive bowel sounds Extremity no clubbing, cyanosis or edema Skin no rashes or lesions noted Neuro CN's II-XII intact bilaterally, moves all extremities and no focal motor deficits Sensorium / Orientation: sedated on vent RASS: +1 Psych Psych Narrative: Intubated and sedated Charges/Coding Procedures Hospitalists Procedures: 22190 Critial Care 1st Hr
[2021-04-30] MEDS: Loratadine 10 MG Tablet GT (08:18)
[2021-04-30] MEDS: Atorvastatin Calcium 20 MG Tablet GT (08:18)
[2021-04-30] MEDS: Metoprolol Tartrate 25 MG Tablet GT (08:18)
[2021-04-30] MEDS: Senna/Docusate Sodium 1 Tablet 2 TABLET GT ×2 (08:19→20:39)
[2021-04-30] MEDS: dexAMETHasone 4 MG/ML Vial 6 MG IV (08:24)
[2021-04-30] MEDS: Aspirin 81 MG TAB.CHEW GT (08:30)
[2021-04-30 08:56] LABS: Partial Thromboplast Time 58.7 Seconds (24.1-36.2)
--- NOTE | 2021-04-30 09:21 | PN.RENAL_ITS ---
Subjective Subjective intubated and sedated no directed physical exam performed Objective Data Objective Data Vital Signs: Vital Signs Temp Pulse Resp BP Pulse Ox 98.6 F 155 H 36 H 160/72 H 91 04/30/21 04:00 04/30/21 08:18 04/30/21 07:05 04/30/21 08:18 04/30/21 07:05 Oxygen Flow Rate (L/min) 60 Oxygen Delivery Method Mechanical Ventilator Weight: 130.2 kg Body Mass Index (BMI) 41.9 Intake & Output: Intake and Output for Last 24 Hours 04/28/21 04/29/21 04/30/21 23:59 23:59 23:59 Intake Total 2589.05 / 3154.05 3890.29 / 3898.12 689.64 / 689.64 Output Total 725 / 1125 2575 / 2575 800 / 800 Balance 1864.05 / 2028.05 1315.29 / 1323.12 -110.36 / -110.36 Medical Nutrition Assessment Dietitian: Malnutrition Criteria Met Start: 04/25/21 10:11 Freq: Status: Active Protocol: Document 04/28/21 12:33 AG (Rec: 04/28/21 12:33 [id number]) Nutrition Malnutrition Evidence of Malnutrition Exists Yes Malnutrition (severe): Acute Illness/Injury Evidenced By Suboptimal Energy Intake ( Severe),Weight Loss (Severe) Intake Problem Inadequate Oral Intake Etiology r/t decreased appetite d/t acute illness, resp. failure requiring mechanical intubation Signs/Symptoms as evidenced by estimated PO intake meeting <50% of estimated nutritional needs> 5 days Status Active Problem Clinical Problem Acute Disease or Injury Related Malnutrition Etiology severe, acute malnutrition r/t inadequate energy intake d/t resp. failure, decreased appetite Signs/Symptoms as evidenced by estimated PO intake meeting <50% of estimated nutritional needs > 5 days; unintentional wt loss of 5.2kg/4% since admission Status Active Problem Altered Nutrient-Related Laboratory Values Etiology related to hx of endocrine dysfunction w/ steroid administration Signs/Symptoms as evidenced by gluc 353 Status Active Problem Recommendation Dietitian Recommendations/Changes NPO; Continue Vital AF 1.2 as ordered. Lab / Micro Data Result Diagrams: 04/30/21 01:25 04/30/21 01:25 Labs: Laboratory Results - last 24 hr 04/29/21 09:32: POC Glucose 478 H* 04/29/21 12:00: APTT 56.6 H 04/29/21 13:19: POC Glucose 442 H 04/29/21 17:38: POC Glucose 372 H 04/29/21 17:45: APTT 54.9 H 04/29/21 22:18: POC Glucose 378 H 04/30/21 01:25: APTT 57.0 H 04/30/21 01:25: WBC 13.5 H, RBC 3.60 L, Hgb 10.1 L, Hct 31.1 L, MCV 86.4, MCH 28.1, MCHC 32.5, RDW Std Deviation 45.2 H, RDW Coeff of Damion 14.4, Plt Count 366, MPV 10.3, Neut % (Auto) Not Reportable, Absolute Neuts (auto) 12.0 H, Absolute Lymphs (auto) 0.14 L, Total Counted 100, Neutrophils % (Manual) 84 H, Band Neutrophils % 5, Lymphocytes % (Manual) 1 L, Monocytes % (Manual) 3, Metamyelocytes % 2 H, Myelocytes % 5 H, Diff Path Review May , Platelet Estimate ADEQUATE, RBC Morphology NORM C+C 04/30/21 01:25: Sodium 137, Potassium 5.0, Chloride 107, Carbon Dioxide 21.0, Anion Gap 9, BUN 103 H*, Creatinine 2.34 H, Estim Creat Clear Calc 29.90, Est GFR (MDRD) Af Amer 36 L, Est GFR (MDRD) Non-Af 29 L, BUN/Creatinine Ratio 44.0 H , Glucose 365 H, Calcium 7.8 L, Total Bilirubin 0.40, AST 53 H, ALT 68 H, Alkaline Phosphatase 100, Total Protein 6.8, Albumin 1.9 L, Globulin 4.9 H, Albumin/Globulin Ratio 0.4 L 04/30/21 03:06: POC Glucose 343 H 04/30/21 06:26: POC Glucose 363 H 04/30/21 08:25: APTT 58.7 H Micro: Microbiology 04/27/21 10:30 Sputum, Induced/Lukens Gram Stain - Final 04/27/21 10:30 Sputum, Induced/Lukens Respiratory Culture - Final Staphylococcus aureus 04/24/21 16:00 Urine, Random Streptococcus pneumoniae Antigen (M - Final 04/21/21 16:35 Sputum, Expectorated/Coughed Gram Stain - Final 04/21/21 16:35 Sputum, Expectorated/Coughed Respiratory Culture - Final 04/21/21 19:51 Mucosa - Nasopharyngeal Respiratory Panel (PCR) - Final 04/21/21 19:05 Urine, Clean Catch Legionella Antigen - Final ABG Data ABG results: ABG 04/30/21 05:30 Specimen Type ART Sample Site L Radial pH 7.38 Bicarbonate Actual 22.2 Total CO2 23 Base Excess -3 L O2 Saturation 90 L O2 % 85 ABG pCO2 37.8 ABG pO2 60 L Murphy Test N/A Respiration Rate 12 O2 Delivery Device Adult Vent Vent Mode APRV Clinical Comments THIGH4.5 PHIGH22 Radiography Diagnostic Testing: Radiology Impression Chest X-Ray 04/29/21 08:31 IMPRESSION: Progressive infiltration in the left lung. Streaky air densities seen overlying the left lung base suggestive of possible subcutaneous emphysema along the lower left anterior chest wall. Electronically Signed: Jamison Darby MD at 13:02 EDT , Service support , Rhythm Strip Rhythm Strip: A-fib Rate: 130 Ectopy: None Physical Exam Narrative No physical exam was performed due to active COVID-19 infection and to preserve PPE vs Reviewed. Patietn was seen from OUTSIDE ICU room Assessment & Plan Assessment/Plan (1) PIPE (acute kidney injury): (2) CKD stage 3 due to type 1 diabetes mellitus: (3) Hyperkalemia: PLAN: resolved (4) Pneumonia due to COVID-19 virus: (5) Hypoxia: PLAN: baseline Cr 1.55 mg/dl PIPE is likely from ATN related to COVID-19 infection Cr is better . UOP has increased No need for SOFTWARE INSTALLATION ENGINEER Ok to diurese the patient Keep > map > 65 Monitor K level . might give kayexalate if worse rest of management as per ICU thank you
[2021-04-30] MEDS: Propofol 10MG/Ml 1,000 MG/100 ML Bottle 22.8 MG CONT INF ×2 (09:22→13:38)
[2021-04-30 09:25] LABS: Pathologist Review Reviewed
[2021-04-30] MEDS: TITRATION PARAMETER CHANGE 1 EACH IV (09:52)
--- NOTE | 2021-04-30 10:55 | PCM.PN.ID ---
Physical Exam Narrative No fever, on vent Const Constitutional Narrative: sedated Resp Auscultation: diminished lung sounds Cardio Rate: tachycardic GI normal to inspection, nondistended, normoactive bowel sounds Skin no rashes or lesions noted ID ID: Route of nutrition/ use of supplements: [] Nutritional Intake: [] IV Site: [] Bridges Catheter: [] Assessment & Plan Assessment/Plan (1) Pneumonia due to COVID-19 virus: PLAN: Sx started 04/14. Unvaccinated. Got monoclonal Ab 04/22. Recommend isolation for 20 days from 04/14. Recommend vaccine once out of iso. On dex. Worsening PIPE, stopped baricitinib. On vent, on zosyn. Decreased zosyn to q12h. Sputum with mssa. Will follow (2) Hypoxia:
[2021-04-30] MEDS: Metoprolol Tartrate 25 MG Tablet PO (11:16)
[2021-04-30] MEDS: Polyethylene Glycol 3350 17 GM PACKET GT ×2 (11:16→20:40)
[2021-04-30] MEDS: CHLORHEXIDINE GLUC 2% CLOTH 1 EACH TOWELETTE TOPICAL (11:17)
[2021-04-30] MEDS: Menthol/Lanolin/Calamine/Znox 113 GM Tube 1 APPLIC TOPICAL ×2 (11:17→20:40)
[2021-04-30] MEDS: Chlorhexidine 15 ML PO ×2 (11:17→20:40)
[2021-04-30] MEDS: Vital AF 1.2 Cal Liquid 1,000 ML 60 ML GT (11:19)
--- NOTE | 2021-04-30 12:22 | PN.HOSP_ITS ---
Subjective Subjective Remains intubated and sedated, went into a flutter/A. fib overnight. Objective Data Objective Data Vital Signs: Vital Signs Temp Pulse Resp BP Pulse Ox 98.6 F 122 H 36 H 141/69 H 91 04/30/21 04:00 04/30/21 11:16 04/30/21 07:05 04/30/21 11:16 04/30/21 07:05 Oxygen Flow Rate (L/min) 60 Oxygen Delivery Method Mechanical Ventilator Weight: 287 lb 0.67 oz Body Mass Index (BMI) 41.9 Intake & Output: Intake and Output for Last 24 Hours 04/29/21 04/30/21 05/01/21 03:59 03:59 03:59 Intake Total 2951.02 / 2976.02 3295.82 / 3305.82 2071.65 / 2071.65 Output Total 1125 / 1125 2175 / 2175 1450 / 1450 Balance 1826.02 / 1851.02 1120.82 / 1130.82 621.65 / 621.65 Medical Nutrition Assessment Dietitian: Malnutrition Criteria Met Start: 04/25/21 10:11 Freq: Status: Active Protocol: Document 04/28/21 12:33 AG (Rec: 04/28/21 12:33 AG [id number]) Nutrition Malnutrition Evidence of Malnutrition Exists Yes Malnutrition (severe): Acute Illness/Injury Evidenced By Suboptimal Energy Intake ( Severe),Weight Loss (Severe) Intake Problem Inadequate Oral Intake Etiology r/t decreased appetite d/t acute illness, resp. failure requiring mechanical intubation Signs/Symptoms as evidenced by estimated PO intake meeting <50% of estimated nutritional needs> 5 days Status Active Problem Clinical Problem Acute Disease or Injury Related Malnutrition Etiology severe, acute malnutrition r/t inadequate energy intake d/t resp. failure, decreased appetite Signs/Symptoms as evidenced by estimated PO intake meeting <50% of estimated nutritional needs > 5 days; unintentional wt loss of 5.2kg/4% since admission Status Active Problem Altered Nutrient-Related Laboratory Values Etiology related to hx of endocrine dysfunction w/ steroid administration Signs/Symptoms as evidenced by gluc 353 Status Active Problem Recommendation Dietitian Recommendations/Changes NPO; Continue Vital AF 1.2 as ordered. Lab / Micro Data Result Diagrams: 04/30/21 01:25 04/30/21 01:25 Labs: Laboratory Results - last 24 hr 04/29/21 04:50: Diff Path Review Reviewed 04/29/21 13:19: POC Glucose 442 H 04/29/21 17:38: POC Glucose 372 H 04/29/21 17:45: APTT 54.9 H 04/29/21 22:18: POC Glucose 378 H 04/30/21 01:25: APTT 57.0 H 04/30/21 01:25: WBC 13.5 H, RBC 3.60 L, Hgb 10.1 L, Hct 31.1 L, MCV 86.4, MCH 28.1, MCHC 32.5, RDW Std Deviation 45.2 H, RDW Coeff of Damion 14.4, Plt Count 366, MPV 10.3, Neut % (Auto) Not Reportable, Absolute Neuts (auto) 12.0 H, Absolute Lymphs (auto) 0.14 L, Total Counted 100, Neutrophils % (Manual) 84 H, Band Neutrophils % 5, Lymphocytes % (Manual) 1 L, Monocytes % (Manual) 3, Metamyelocytes % 2 H, Myelocytes % 5 H, Diff Path Review May foll, Platelet Estimate ADEQUATE, RBC Morphology NORM C+C 04/30/21 01:25: Sodium 137, Potassium 5.0, Chloride 107, Carbon Dioxide 21.0, Anion Gap 9, BUN 103 H*, Creatinine 2.34 H, Estim Creat Clear Calc 29.90, Est GFR (MDRD) Af Amer 36 L, Est GFR (MDRD) Non-Af 29 L, BUN/Creatinine Ratio 44.0 H , Glucose 365 H, Calcium 7.8 L, Total Bilirubin 0.40, AST 53 H, ALT 68 H, Alkaline Phosphatase 100, Total Protein 6.8, Albumin 1.9 L, Globulin 4.9 H, Albumin/Globulin Ratio 0.4 L 04/30/21 03:06: POC Glucose 343 H 04/30/21 06:26: POC Glucose 363 H 04/30/21 08:25: APTT 58.7 H Micro: Microbiology 04/27/21 10:30 Sputum, Induced/Lukens Gram Stain - Final 04/27/21 10:30 Sputum, Induced/Lukens Respiratory Culture - Final Staphylococcus aureus 04/24/21 16:00 Urine, Random Streptococcus pneumoniae Antigen (M - Final 04/21/21 16:35 Sputum, Expectorated/Coughed Gram Stain - Final 04/21/21 16:35 Sputum, Expectorated/Coughed Respiratory Culture - Final 04/21/21 19:51 Mucosa - Nasopharyngeal Respiratory Panel (PCR) - Final 04/21/21 19:05 Urine, Clean Catch Legionella Antigen - Final ABG Data ABG results: ABG 04/30/21 05:30 Specimen Type ART Sample Site L Radial pH 7.38 Bicarbonate Actual 22.2 Total CO2 23 Base Excess -3 L O2 Saturation 90 L O2 % 85 ABG pCO2 37.8 ABG pO2 60 L Murphy Test N/A Respiration Rate 12 O2 Delivery Device Adult Vent Vent Mode APRV Clinical Comments THIGH4.5 PHIGH22 Radiography Diagnostic Testing: Radiology Impression Chest X-Ray 04/29/21 08:31 IMPRESSION: Progressive infiltration in the left lung. Streaky air densities seen overlying the left lung base suggestive of possible subcutaneous emphysema along the lower left anterior chest wall. Electronically Signed: Jamison Darby MD at 13:02 EDT , Service support , Rhythm Strip Rhythm Strip: A-fib Rate: 130 Ectopy: None Physical Exam Const General Appearance: intubated and patient mechanically ventilated HEENT normocephalic and moist oral mucous membranes Eyes PERRL and conjunctivae normal Neck supple and no JVD Chest Chest: crepitus Resp normal respiratory effort, no retractions and no use of accessory muscles Auscultation: diminished lung sounds; Negative for crackles, rales, rhonchi or wheezes Cardio regular rate, regular rhythm, S1 normal heart sound, S2 normal heart sound and no murmurs GI soft to palpation and non-distended; Negative for hepatosplenomegaly Extremity no clubbing, cyanosis or edema Skin no rashes or lesions noted Neuro Sensorium / Orientation: sedated on vent Psych Appearance: intubated Assessment & Plan Assessment/Plan (1) Pneumonia due to COVID-19 virus: (2) Hypoxia: PLAN: 1. Acute hypoxic respiratory failure secondary to Covid pneumonia/PIPE on CKD 3 a/FARSHAD -He was started on Decadron on admission but did not qualify for remdesivir secondary to renal function which has worsened -We will monitor and hold off Lasix -Intubated 04/27/2021 due to declining respiratory status -D-dimer was slightly elevated however CTA could not be performed secondary to renal function therefore we will continue with heparin drip -He has developed some subcu emphysema secondary to crepitus on exam -No dialysis catheter was inserted secondary to no need for dialysis per nephrology appreciate their assistance 2. Paroxysmal a flutter/HTN/HLD/morbid obesity -Currently normal sinus and heart rate is controlled, echo was unremarkable -Continue with heparin drip -Continue with statin therapy -Discussed lifestyle modifications, BMI 42.1 3. DM2 -Hold his oral hypoglycemics -We will place on long-acting and short acting insulin -Accu-Cheks AC at bedtime, will adjust as necessary 4. GERD -Stable -Continue PPI DVT: Heparin drip Charges/Coding Visit Charges Inpatient E&M: 59966 Subs Hosp L2
[2021-04-30 13:25] LABS: Bedside Glucose 384 mg/dL (70-110)
[2021-04-30 13:41] LABS: Bedside Glucose 372 mg/dL (70-110)
[2021-04-30 16:55] LABS: Bedside Glucose 426 mg/dL (70-110)
[2021-04-30] MEDS: Metoprolol Tartrate 50 MG Tablet GT (20:40)
[2021-04-30 22:31] LABS: Bedside Glucose > 500 mg/dL (70-110)
[2021-04-30] MEDS: Insulin Lispro 100 UNIT/ML INSULN.PEN 44 UNIT SC (22:44)
[2021-05-01] VITALS (19 sets, daily range): BP systolic 69–155; BP diastolic 16–68; PULSE 42–150; RESP 9–97; TEMP 37.2–41.8; O2SAT 67–97
[2021-05-01] MEDS: Insulin Lispro 100 UNIT/ML INSULN.PEN SC (01:57)
--- NOTE | 2021-05-01 02:06 | EKG12_ITS ---
Test Reason : PEA Blood Pressure : / mmHG Vent. Rate : 106 BPM Atrial Rate : 106 BPM P-R Int : 166 ms QRS Dur : 132 ms QT Int : 408 ms P-R-T Axes : 027 -29 -01 degrees QTc Int : 541 ms Sinus tachycardia Right bundle branch block Abnormal ECG Confirmed by DONNELL HOFF, GM ([id number]), news editor ISABELLA PONCE ([id number]) on 05/13/2021 9:59:17 AM Referred By: Confirmed By:GM JACOBO MD
--- NOTE | 2021-05-01 02:09 | RAD_ITS ---
EXAM: XR CHEST, 1 VIEW : 1950 CLINICAL INDICATION: condition change TECHNIQUE: Frontal view of the chest. This report was created using [employer] report generation technology. COMPARISON: 04/29/21 FINDINGS: LUNGS AND PLEURAL SPACES: Continued diffuse pulmonary infiltrates, not significantly changed. No pneumothorax. No effusion. HEART: Unremarkable. Cardiac silhouette not enlarged. MEDIASTINUM: Central airways and mediastinal contour are unremarkable. BONES/JOINTS: Unremarkable. SOFT TISSUES: Unremarkable. TUBES, LINES AND DEVICES: Stable endotracheal tube, enteric tube and right PICC. RAD/Chest 1 View (Portable) IMPRESSION: Continued diffuse pulmonary infiltrates, not significantly changed. Findings likely indicate pneumonia. at 0334 Reported and signed by: Rasheed Banegas MD Electronically Signed: Rasheed Banegas MD at 3:34 EDT Tel , Service support ,
--- NOTE | 2021-05-01 02:37 | PCM.CODE.SUM ---
Code Blue Report Code Blue Summary Code Blue Summary: Responded to CODE BLUE. Patient was in PEA and was giving epinephrine before hospitalist arrival and the patient had achieved ROSC. Patient had just been started on Levophed drip when PEA occurred. Levophed drip rates increase. Ordered to put patient on vasopressor and epinephrine drip. EKG and chest x-ray ordered Nursing team tried to contact but is not picking her phone and and Gandy Dancer is going to 's house.
[2021-05-01] MEDS: TITRATION PARAMETER CHANGE 1 EACH IV (02:43)
--- NOTE | 2021-05-01 05:22 | NURSING ---
left on 's cell phone to call the icu due to a change in her 's condition.
[2021-05-01 05:28] LABS: Partial Thromboplast Time 85.9 Seconds (24.1-36.2)
--- NOTE | 2021-05-01 05:29 | NURSING ---
second call to . informed that cpr is in progress. i am not coming in. I just left there and I am leaving it in the Lord's hands. This RN asked if she wanted us to continue cpr and she stated to stop cpr.
--- NOTE | 2021-05-01 05:35 | CB_ITS ---
Code Blue Report Code Blue Summary Code Blue Summary: This is a 16 CODE BLUE summary. Patient lost his pulse. Mu ltiple rounds of CPR and epinephrine pushes were given. Patient was seen PEA. Levophed drip and vasopressin drip were going. Epinephrine drip was ordered. Patient was on mechanical ventilation. Patient's was left patient's and had at home advised that CPR should be discontinued.
[2021-05-01 07:20] LABS: Bedside Glucose 464 mg/dL (70-110)
[2021-05-01 09:51] LABS: Pathologist Review Reviewed
--- NOTE | 2021-05-01 17:48 | PCM.DEATH ---
Preliminary Cause of Preliminary Cause of Preliminary Cause of : Hypoxic respiratory failure secondary to COVID-19 pneumonia Date of Admission: 04/21/21 Principle Diagnosis Problem List: Active and Suspected Problems (Updated 04/29/21 @ 13:[address] Kehinde Oconnell MD) Hyperkalemia (Acute) PIPE (acute kidney injury) (Acute) Hypoxia (Acute) Pneumonia due to COVID-19 virus (Acute) Atrial flutter with rapid ventricular response (Acute) Hospital Course Mr. Elizabeth is a 71-year-old male presented to the hospital with shortness of breath and hypoxia. He started having symptoms on 04/14/2021 and tested positive on 04/20/2021. He was initially referred for the outpatient monoclonal antibody infusion however when he arrived to the infusion his oxygen saturation was 85% on room air therefore he was sent to the ER. Unfortunately due to renal function he was unable to have a CTA however he was found to be in paroxysmal a flutter and therefore was started on heparin drip regardless. He was transitioned to the ICU due to worsening respiratory status and on 04/27/2021 he was intubated. Echo for the A-flutter was unremarkable and he was given intermittent doses of Lasix to help with edema. Unfortunately at the time of his presentation he was outside the window for remdesivir and he did receive a few days of baricitinib. When intubated on 04/27/2021 he did have a sputum culture and was started on Zosyn by infectious disease. Culture ultimately showed MSSA being treated by the Zosyn. He developed subcutaneous emphysema and worsening renal function. On the morning of 05/01/2021 he was noticed to be in PEA a CODE BLUE was called and a dose of epinephrine was given with return of spontaneous circulation. At which point Levophed was increased and vasopressor was added. He then had a second CODE BLUE event and CPR was started however at that point the was able to be notified and she requested that CPR be discontinued. Mr. Elizabeth on 05/01/2021 at 0530. Assessment & Plan Assessment/Plan (1) Pneumonia due to COVID-19 virus: (2) Hypoxia:
== END 2021-05-01 09:00 | DRG 871 ==
LOC: ED 16:59 → PCU 17:08 → ICU 04-24 12:01
PROVIDERS: Internal Medicine; Internal Medicine Critical Care Medicine; Internal Medicine Infectious Disease; Admitting Provider Family Medicine; Emergency Provider Emergency Medicine; PCP Family Medicine; Visit Provider Family Medicine
DX: A41.89 Other specified sepsis (principal); U07.1 COVID-19; J12.82 Pneumonia due to coronavirus disease 2019; J96.01 Acute respiratory failure with hypoxia; E43 Unspecified severe protein-calorie malnutrition; I48.92 Unspecified atrial flutter; N17.9 Acute kidney failure, unspecified; Z68.41 Body mass index [BMI] 40.0-44.9, adult; T83.83XA Hemorrhage due to genitourinary prosthetic devices, implants and grafts, initial encounter; J98.2 Interstitial emphysema; R65.20 Severe sepsis without septic shock; Y84.6 Urinary catheterization as the cause of abnormal reaction of the patient, or of later complication, without mention of misadventure at the time of the procedure; E11.65 Type 2 diabetes mellitus with hyperglycemia; I12.9 Hypertensive chronic kidney disease with stage 1 through stage 4 chronic kidney disease, or unspecified chronic kidney disease; E11.22 Type 2 diabetes mellitus with diabetic chronic kidney disease; N18.31 Chronic kidney disease, stage 3a; E87.5 Hyperkalemia; E78.5 Hyperlipidemia, unspecified; K21.9 Gastro-esophageal reflux disease without esophagitis; G47.33 Obstructive sleep apnea (adult) (pediatric); E66.01 Morbid (severe) obesity due to excess calories; Z79.84 Long term (current) use of oral hypoglycemic drugs; Z79.82 Long term (current) use of aspirin; Z79.899 Other long term (current) drug therapy; Z85.46 Personal history of malignant neoplasm of prostate; Z90.49 Acquired absence of other specified parts of digestive tract
CPT/HCPCS: 31500; 31720; 36415; 36569; 36600; 71045; 76770; 80048; 80053; 80061; 82550; 82728; 82803; 82962; 83605; 83615; 83735; 83880; 84145; 84443; 84478; 84484; 85025; 85379; 85610; 85652; 85730; 86140; 87070; 87077; 87186; 87205; 87449; 87633; 87641; 92950; 93005; 93306; 94002; 94003; 97161; 97802; 97803; 99251; 99285; J7030; J7050; A4216; G0463; J1940; J3010; J3490